=== PATIENT | male | born 1940 | race Caucasian/White ===

== ENCOUNTER → 2019-01-06 | Outpatient (CLI) | payer OTHER, MEDICARE ==
[2019-01-06 07:06] LABS: BASOPHILS # (AUTO) 0.1 10^3/uL (0.0-0.1); BASOPHILS % (AUTO) 1 % (0-10); EOSINOPHILS # (AUTO) 1.5 10^3/uL (0.0-0.3); EOSINOPHILS % (AUTO) 16 % (0-10); HEMATOCRIT 32 % (40-54); HEMOGLOBIN 10.2 G/DL (13.3-17.7); LYMPHOCYTES # (AUTO) 0.7 X 10^3 (1.0-4.0); LYMPHOCYTES % (AUTO) 7 % (12-44); MEAN CORPUSCULAR HEMOGLOBIN 32 PG (25-34); MEAN CORPUSCULAR HGB CONC 32 G/DL (32-36); MEAN CORPUSCULAR VOLUME 99 FL (80-99); MEAN PLATELET VOLUME 10.1 FL (7.4-10.4); MONOCYTES # (AUTO) 0.8 X 10^3 (0.0-1.0); MONOCYTES % (AUTO) 8 % (0-12); NEUTROPHILS # (AUTO) 6.4 X 10^3 (1.8-7.8); NEUTROPHILS % (AUTO) 69 % (42-75); PLATELET COUNT 259 10^3/uL (130-400); RED CELL DISTRIBUTION WIDTH 14.2 % (10.0-14.5); WHITE BLOOD COUNT 9.4 10^3/uL (4.3-11.0)
== END ==
LOC: LABNPT 06:54
PROVIDERS: ATTEND Family Medicine
DX: Z01.89 Encounter for other specified special examinations (principal)
CPT/HCPCS: 85025

== ENCOUNTER 2022-02-09 14:44 | Inpatient (IN) | payer MEDICARE, OTHER ==
[~2022-02-09] VITALS: Ht 172.7 cm; Wt 93.1 kg
[2022-02-09] MEDS ORDERED: MILK OF MAGNESIA 400 MG/5 ML 30 ML UDC PO PRN (16:00)
[2022-02-09] MEDS ORDERED: polyethylene glycoL POWDER 17 GM (MIRALAX) PACK PO PRN (16:00)
[2022-02-09] MEDS ORDERED: ONDANSETRON 4 MG (ZOFRAN) ORAL DISSOLVE TAB PO PRN (16:00)
[2022-02-09] MEDS ORDERED: DexMEDEtomidine 250 ML DRIP 250 ML IV SCH (16:00)
[2022-02-09] MEDS ORDERED: ONDANSETRON 4 MG/2 ML (SDV) Z0FRAN IV PRN (16:00)
[2022-02-09] MEDS ORDERED: NS IV 500 ML 500 ML IV PRN (16:00)
[2022-02-09] MEDS ORDERED: ACETAMINOPHEN 325 MG TABLET PO PRN (16:00)
[2022-02-09] MEDS ORDERED: MELATONIN 3 MG TABLET PO PRN (16:00)
[2022-02-09] MEDS ORDERED: BISACODYL 10 MG SUPP (DULCOLAX) PR PRN (16:00)
[2022-02-09] MEDS ORDERED: NS IV 1000 ML 1,000 ML IV SCH (16:00)
[2022-02-09] MEDS ORDERED: PHARMACY TO DOSE IV SCH (16:00)
[2022-02-09] MEDS ORDERED: ANTACID SUSP 30 ML UDC (MYLANTA) PO PRN (16:00)
[2022-02-09] MEDS ORDERED: LIDOCAINE UROJET 2% GEL 10 ML PKG TOP ONE (16:00)
[2022-02-09] MEDS ORDERED: LACTULOSE SYRUP 10GM/15ML (ENULOSE) 30ML UDC PO PRN (16:00)
[2022-02-09] MEDS ORDERED: diphenhydrAMINE 25 MG TAB (BENADRYL) PO PRN (16:00)
[2022-02-09] MEDS ORDERED: HYDROmorphone 2 MG/ML VIAL (DILAUDID) IV PRN (16:00)
[2022-02-09] MEDS ORDERED: LORazepam INJ 2 MG/ML (ATIVAN) VIAL IVP PRN (16:00)
[2022-02-09] MEDS ORDERED: CALCIUM CARBONATE 500 MG (TUMS) TAB.CHEW PO PRN (16:00)
[2022-02-09] MEDS ORDERED: diphenhydrAMINE 50 MG/ML INJ (BENADRYL) IVP PRN (16:00)
--- NOTE | 2022-02-09 16:16 | History & Physical ---
History of Present Illness HPI/Chief Complaint CC: Hypovolemic shock HPI: This is a 81yoWM clinic patient of Dr Toussaint who presented to the [facility] ER with weakness and inability to walk. He had come to [facility] ER on 02/07/22 for weakness and diarrhea and had a stable w/u in labs at that time so he was sent home but came back today with worsened symptoms and found to have hypovolemic shock requiring aggressive IVF and Levophed for a short time along with biPAP. His creat was 3.3 and baseline is 1.8 and had oliguria but just now starting to produce urine. I know him from prior admit when he was diagnosed with pancreatic mass sent to Dr Richards s/p biopsies of unknown result. 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 Abx was initiated of Cefepime and Vanc empirically. Hydrocortisone IV will be ordered along with aggressive IVF. Central line will be needed and I did consult Dr Gillette and he is aware along with consultation with Dr Crowley and he will see patient. Eliquis will be maintained at his reduced Eliquis dosing of 2.5mg PO BID. 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 History of neoplasm of pituitary gland Z86.03 Active Hyperlipidemia E78.5 Active COVID-19 U07.1 Historic Hyperlipidemia, unspecified E78.5 Active Adrenal insufficiency E27.40 10/25/2021 Historic 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 10/25/2021 Historic Chronic kidney disease N18.9 10/25/2021 Historic Pancreatic mass K86.89 10/25/2021 Historic Abdominal aortic aneurysm I71.4 10/25/2021 Historic Mitral regurgitation I34.0 10/25/2021 Historic Acute gastroenteritis K52.9 Active Past Surgical History: Surgery List 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 Drinks 2-3 glasses of vodka 3 times a week. No drug use. Smoking Status: Smoking Status: Former smoker, Cessation Education: Allergy List NSAID, medication BEE VENOM, medication WASP VENOM, medication PEN-VK, medication Source: patient, RN/MD, old records Exam Limitations: clinical condition Date Seen 02/09/22 Time Seen by a Provider: 15:30 Attending Physician PCP Admitting Physician: Latisha Og DO Attending Physician: Latisha Og DO Referring Physician Date of Admission Home Medications & Allergies Home Medications Reviewed patient Home Medication Reconciliation performed by pharmacy medication reconciliations pharmacy picking technician and/or nursing. Patients Allergies have been reviewed. Allergies Allergies Coded Allergies Penicillins (Verified Allergy, Unknown, 02/09/22) Past Txzuanb-Ztyalt-Hdlurn Hx Past Med/Social Hx: Reviewed Nursing Past Med/Soc Hx, Reviewed and Corrections made Patient Social History Marrital Status: single Employed/Student: retired Alcohol Use: Occasionally Uses Smoking Status: Former Smoker Past Medical History Surgeries: Abdominal Respiratory: COPD Cardiac: Atrial Fibrillation, Coronary Artery Disease, High Cholesterol, Hypertension, Peripheral Vascular Neurological: Neuropathy Gastrointestinal: Gastroesophageal Reflux pancreatic mass Musculoskeletal: Arthritis Cancer: Pancreatic (?? biopsy pending) Review of Systems Constitutional: see HPI, dizziness, malaise, weakness EENTM: no symptoms reported Respiratory: cough, dyspnea on exertion Cardiovascular: no symptoms reported Gastrointestinal: no symptoms reported Genitourinary: no symptoms reported Musculoskeletal: no symptoms reported, back pain, joint pain Skin: no symptoms reported Psychiatric/Neurological: Anxiety Physical Exam Physical Exam Vital Signs Capillary Refill : Height, Weight, BMI Height: '" Weight: lbs. oz. kg; BMI Method: General Appearance: WD/WN, Anxious, Chronically ill, Moderate Distress Eyes: Bilateral Eye Normal Inspection, Bilateral Eye PERRL HEENT: PERRL/EOMI, Normal ENT Inspection, Pharynx Normal, Other (dry MM) Neck: Full Range of Motion, Normal Inspection, Non Tender, Supple, Carotid Bruit Respiratory: Chest Non Tender, Lungs Clear, No Accessory Muscle Use, No Respira tory Distress, Decreased Breath Sounds Cardiovascular: No Edema, No Gallop, No JVD, No Murmur, Normal Peripheral Pulses, Irregularly Irregular, Tachycardia Gastrointestinal: Normal Bowel Sounds, No Organomegaly, No Pulsatile Mass, Non Tender, Soft Back: Normal Inspection, No CVA Tenderness, No Vertebral Tenderness Extremity: Normal Capillary Refill, Normal Inspection, Normal Range of Motion, Non Tender, No Calf Tenderness, No Pedal Edema Neurologic/Psychiatric: Alert, Oriented x3, sap ppm consultant II-XII Norm as Tested, Depressed Affect, Motor Weakness Skin: Normal Color, Warm/Dry Lymphatic: No Adenopathy Results Results/Procedures Labs Patient resulted labs reviewed. Assessment/Plan Admission Diagnosis Assessment/Plan: Hypovolemic shock from recent diarrhea Oliguria maintain with muñoz and monitor closely ISREAL on CKD aggressive IVF 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 100mg IV Q6 hours Presumed PNA Pulmonary edema on CXR Chronic AF OAC maintained on reduced dose HTN HLP COPD GERD AAA Pancreatic mass managed by Dr Richards Admission Status: Inpatient Order (span 2 midnights) Reason for Inpatient Admission: reps failure with ISREAL Diagnosis/Problems Diagnosis/Problems (1) Hypovolemic shock LATISHA OG DO Feb 09, 2022 16:16
--- NOTE | 2022-02-09 18:01 | Tele-ICU Consult ---
Progress Note 81 y/o male who presents to ED with weakness and diarrhea. Was in ED several days ago with same complaint and discharged Now presents with ISREAL and shock Also has hx of hypopituitaryism on prednisione and synthroid Has a fib on eliquis IMP: hypovolemic shock PLAN: he was empirically started on antibiotics to cover sepsis Continue eliquius Aggressive hydration to treat ISREAL and hypotension Focused Exam Height, Weight, BMI Height: '" Weight: lbs. oz. kg; BMI Method: Results Results/Procedures Labs Patient resulted labs reviewed. GENARO LLOYD MD Feb 09, 2022 18:01
--- NOTE | 2022-02-09 18:24 | Diagnostic Imaging Report ---
INDICATION: Shortness of breath. COMPARISON: No comparison is available. FINDINGS: There are prominent interstitial markings within the lungs that may relate to interstitial lung disease. There are also airspace opacities at the left lung base and also the medial aspect of the right lung base that could reflect superimposed atelectasis or pneumonia. There is no large effusion. There is no pneumothorax. Heart size is appropriate. Central pulmonary vascularity appears normal. IMPRESSION: Probable background features of chronic interstitial lung disease with airspace opacities at the lung bases that may reflect superimposed atelectasis or pneumonia. Dictated by: Dictated on workstation # [id number]
--- NOTE | 2022-02-09 19:53 | CONSULTATION REPORT ---
ADMITTING PHYSICIAN: Dr. Dugan. ATTENDING PRIMARY CARE PHYSICIAN: Dr. Hina Toussaint. HISTORY OF PRESENT ILLNESS: The patient is a 81-year-old male who presented to [facility] Emergency Department with weakness and inability to walk. He had come to the Emergency Department 2 days previous for weakness and diarrhea and his labs were stable and he was sent home. He returned with worsening symptoms and appeared to be in hypovolemic shock and was treated with IV fluids as well as Levophed and also placed on BiPAP. The patient does also have very poor peripheral venous circulation and may need respiratory support with a ventilator as well as vasopressors and will require a central venous catheter. He is also on Eliquis for atrial fibrillation. PAST MEDICAL HISTORY: Atrial fibrillation, hypercholesterolemia, fibromyositis, COPD, hypertension, hypopituitarism, history of mycoplasma pneumoniae, anxiety, adrenocortical hypofunction, hyperlipidemia, history of COVID, adrenal insufficiency, chronic kidney disease, abdominal aortic aneurysm, mitral regurgitation, history of peptic ulcer disease. PAST SURGICAL HISTORY: Transsphenoidal excision of pituitary tumor 12, endovascular stent placement 15, tonsillectomy. ALLERGIES: PREDNISONE. MEDICATIONS: Apixaban 2.5 mg b.i.d., bisacodyl 10 mg per rectum p.r.n., diphenhydramine p.r.n., lorazepam p.r.n., lactulose p.r.n., Zofran p.r.n. SOCIAL HISTORY: Previous smoker, quit 2016, 40 pack years. Positive for alcohol, 3 times a week, drinking approximately 2-3 drinks per episode. FAMILY HISTORY: Father, bladder cancer. Mother, breast cancer. VITAL SIGNS: Stable. Oxygen saturation 100% on 3 liters nasal cannula. REVIEW OF SYSTEMS: This is a well-nourished male and currently in no acute distress. He is not experiencing any shortness of breath or difficulty breathing. No chest pain, palpitations or diaphoresis. No nausea or vomiting with intermittent episodes of loose stools, no red blood per rectum, no dark tarry stools. No fever or chills. No recent inadvertent weight loss. All other review of systems negative. PHYSICAL EXAMINATION: CHEST: Clear, good breath sounds bilaterally. HEART: Regular, no murmurs. EXTREMITIES: No lower extremity edema. Negative Homans sign. HEENT: No scleral icterus. No cervical lymphadenopathy. ABDOMEN: Soft, nontender, nondistended. SKIN: Warm, dry. LABORATORY DATA: WBC on 01/06 was 9.4, hemoglobin 10.2, hematocrit 32, platelets 258. ASSESSMENT AND PLAN: A 81-year-old male with septic shock of unknown etiology. This may be due to a respiratory source; however, there is the possibility of a gastrointestinal source. Either way, he does have extremely poor peripheral venous circulation and will require central venous access for probable vasopressor support and if he does have respiratory failure requiring intubation, he will also need the central venous catheter. Job ID: [id number] DocumentID: [id number] Dictated Date: 02/09/2022 19:13:16 Teacher Of The Emotionally Disturbed Date: 02/09/2022 19:51:00 Dictated By: PUSHPA COCHRAN MD
--- NOTE | 2022-02-09 20:30 | Diagnostic Imaging Report ---
INDICATION: Line placement. COMPARISON: Chest radiograph from earlier the same day. FINDINGS: A new left subclavian central line has been placed and terminates within the SVC. There is no pneumothorax. Interstitial changes are again noted. Aeration of the lung bases appears improved from the previous examination suggesting that the prior finding was more likely atelectasis than pneumonia. There is no large effusion. There is no pneumothorax. Heart size and mediastinal contours are stable. IMPRESSION: 1. Status post placement of a left subclavian line without pneumothorax. 2. Background features of COPD. 3. As the aeration of the lung bases has improved compared to the prior exam, this suggests the airspace opacities at the lung bases were more likely atelectasis than pneumonia. Dictated by: Dictated on workstation # [id number]
[2022-02-09] MEDS ORDERED: CEFEPIME INJECTION 2,000 MG in NS (IVPB) 50 ML IV SCH (21:00)
[2022-02-09 21:37] LABS: BASOPHILS % (AUTO) 0 % (0-10); EOSINOPHILS # (AUTO) 0.1 10^3/uL (0.0-0.3); EOSINOPHILS % (AUTO) 0 % (0-10); HEMATOCRIT 34 % (40-54); HEMOGLOBIN 11.1 g/dL (13.3-17.7); LYMPHOCYTES # (AUTO) 0.2 10^3/uL (1.0-4.0); LYMPHOCYTES % (AUTO) 1 % (12-44); MEAN CORPUSCULAR HEMOGLOBIN 33 pg (25-34); MEAN CORPUSCULAR HGB CONC 32 g/dL (32-36); MEAN CORPUSCULAR VOLUME 101 fL (80-99); MEAN PLATELET VOLUME 9.1 fL (9.0-12.2); MONOCYTES # (AUTO) 0.5 10^3/uL (0.0-1.0); MONOCYTES % (AUTO) 3 % (0-12); NEUTROPHILS # (AUTO) 17.6 10^3/uL (1.8-7.8); NEUTROPHILS % (AUTO) 95 % (42-75); PLATELET COUNT 240 10^3/uL (130-400); WHITE BLOOD COUNT 18.5 10^3/uL (4.3-11.0)
[2022-02-09 21:55] LABS: ALBUMIN 2.9 GM/DL (3.2-4.5); BILIRUBIN,TOTAL 0.7 MG/DL (0.1-1.0); CALCIUM 7.7 MG/DL (8.5-10.1); CREATININE SERUM 2.66 MG/DL (0.60-1.30); POTASSIUM 5.8 MMOL/L (3.6-5.0)
[2022-02-09 22:05] LABS: LYMPHOCYTES % (MANUAL) 3 %; MONOCYTES % (MANUAL) 2 %; NEUTROPHILS % (MANUAL) 95 %; POLYCHROMASIA MARKED
[2022-02-09 22:15] LABS: FREE T4 (FREE THYROXINE) 1.02 NG/DL (0.70-1.48)
[2022-02-09] MEDS ORDERED: VANCOMYCIN 500 MG/NS 100 ML IV ONE ×2 (22:15)
[2022-02-09 22:23] LABS: ABG OXYGEN SATURATION 54 % (94-100); ABG PCO2 47 MMHG (35-45); ABG TCO2 19.4 MMOL/L (21.0-31.0)
[2022-02-09] MEDS: DOCUSATE SODIUM 100 MG (COLACE) CAP PO SCH (22:24)
[2022-02-09] MEDS: SENNOSIDES 8.6 MG (SENOKOT) TAB PO SCH (22:25)
[2022-02-09 22:33] LABS: ABG PO2 32 MMHG (79-93); ALLENS TEST YES-POS; PATIENT TEMP 35.9; VENTILATOR NO
[2022-02-09] MEDS: NS IV 1000 ML 1,000 ML IV SCH (23:18)
[2022-02-09] MEDS: APIXABAN 2.5 MG (ELIQUIS) TABLET PO SCH (23:18)
[2022-02-09] MEDS: LORazepam 0.5 MG (ATIVAN) TABLET PO PRN (23:18)
[2022-02-09] MEDS: HYDROCORTISONE 100 MG/2 ML (Solu-CORTEF) VIAL IV SCH (23:19)
[2022-02-09] MEDS: NOREPINEPHRINE 8 MG/250 ML 250 ML IV SCH (23:20)
[2022-02-09] MEDS: CEFEPIME 1,000 MG/NS 50 ML IVPB IV SCH ×2 (23:20)
[2022-02-09] MEDS: inSUlin ASPART (NovoLOG) 1 UNIT/0.01 ML (CHARGE PER UNIT) SC SCH (23:27)
[2022-02-10 01:29] VITALS: BP 122/62
[2022-02-10] MEDS ORDERED: RT-ALBUTEROL/IPRATROPIUM 3 ML (DUONEB) VIAL INH PRN (01:45)
[2022-02-10] MEDS: RT-ALBUTEROL/IPRATROPIUM 3 ML (DUONEB) VIAL INH SCH ×4 (02:43→21:29)
--- NOTE | 2022-02-10 04:06 | OPERATIVE REPORT ---
DATE OF SERVICE: 02/09/2022 ATTENDING PRIMARY CARE PHYSICIAN: Hina Toussaint MD ADMITTING PHYSICIAN: Latisha Dugan DO PREOPERATIVE DIAGNOSIS: Symptomatic septic shock. POSTOPERATIVE DIAGNOSIS: Symptomatic septic shock. PROCEDURE: Placement of left subclavian central venous catheter. SURGEON: Pushpa Cochran MD ANESTHESIA: Local. ESTIMATED BLOOD LOSS: Minimal. FINDINGS: Catheter tip at the superior vena cava -- right atrial junction. DISPOSITION: The patient tolerated the procedure well. INDICATIONS: The patient is a 81-year-old male who was seen at [facility] Emergency Department with feelings of weakness as well as diarrhea and shortness of breath. He reports that he presented 2 days previous and his symptoms warrant as bad and he also had diarrhea at the time. He states this time around, he was short of breath and also did have some crampy abdominal pain. He was also found to be hypotensive. The patient has very poor peripheral venous circulation and will require a central venous catheter for possible vasopressors as well as medications after intubation, if necessary. DESCRIPTION OF PROCEDURE: The chest and neck were prepped and draped in standard surgical fashion. 1% lidocaine was then used to anesthetize the left subclavian region. The left subclavian vein was then cannulated with drawing of venous blood. The guidewire was then inserted without any resistance. The cannulating needle was removed and a skin incision was made using an 11 blade. A tract was then created through the abdominal wall layers using a venous dilator and through this opening, a triple lumen central venous catheter was placed over the guidewire using the Seldinger technique. All 3 ports bishop venous blood and saline pushed down without any resistance. The catheter was then sutured to the skin using 3-0 Vicryl interrupted sutures. The catheter was then cleaned and covered with Op-Site. The patient tolerated the procedure well. We will get a postprocedure chest x-ray and once confirmation of placement, the catheter may be accessed to use at any time report. Job ID: [id number] DocumentID: [id number] Dictated Date: 02/09/2022 19:17:16 Rn Acute Date: 02/10/2022 04:04:00 Dictated By: PUSHPA COCHRAN MD [facility]
[2022-02-10] MEDS: HYDROCORTISONE 100 MG/2 ML (Solu-CORTEF) VIAL IV SCH ×4 (05:23→23:54)
[2022-02-10 05:52] LABS: BASOPHILS % (AUTO) 0 % (0-10); EOSINOPHILS % (AUTO) 0 % (0-10); HEMATOCRIT 33 % (40-54); HEMOGLOBIN 10.4 g/dL (13.3-17.7); LYMPHOCYTES # (AUTO) 0.2 10^3/uL (1.0-4.0); LYMPHOCYTES % (AUTO) 1 % (12-44); MEAN CORPUSCULAR HEMOGLOBIN 31 pg (25-34); MEAN CORPUSCULAR HGB CONC 32 g/dL (32-36); MEAN CORPUSCULAR VOLUME 98 fL (80-99); MEAN PLATELET VOLUME 9.4 fL (9.0-12.2); MONOCYTES # (AUTO) 0.5 10^3/uL (0.0-1.0); MONOCYTES % (AUTO) 3 % (0-12); NEUTROPHILS # (AUTO) 17.8 10^3/uL (1.8-7.8); NEUTROPHILS % (AUTO) 95 % (42-75); PLATELET COUNT 252 10^3/uL (130-400); WHITE BLOOD COUNT 18.7 10^3/uL (4.3-11.0)
[2022-02-10 06:16] LABS: ALBUMIN 2.7 GM/DL (3.2-4.5); BILIRUBIN,TOTAL 0.5 MG/DL (0.1-1.0); CALCIUM 7.5 MG/DL (8.5-10.1); CREATININE SERUM 2.61 MG/DL (0.60-1.30); MAGNESIUM 1.6 MG/DL (1.6-2.4); PHOSPHORUS 4.8 MG/DL (2.3-4.7); POTASSIUM 5.4 MMOL/L (3.6-5.0); TOTAL PROTEIN 4.9 GM/DL (6.4-8.2)
[2022-02-10] MEDS: KCL 20 MEQ TAB (K-DUR) PO SCH (06:43)
[2022-02-10] MEDS: POTASSIUM CL 10MEQ/50ML IVPB 50 ML IV SCH (06:43)
[2022-02-10] MEDS: inSUlin ASPART (NovoLOG) 1 UNIT/0.01 ML (CHARGE PER UNIT) SC SCH ×4 (06:45→20:54)
[2022-02-10] MEDS: MAGNESIUM 1 GM/100 ML IVPB 100 ML IV SCH ×2 (06:57→09:00)
--- NOTE | 2022-02-10 08:52 | Consultation-Cardiology ---
HPI-Cardiology Cardiology Consultation: Date of Consultation 02/10/22 Time Seen by a Provider: 08:15 Date of Admission 02-09-22 Attending Physician Admitting Physician Admitting Physician: Latisha Dugan DO Attending Physician: Latisha Dugan DO Consulting Physician Олег Crowley MD HPI: Chief Complaint: A-fib Mr. Arevalo is a 81 yr old male admitted as a direct admit from [facility]. He reports for the last few days he has had increasing weakness, fatigue, nausea, SOB. He had been having diarrhea, but reports this has resolved. He denies any c/o CP, palpitations, syncope, near syncope or LE swelling. He does wear oxygen at . His primary renewable energy broker is Dr. Mckenna at [place]. He reports he is feeling better this morning. Review of Systems-Cardiology Review of Systems Constitutional: No chills; malaise Eyes: No vision change Ears/Nose/Throat: No epistaxis, No recent hearing loss Respiratory: As described under HPI Cardiovascular: As described under HPI Gastrointestinal: As described under HPI Genitourinary: No dysuria, No hematuria Musculoskeletal: no symptoms reported Skin: No rash on exposed areas, No ulcerations on exposed areas Psychiatric/Neurological: anxiety; No seizure, No focal weakness, No syncope Hematologic: No bleeding abnormalities VVT-[id number]-Rroktn Hx Patient Social History Marrital Status: single Employed/Student: retired Smoking Status: Former Smoker Have you traveled recently?: No Alcohol Use?: Yes Pt feels they are or have been: No Past Medical History PMH As described under Assessment. Family Medical History Family Medical History: He reports his father had "heart trouble"; exact details unknown. Allergies and Home Medications Allergies Coded Allergies: Penicillins (Verified Allergy, Unknown, 02/09/22) Patient Home Medication List Albuterol Sulfate (Ventolin Hfa) 90 Mcg Hfa.aer.ad, 1 PUFF INH Q4H PRN for SHORTNESS OF BREATH, (Reported) Entered as Reported by: PAULA CALZADA on 02/10/22 1111 Last Action: Reviewed Alprazolam (Alprazolam) 1 Mg Tablet, 1 MG PO HS, (Reported) Entered as Reported by: PAULA CALZADA on 02/10/22 1111 Last Action: Reviewed Atorvastatin Calcium (Atorvastatin Calcium) 20 Mg Tablet, 20 MG PO HS, (Reported) Entered as Reported by: PAULA CALZADA on 02/10/221110 Last Action: Reviewed Doxepin HCl (Doxepin HCl) 25 Mg Capsule, 25 MG PO HS PRN for SLEEP, (Reported) Entered as Reported by: PAULA CALZADA on 02/10/221110 Last Action: Reviewed Fluticasone Propionate (Flonase Allergy Relief) 50 Mcg/Actuation [place].susp, 1 SPRAY NS DAILY PRN for CONGESTION, (Reported) Entered as Reported by: PAULA CALZADA on 02/10/221110 Last Action: Reviewed Folic Acid (Folic Acid) 1 Mg Tablet, 1 MG PO DAILY, (Reported) Entered as Reported by: PAULA CALZADA on 02/10/221110 Last Action: Reviewed Furosemide (Furosemide) 20 Mg Tablet, 20 MG PO DAILY PRN for FLUID RETENTION, (Reported) Entered as Reported by: PAULA CALZADA on 02/10/221110 Last Action: Reviewed Levothyroxine Sodium (Levothyroxine Sodium) 125 Mcg Tablet, 125 MCG PO DAILY, (Reported) Entered as Reported by: PAULA CALZADA on 02/10/221110 Last Action: Reviewed Metoprolol Succinate (Metoprolol Succinate) 50 Mg Tab.er.24h, 25 MG PO BID, (Reported) Entered as Reported by: PAULA CALZADA on 02/10/221110 Last Action: Reviewed Pantoprazole Sodium (Pantoprazole Sodium) 40 Mg Tablet.dr, 40 MG PO DAILY, (Rep orted) Entered as Reported by: PAULA CALZADA on 02/10/221110 Last Action: Reviewed Prednisone (Prednisone) 10 Mg Tab, 10 MG PO DAILY, (Reported) Entered as Reported by: PAULA CALZADA on 02/10/221110 Last Action: Reviewed Discontinued Medications Apixaban (Eliquis) 2.5 Mg Tablet, 2.5 MG PO BID, (Reported) Discontinued Reason: No Longer Taking Entered as Reported by: PAULA CALZADA on 02/10/221110 Last Action: Discontinued Physical Exam-Cardiology Physical Exam Vital Signs/I&O 02/10/22 02/10/22 02/10/22 02/10/22 20:00 20:00 20:10 21:00 Temp 36.8 Pulse 117 112 Resp 22 B/P (MAP) 130/71 (90) 135/81 (99) Pulse Ox 94 96 95 O2 Delivery Nasal Cannula Nasal Cannula Nasal Cannula O2 Flow Rate 2.00 2.00 2.00 02/10/22 02/10/22 02/10/22 02/10/22 21:29 22:00 23:00 23:19 Pulse 120 122 Resp 17 B/P (MAP) 147/80 (102) 125/60 (81) Pulse Ox 95 95 98 95 O2 Delivery Nasal Cannula Nasal Cannula Nasal Cannula Nasal Cannula O2 Flow Rate 2.00 2.00 2.00 2.00 02/11/22 02/11/22 02/11/22 02/11/22 00:00 01:00 01:00 02:00 Pulse 112 112 112 112 Resp 25 22 B/P (MAP) 131/67 (88) 153/75 (101) 112/63 (79) Pulse Ox 100 97 95 O2 Delivery Nasal Cannula Nasal Cannula Nasal Cannula O2 Flow Rate 2.00 2.00 2.00 02/11/22 02/11/22 02/11/22 02/11/22 03:00 04:00 04:00 04:00 Temp 37.0 Pulse 107 114 Resp 22 28 B/P (MAP) 135/64 (87) 133/68 (89) Pulse Ox 95 96 94 O2 Delivery Nasal Cannula Nasal Cannula Nasal Cannula Nasal Cannula O2 Flow Rate 2.00 2.00 2.00 2.00 02/11/22 02/11/22 02/11/22 05:00 06:00 07:21 Pulse 112 106 Resp 22 30 B/P (MAP) 132/79 (96) 133/98 (110) Pulse Ox 95 97 96 O2 Delivery Nasal Cannula Nasal Cannula Nasal Cannula O2 Flow Rate 2.00 2.00 2.00 02/11/22 00:00 Intake Total 2100 ml Output Total 495 ml Balance 1605 ml Capillary Refill : Constitutional: AAO x 3, well-developed, well-nourished HEENT: PERRL, hearing is well preserved, oral hygience is good Neck: No carotid bruit; carotid pulses are 2 + bilaterally Respiratory: No accessory muscle use, No respiratory distress; chest expansion is symmetric, chest is bilaterally symmetric, rhonchi (scattered), other (diminished throughout) Cardiovascular: irregularly irregular; No JVD; S1 and S2, systolic murmur Gastrointestinal: No tender; soft, round, audible bowel sounds Extremities: other (mild bilat LE swelling) Neurologic/Psychiatric: grossly intact (moves all extremities) Skin: No rash on exposed areas, No ulcerations on exposed areas; other (friable skin on arms) Data Review Labs Laboratory Tests 02/10/22 10:30: Blood Gas Puncture Site NA, Blood Gas Patient Temperature 37.0, Arterial Blood pH 7.20*L, Arterial Blood Partial Pressure CO2 33L, Arterial Blood Partial Pressure O2 85, Arterial Blood HCO3 13*L, Arterial Blood Total CO2 13.7L, Arterial Blood Oxygen Saturation 96, Arterial Blood Base Excess -13.8L, Nickolas Test NA, Blood Gas Ventilator Setting NO, Blood Gas Inspired Oxygen NA 02/10/22 10:51: Glucometer 190H 02/10/22 15:40: Sodium Level 134L, Potassium Level 4.6, Chloride Level 104, Carbon Dioxide Level 18L, Anion Gap 12, Blood Urea Nitrogen 36H, Creatinine 2.66H, Estimat Glomerular Filtration Rate 24, BUN/Creatinine Ratio 14, Glucose Level 242H, Lactic Acid Level 2.92*H, Calcium Level 7.3L 02/10/22 15:43: Glucometer 228H 02/10/22 20:40: Glucometer 248H 02/10/22 23:00: Sodium Level 134L, Potassium Level 3.8, Chloride Level 102, Carbon Dioxide Level 18L, Anion Gap 14, Blood Urea Nitrogen 40H, Creatinine 2.59H, Estimat Glomerular Filtration Rate 24, BUN/Creatinine Ratio 15, Glucose Level 293H, Calcium Level 6.9L 02/11/22 01:09: Glucometer 299H 02/11/22 03:45: Sodium Level 135, Potassium Level 3.8, Chloride Level 100, Carbon Dioxide Level 21, Anion Gap 14, Blood Urea Nitrogen 41H, Creatinine 2.44H, Estimat Glomerular Filtration Rate 26, BUN/Creatinine Ratio 17, Glucose Level 288H, Calcium Level 6.8L, White Blood Count 13.7H, Red Blood Count 2.69L, Hemoglobin 8.4L, Hematocrit 26L, Mean Corpuscular Volume 96, Mean Corpuscular Hemoglobin 31, Mean Corpuscular Hemoglobin Concent 33, Red Cell Distribution Width 14.1, Platelet Count 184, Mean Platelet Volume 9.6, Immature Granulocyte % (Auto) 1, Neutrophils (%) (Auto) 94H, Lymphocytes (%) (Auto) 0L, Monocytes (%) (Auto) 5, Eosinophils (%) (Auto) 0, Basophils (%) (Auto) 0, Neutrophils # (Auto) 12.9H, Lymphocytes # (Auto) 0.1L, Monocytes # (Auto) 0.6, Eosinophils # (Auto) 0.0, Basophils # (Auto) 0.0, Immature Granulocyte # (Auto) 0.1, Lactic Acid Level 4.02*H, Corrected Calcium 8.0L, Phosphorus Level 2.9, Magnesium Level 1.9, Total Bilirubin 0.3, Aspartate Amino Transf (AST/SGOT) 37H, Alanine Aminotransferase (ALT/SGPT) 23, Alkaline Phosphatase 58, Total Protein 4.5L, Albumin 2.5L 02/11/22 03:50: Blood Gas Puncture Site LEFT RADIAL, Blood Gas Patient Temperature 37, Arterial Blood pH 7.41, Arterial Blood Partial Pressure CO2 36, Arterial Blood Partial Pressure O2 80, Arterial Blood HCO3 23, Arterial Blood Total CO2 24.0, Arterial Blood Oxygen Saturation 97, Arterial Blood Base Excess -1.1, Nickolas Test YES-POS, Blood Gas Ventilator Setting NO, Blood Gas Inspired Oxygen 2L A/P-Cardiology Assessment/Admission Diagnosis Progressive weakness Diarrhea Acute on chronic exacerbation of COPD - management per medical/eICU services Acute on chronic renal disease - reports follows with nephrology at [place] in [place], [place] Chronic a-fib - BB for rate control - OAC with Eliquis (low dose d/t renal dz) H/O AAA repair approx 8 yrs ago - reports h/o re-do AAA repair with endo-graft x 2 approx 2 months ago in [place], [place] H/O pituitary tumor (benign) 11 yrs ago Hyperthyroidisim - according to lab of 02-10-22 (TSH 0.00) Anxiety Noc hypoxia - oxygen at 2.5 L/NC at hs H/O tobaccoism - quit 5 yrs ago after a 45-50 yr smoking history Discussion and Recomendations Progressive weakness - management per medical services Acute on chronic exacerbation of COPD with possible pneumonia - management per medical services Chronic a-fib - HR not ideal - resume home dose of BB - continue OAC with Eliquis for stroke prophylaxis (already on renal dosing) Echocardiogram today Acute on chronic renal dz - Cr improving with IVF hydration Request records from Dr. Mckenna at [place] Further recs will be based on his hospital course We would like to thank medical services for this consult WON SEXTON Feb 10, 2022 08:52
[2022-02-10] MEDS: PANTOPRAZOLE 40 MG (PROTONIX) VIAL IV SCH (09:00)
[2022-02-10] MEDS: APIXABAN 2.5 MG (ELIQUIS) TABLET PO SCH ×2 (09:00→20:52)
[2022-02-10] MEDS: NS IV 1000 ML 1,000 ML IV SCH ×2 (09:00)
[2022-02-10] MEDS: DOCUSATE SODIUM 100 MG (COLACE) CAP PO SCH ×2 (09:01→21:15)
[2022-02-10] MEDS: SENNOSIDES 8.6 MG (SENOKOT) TAB PO SCH ×2 (09:01→21:15)
--- NOTE | 2022-02-10 09:02 | Diagnostic Imaging Report ---
INDICATION: Dyspnea. Comparison is made with prior examination 02/09/2022 FINDINGS: The heart size is stable. There is bibasilar subsegmental atelectasis and/or pneumonitis. There is no pleural effusion or pneumothorax. Mediastinum is unremarkable. A left subclavian central venous catheter has its tip in the upper superior vena cava. IMPRESSION: Bibasilar subsegmental atelectasis and/or pneumonitis. Dictated by: Dictated on workstation # [id number]
[2022-02-10] MEDS: CEFEPIME 1,000 MG/NS 50 ML IVPB IV SCH ×4 (09:43→22:24)
[2022-02-10] MEDS: NOREPINEPHRINE 8 MG/250 ML 250 ML IV SCH (10:53)
[2022-02-10 11:03] LABS: ABG BASE EXCESS -13.8 MMOL/L (-2.5-2.5); ABG OXYGEN SATURATION 96 % (94-100); ABG PCO2 33 MMHG (35-45); ABG PO2 85 MMHG (79-93); ABG TCO2 13.7 MMOL/L (21.0-31.0)
[2022-02-10] MEDS ORDERED: METO50TA7 PO (11:11)
[2022-02-10] MEDS ORDERED: FLUT9.9S NS (11:11)
[2022-02-10] MEDS ORDERED: ALBU18HF2 INH (11:11)
[2022-02-10] MEDS ORDERED: ALPR1TAB7 PO (11:11)
[2022-02-10] MEDS ORDERED: FURO20TA4 PO (11:11)
[2022-02-10] MEDS ORDERED: LEVO125T6 PO (11:11)
[2022-02-10] MEDS ORDERED: PANT40TA52 PO (11:11)
[2022-02-10] MEDS ORDERED: ATOR20TA66 PO (11:11)
[2022-02-10] MEDS ORDERED: DOXE25CA46 PO (11:11)
[2022-02-10] MEDS ORDERED: APIX2.5T PO (11:11)
[2022-02-10] MEDS ORDERED: FOLI1TAB33 PO (11:11)
[2022-02-10] MEDS ORDERED: PRD10T PO (11:11)
[2022-02-10 11:27] LABS: VENTILATOR NO
--- NOTE | 2022-02-10 11:56 | Progress Note ---
[facility] 02/10/22 1156: Subjective Date Seen by a Provider: Feb 10, 2022 Time Seen by a Provider: 09:45 Subjective/Events-last exam This is a 81yoWM clinic patient of Dr Toussaint who presented to the [facility] ER 02/09/22 with weakness requiring aggressive IVF and Levophed via central line for a short time along with biPAP which he is no longer on. He does wear oxygen at hs, 2.5L via NC. His primary fountain brush assembler is Dr. Mckenna at [facility]. Today he states he is feeling better without any new complaints. Denies CP, SOB, abdominal pain. His last BM was yesterday and was loose. Urine output from muñoz was 300 cc overnight. CXR today with bibasilar subsegmental atelectasis and/or pneumonitis. Cardiology was consulted and he was seen by Dr. Crowley today. His daughter is working with social workers to obtain a home health aid for pt. Review of Systems General: No Chills, No Night Sweats HEENT: No Head Aches, No Visual Changes Pulmonary: No Dyspnea, No Cough Cardiovascular: No: Chest Pain, Palpitations Gastrointestinal: No: Nausea, Vomiting, Abdominal Pain Genitourinary: No Dysuria, No Frequency Musculoskeletal: No: neck pain, shoulder pain Neurological: No: Weakness, Numbness Focused Exam Lactate Level 02/09/22 21:25: Lactic Acid Level 1.43 Objective Exam Last Set of Vital Signs Vital Signs Date Time Temp Pulse Resp B/P (MAP) Pulse Ox O2 Delivery O2 Flow Rate FiO2 02/10/22 11:27 Nasal Cannula 3.00 02/10/22 10:00 126 38 120/106 (111) 93 02/10/22 08:00 36.8 Capillary Refill : I&O Intake and Output 02/10/22 00:00 Intake Total 200 ml Output Total 200 ml Balance 0 ml Intake Oral 200 ml Output Urine Total 200 ml Daily Weight Change Unsure General: Alert, Oriented X3, Cooperative, No Acute Distress HEENT: PERRLA, EOMI Neck: Supple, No JVD Lungs: Other (decreased breath sounds throughout) Heart: Normal S1, Normal S2, Other (irregularly irregular) Abdomen: Normal Bowel Sounds, Soft, No Tenderness Extremities: No Cyanosis, Normal Pulses Skin: No Significant Lesion Neuro: Normal Speech Psych/Mental Status: Mental Status NL, Mood NL Results Lab Laboratory Tests 02/09/22 21:25: White Blood Count 18.5H, Red Blood Count 3.41L, Hemoglobin 11.1L, Hematocrit 34L , Mean Corpuscular Volume 101H, Mean Corpuscular Hemoglobin 33, Mean Corpuscular Hemoglobin Concent 32, Red Cell Distribution Width 14.0, Platelet Count 240, Mean Platelet Volume 9.1, Immature Granulocyte % (Auto) 1, Neutrophils (%) (Auto) 95H, Lymphocytes (%) (Auto) 1L, Monocytes (%) (Auto) 3, Eosinophils (%) (Auto) 0, Basophils (%) (Auto) 0, Neutrophils # (Auto) 17.6H, Lymphocytes # (Auto) 0.2L, Monocytes # (Auto) 0.5, Eosinophils # (Auto) 0.1, Basophils # (Auto) 0.0, Immature Granulocyte # (Auto) 0.2H, Neutrophils % (Manual) 95, Lymphocytes % (Manual) 3, Monocytes % (Manual) 2, Polychromasia MARKED, Sodium Level 134L, Potassium Level 5.8H, Chloride Level 105, Carbon Dioxide Level 15L, Anion Gap 14, Blood Urea Nitrogen 27H, Creatinine 2.66H, Estimat Glomerular Filtration Rate 24, BUN/Creatinine Ratio 10, Glucose Level 158H, Lactic Acid Level 1.43, Calcium Level 7.7L, Corrected Calcium 8.6, Total Bilirubin 0.7, Aspartate Amino Transf (AST/SGOT) 73H, Alanine Aminotransferase (ALT/SGPT) 32, Alkaline Phosphatase 65, Total Protein 5.0L, Albumin 2.9L, Procalcitonin 4.04H, Thyroid Stimulating Hormone (TSH) 0.00L, Free Thyroxine 1.02 02/09/22 22:10: Blood Gas Puncture Site LEFT RADIAL, Blood Gas Patient Temperature 35.9, Arterial Blood pH 7.20*L, Arterial Blood Partial Pressure CO2 47H, Arterial Blood Partial Pressure O2 32*L, Arterial Blood HCO3 18L, Arterial Blood Total CO2 19.4L, Arterial Blood Oxygen Saturation 54L, Arterial Blood Base Excess - 9.0L, Nickolas Test YES-POS, Blood Gas Ventilator Setting NO, Blood Gas Inspired Oxygen NA 02/09/22 23:27: Glucometer 160H 02/10/22 05:27: White Blood Count 18.7H, Red Blood Count 3.36L, Hemoglobin 10.4L, Hematocrit 33L , Mean Corpuscular Volume 98, Mean Corpuscular Hemoglobin 31, Mean Corpuscular Hemoglobin Concent 32, Red Cell Distribution Width 13.8, Platelet Count 252, Mean Platelet Volume 9.4, Immature Granulocyte % (Auto) 1, Neutrophils (%) (Auto) 95H, Lymphocytes (%) (Auto) 1L, Monocytes (%) (Auto) 3, Eosinophils (%) (Auto) 0, Basophils (%) (Auto) 0, Neutrophils # (Auto) 17.8H, Lymphocytes # (Auto) 0.2L, Monocytes # (Auto) 0.5, Eosinophils # (Auto) 0.0, Basophils # (Auto) 0.0, Immature Granulocyte # (Auto) 0.2H, Sodium Level 134L, Potassium Level 5.4H, Chloride Level 107, Carbon Dioxide Level 15L, Anion Gap 12, Blood Urea Nitrogen 31H, Creatinine 2.61H, Estimat Glomerular Filtration Rate 24, BUN/Creatinine Ratio 12, Glucose Level 153H, Calcium Level 7.5L, Corrected Calcium 8.5, Total Bilirubin 0.5, Aspartate Amino Transf (AST/SGOT) 61H, Alanine Aminotransferase (ALT/SGPT) 29, Alkaline Phosphatase 63, Total Protein 4.9L, Albumin 2.7L, Procalcitonin 4.00H, Phosphorus Level 4.8H, Magnesium Level 1.6 02/10/22 10:30: Blood Gas Puncture Site NA, Blood Gas Patient Temperature 37.0, Arterial Blood pH 7.20*L, Arterial Blood Partial Pressure CO2 33L, Arterial Blood Partial Pressure O2 85, Arterial Blood HCO3 13*L, Arterial Blood Total CO2 13.7L, Arterial Blood Oxygen Saturation 96, Arterial Blood Base Excess -13.8L, Nickolas Test NA, Blood Gas Ventilator Setting NO, Blood Gas Inspired Oxygen NA 02/10/22 10:51: Glucometer 190H Assessment/Plan Assessment/Plan Assess & Plan/Chief Complaint Assessment/Plan: Hypovolemic shock from recent diarrhea Oliguria maintain with muñoz and continue to monitor closely ISREAL on CKD aggressive IVF 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 100mg IV Q6 hours Presumed PNA- empiric vanc and cefepime started Pulmonary edema on CXR Chronic AF OAC maintained on reduced dose HTN HLP COPD GERD AAA Pancreatic mass managed by Dr Richards- pt has not yet been given results of biopsy CHELSY OG DO 02/11/22 0527: Assessment/Plan Assessment/Plan Assess & Plan/Chief Complaint Assessment/Plan: Hypovolemic shock from recent diarrhea Oliguria maintain with muñoz and monitor closely ISREAL on CKD aggressive IVF 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 I reviewed and verified all information documented by the medical student and made modifications to such information, when appropriate. I personally performed the physical exam and medical decision making. Chelsy Og Feb 11, 2022,05:27 JULIAN PEREZ Feb 10, 2022 11:56 CHELSY OG DO Feb 11, 2022 05:27
--- NOTE | 2022-02-10 12:33 | Consultation-Cardiology ---
HPI-Cardiology Cardiology Consultation: Date of Consultation 02/10/22 Time Seen by a Provider: 09:15 Date of Admission Attending Physician Admitting Physician Admitting Physician: Latisha Dugan DO Attending Physician: Latisha Dugan DO Consulting Physician KAYLENE NINO MD, MA, FACP, FACC, [facility], CCDS Physician requesting consult: Dr Dugan HPI: Chief Complaint: Reason for Card consult: A-fib Mr. Arevalo is a 81 yr old male admitted as a direct admit from [facility]. He reports for the last few days he has had increasing weakness, fatigue, nausea, SOB. He had been having diarrhea, but reports this has resolved. He denies any c/o CP, palpitations, syncope, near syncope or LE swelling. He does wear oxygen at . His primary icu nurse is Dr. Mckenna at [facility]. He reports he is feeling better this morning. Review of Systems-Cardiology Review of Systems Constitutional: No chills; malaise Eyes: No vision change Ears/Nose/Throat: No epistaxis, No recent hearing loss Respiratory: As described under HPI Cardiovascular: As described under HPI Gastrointestinal: As described under HPI Genitourinary: No dysuria, No hematuria Musculoskeletal: no symptoms reported Skin: No rash on exposed areas, No ulcerations on exposed areas Psychiatric/Neurological: anxiety; No seizure, No focal weakness, No syncope Hematologic: No bleeding abnormalities HKI-Jeifvw-Ulerzz Hx Patient Social History Marrital Status: single Employed/Student: retired Smoking Status: Former Smoker Have you traveled recently?: No Alcohol Use?: Yes Pt feels they are or have been: No Past Medical History PMH As described under Assessment. Family Medical History Family Medical History: He reports his father had "heart trouble"; exact details unknown. Allergies and Home Medications Allergies Coded Allergies: Penicillins (Verified Allergy, Unknown, 02/09/22) Patient Home Medication List Home Medication List Reviewed: Yes Albuterol Sulfate (Ventolin Hfa) 90 Mcg Hfa.aer.ad, 1 PUFF INH Q4H PRN for SHORTNESS OF BREATH, (Reported) Entered as Reported by: PAULA CALZADA on 02/10/22 1111 Last Action: Reviewed Alprazolam (Alprazolam) 1 Mg Tablet, 1 MG PO HS, (Reported) Entered as Reported by: PAULA CALZADA on 12/5/22 1111 Last Action: Reviewed Atorvastatin Calcium (Atorvastatin Calcium) 20 Mg Tablet, 20 MG PO HS, (Reported) Entered as Reported by: PAULA CALZADA on 02/10/221110 Last Action: Reviewed Doxepin HCl (Doxepin HCl) 25 Mg Capsule, 25 MG PO HS PRN for SLEEP, (Reported) Entered as Reported by: PAULA CALZADA on 02/10/221110 Last Action: Reviewed Fluticasone Propionate (Flonase Allergy Relief) 50 Mcg/Actuation [place].susp, 1 SPRAY NS DAILY PRN for CONGESTION, (Reported) Entered as Reported by: PAULA CALZADA on 02/10/221110 Last Action: Reviewed Folic Acid (Folic Acid) 1 Mg Tablet, 1 MG PO DAILY, (Reported) Entered as Reported by: PAULA CAZLADA on 02/10/221110 Last Action: Reviewed Furosemide (Furosemide) 20 Mg Tablet, 20 MG PO DAILY PRN for FLUID RETENTION, (Reported) Entered as Reported by: APULA CALZADA on 02/10/221110 Last Action: Reviewed Levothyroxine Sodium (Levothyroxine Sodium) 125 Mcg Tablet, 125 MCG PO DAILY, (Reported) Entered as Reported by: PAULA CALZADA on 02/10/221110 Last Action: Reviewed Metoprolol Succinate (Metoprolol Succinate) 50 Mg Tab.er.24h, 25 MG PO BID, (Reported) Entered as Reported by: PAULA CALZADA on 02/10/221110 Last Action: Reviewed Pantoprazole Sodium (Pantoprazole Sodium) 40 Mg Tablet.dr, 40 MG PO DAILY, (Reported) Entered as Reported by: PAULA CALZADA on 02/10/221110 Last Action: Reviewed Prednisone (Prednisone) 10 Mg Tab, 10 MG PO DAILY, (Reported) Entered as Reported by: PAULA CALZADA on 02/10/221110 Last Action: Reviewed Discontinued Medications Apixaban (Eliquis) 2.5 Mg Tablet, 2.5 MG PO BID, (Reported) Discontinued Reason: No Longer Taking Entered as Reported by: PAULA CALZADA on 02/10/221110 Last Action: Discontinued Physical Exam-Cardiology Physical Exam Vital Signs/I&O 02/10/22 02/10/22 02/10/22 02/10/22 00:32 01:00 01:00 01:29 Temp 36.6 36.6 Pulse 120 118 121 Resp 16 B/P (MAP) 128/63 (84) Pulse Ox 97 98 O2 Delivery Nasal Cannula O2 Flow Rate 3.00 02/10/22 02/10/22 02/10/22 02/10/22 02:00 02:43 03:00 04:00 Pulse 108 106 107 Resp 19 18 18 B/P (MAP) 120/50 (73) 113/61 (78) 122/58 (79) Pulse Ox 99 98 98 97 O2 Delivery Nasal Cannula Nasal Cannula Nasal Cannula Nasal Cannula O2 Flow Rate 3.00 2.00 3.00 3.00 02/10/22 02/10/22 02/10/22 02/10/22 04:00 05:00 06:00 07:00 Pulse 106 105 109 Resp 17 18 29 B/P (MAP) 123/68 (86) 117/66 (83) 138/76 (96) Pulse Ox 98 97 96 O2 Delivery Nasal Cannula Nasal Cannula Nasal Cannula Nasal Cannula O2 Flow Rate 3.00 3.00 3.00 3.00 02/10/22 02/10/22 02/10/22 02/10/22 07:19 07:54 08:00 08:00 Temp 36.8 Pulse 120 114 Resp 27 B/P (MAP) 104/92 (96) Pulse Ox 98 95 O2 Delivery Nasal Cannula Nasal Cannula O2 Flow Rate 3.00 3.00 02/10/22 02/10/22 02/10/22 02/10/22 08:00 09:00 10:00 11:27 Pulse 111 126 Resp 27 38 B/P (MAP) 133/67 (89) 120/106 (111) Pulse Ox 96 93 O2 Delivery Nasal Cannula Nasal Cannula Nasal Cannula Nasal Cannula O2 Flow Rate 3.00 3.00 3.00 3.00 02/10/22 00:00 Intake Total 200 ml Output Total 200 ml Balance 0 ml Capillary Refill : Constitutional: AAO x 3, well-developed, well-nourished HEENT: PERRL, hearing is well preserved, oral hygience is good Neck: No carotid bruit; carotid pulses are 2 + bilaterally Respiratory: No accessory muscle use, No respiratory distress; chest expansion is symmetric, chest is bilaterally symmetric, rhonchi (scattered), other (diminished throughout) Cardiovascular: irregularly irregular; No JVD; S1 and S2, systolic murmur Gastrointestinal: No tender; soft, round, audible bowel sounds Extremities: other (mild bilat LE swelling) Neurologic/Psychiatric: grossly intact (moves all extremities) Skin: No rash on exposed areas, No ulcerations on exposed areas; other (friable skin on arms) Data Review Labs Laboratory Tests 02/09/22 21:25: White Blood Count 18.5H, Red Blood Count 3.41L, Hemoglobin 11.1L, Hematocrit 34L , Mean Corpuscular Volume 101H, Mean Corpuscular Hemoglobin 33, Mean Corpuscular Hemoglobin Concent 32, Red Cell Distribution Width 14.0, Platelet Count 240, Me an Platelet Volume 9.1, Immature Granulocyte % (Auto) 1, Neutrophils (%) (Auto) 95H, Lymphocytes (%) (Auto) 1L, Monocytes (%) (Auto) 3, Eosinophils (%) (Auto) 0, Basophils (%) (Auto) 0, Neutrophils # (Auto) 17.6H, Lymphocytes # (Auto) 0.2L , Monocytes # (Auto) 0.5, Eosinophils # (Auto) 0.1, Basophils # (Auto) 0.0, Immature Granulocyte # (Auto) 0.2H, Neutrophils % (Manual) 95, Lymphocytes % (Manual) 3, Monocytes % (Manual) 2, Polychromasia MARKED, Sodium Level 134L, Potassium Level 5.8H, Chloride Level 105, Carbon Dioxide Level 15L, Anion Gap 14, Blood Urea Nitrogen 27H, Creatinine 2.66H, Estimat Glomerular Filtration Rate 24, BUN/Creatinine Ratio 10, Glucose Level 158H, Lactic Acid Level 1.43, Calcium Level 7.7L, Corrected Calcium 8.6, Total Bilirubin 0.7, Aspartate Amino Transf (AST/SGOT) 73H, Alanine Aminotransferase (ALT/SGPT) 32, Alkaline Phosphatase 65, Total Protein 5.0L, Albumin 2.9L, Procalcitonin 4.04H, Thyroid Stimulating Hormone (TSH) 0.00L, Free Thyroxine 1.02 02/09/22 22:10: Blood Gas Puncture Site LEFT RADIAL, Blood Gas Patient Temperature 35.9, Arterial Blood pH 7.20*L, Arterial Blood Partial Pressure CO2 47H, Arterial Blood Partial Pressure O2 32*L, Arterial Blood HCO3 18L, Arterial Blood Total CO2 19.4L, Arterial Blood Oxygen Saturation 54L, Arterial Blood Base Excess - 9.0L, Nickolas Test YES-POS, Blood Gas Ventilator Setting NO, Blood Gas Inspired Oxygen NA 02/09/22 23:27: Glucometer 160H 02/10/22 05:27: White Blood Count 18.7H, Red Blood Count 3.36L, Hemoglobin 10.4L, Hematocrit 33L , Mean Corpuscular Volume 98, Mean Corpuscular Hemoglobin 31, Mean Corpuscular Hemoglobin Concent 32, Red Cell Distribution Width 13.8, Platelet Count 252, Mean Platelet Volume 9.4, Immature Granulocyte % (Auto) 1, Neutrophils (%) (Auto) 95H, Lymphocytes (%) (Auto) 1L, Monocytes (%) (Auto) 3, Eosinophils (%) (Auto) 0, Basophils (%) (Auto) 0, Neutrophils # (Auto) 17.8H, Lymphocytes # (Auto) 0.2L, Monocytes # (Auto) 0.5, Eosinophils # (Auto) 0.0, Basophils # (Auto) 0.0, Immature Granulocyte # (Auto) 0.2H, Sodium Level 134L, Potassium Level 5.4H, Chloride Level 107, Carbon Dioxide Level 15L, Anion Gap 12, Blood Urea Nitrogen 31H, Creatinine 2.61H, Estimat Glomerular Filtration Rate 24, BUN/Creatinine Ratio 12, Glucose Level 153H, Calcium Level 7.5L, Corrected Calcium 8.5, Total Bilirubin 0.5, Aspartate Amino Transf (AST/SGOT) 61H, Alanine Aminotransferase (ALT/SGPT) 29, Alkaline Phosphatase 63, Total Protein 4.9L, Albumin 2.7L, Procalcitonin 4.00H, Phosphorus Level 4.8H, Magnesium Level 1.6 02/10/22 10:30: Blood Gas Puncture Site NA, Blood Gas Patient Temperature 37.0, Arterial Blood pH 7.20*L, Arterial Blood Partial Pressure CO2 33L, Arterial Blood Partial Pressure O2 85, Arterial Blood HCO3 13*L, Arterial Blood Total CO2 13.7L, A rterial Blood Oxygen Saturation 96, Arterial Blood Base Excess -13.8L, Nickolas Test NA, Blood Gas Ventilator Setting NO, Blood Gas Inspired Oxygen NA 02/10/22 10:51: Glucometer 190H A/P-Cardiology Assessment/Admission Diagnosis Progressive weakness Diarrhea Acute on chronic exacerbation of COPD - management per medical/eICU services Acute on chronic renal disease - reports follows with nephrology at [facility] in [place], [place] Chronic a-fib - BB for rate control - OAC with Eliquis (low dose d/t renal dz) H/O AAA repair approx 8 yrs ago - reports h/o re-do AAA repair with endo-graft x 2 approx 2 months ago in [facility] H/O pituitary tumor (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 Mckenna at [facility] Further recs will be based on his hospital course We would like to thank Medical services for this consult KAYLENE NINO MD FACP FACC CCDS Feb 10, 2022 12:33
--- NOTE | 2022-02-10 13:14 | Tele-ICU Progress Note ---
Subjective Date Seen by a Provider: Feb 10, 2022 Time Seen by a Provider: 13:13 Subjective/Events-last exam He is a 81-year-old male with past medical history of COPD per home home oxygen was prescribed and he is not apparently using it. He presented yesterday to the hospital with weakness and diarrhea and found to be in hypovolemic shock with acute and chronic renal failure. He is a fluid resuscitated and for a short time he was placed on a Levophed. A central line also was placed. Today repeat blood gases revealed worsening metabolic acidosis despite fluid resuscitation. I am concerned about any abdominal process going on. Apparently has a hypopituitarism and he was on thyroid and a prednisone. Currently he is receiving hydrocortisone. At rest his breathing is fair but he gets winded with minimal exertion. Also patient has a history of fall atrial fibrillation for which he is receiving Eliquis. Impression 1. Diarrhea with dehydration 2. Acute and chronic renal failure 3. Severe metabolic acidosis the etiology not clear. The acidosis is out of proportion to his creatinine. Underlying acute abdomen cannot be ruled out. 4. COPD with chronic hypoxia on home oxygen 5. Chronic atrial fibrillation not on Eliquis. Recommendations 1. We will change IV fluids to bicarbonate drip and 100 mEq of sodium bicarbonate IV push will be given 2. We will get a CT of the abdomen and pelvis to rule out any acute abdominal process 3. Continue antibiotics per primary care team 4. We will repeat BMP and ABG also lactic acid. I have reviewed my thoughts with the DENTAL EQUIPMENT MECHANIC Julianna. Sepsis Event Evaluation Height, Weight, BMI Height: '" Weight: lbs. oz. kg; 28.43 BMI Method: Focused Exam Lactate Level 02/09/22 21:25: Lactic Acid Level 1.43 Exam Exam Patient acknowledged, consented, and participated in this virtual visit which was conducted using real time audio/video Vital Signs Date Time Temp Pulse Resp B/P (MAP) Pulse Ox O2 Delivery O2 Flow Rate FiO2 02/10/22 12:48 108 02/10/22 12:00 111 35 120/73 (89) 97 Nasal Cannula 3.00 02/10/22 11:27 Nasal Cannula 3.00 02/10/22 11:00 113 18 136/94 (108) 94 Nasal Cannula 3.00 02/10/22 10:00 126 38 120/106 (111) 93 Nasal Cannula 3.00 02/10/22 09:00 111 27 133/67 (89) 96 Nasal Cannula 3.00 02/10/22 08:00 Nasal Cannula 3.00 02/10/22 08:00 114 27 104/92 (96) 95 Nasal Cannula 3.00 02/10/22 08:00 36.8 02/10/22 07:54 98 Nasal Cannula 3.00 02/10/22 07:19 120 02/10/22 07:00 109 29 138/76 (96) 96 Nasal Cannula 3.00 02/10/22 06:00 105 18 117/66 (83) 97 Nasal Cannula 3.00 02/10/22 05:00 106 17 123/68 (86) 98 Nasal Cannula 3.00 02/10/22 04:00 Nasal Cannula 3.00 02/10/22 04:00 107 18 122/58 (79) 97 Nasal Cannula 3.00 02/10/22 03:00 106 18 113/61 (78) 98 Nasal Cannula 3.00 02/10/22 02:43 98 Nasal Cannula 2.00 02/10/22 02:00 108 19 120/50 (73) 99 Nasal Cannula 3.00 02/10/22 01:29 36.6 121 98 02/10/22 01:00 118 02/10/22 01:00 120 16 128/63 (84) 97 Nasal Cannula 3.00 02/10/22 00:32 36.6 02/10/22 00:00 Nasal Cannula 3.00 02/10/22 00:00 121 17 122/62 (82) 98 Nasal Cannula 3.00 02/09/22 23:00 121 22 130/55 (80) 97 Nasal Cannula 3.00 02/09/22 22:00 121 26 91/63 (72) 97 Nasal Cannula 3.00 02/09/22 20:45 120 29 113/66 (82) 99 Nasal Cannula 3.00 02/09/22 20:15 124 25 124/74 (91) 97 Nasal Cannula 3.00 02/09/22 20:00 Nasal Cannula 3.00 02/09/22 19:45 128 30 97 Nasal Cannula 3.00 02/09/22 19:30 126 30 128/59 (82) 95 Nasal Cannula 3.00 02/09/22 19:15 126 32 121/68 (85) 95 Nasal Cannula 3.00 02/09/22 19:01 125 02/09/22 19:00 124 18 132/77 (95) 98 Nasal Cannula 3.00 02/09/22 18:00 Nasal Cannula 3.00 I & O 02/10/22 07:00 Intake Total 450 ml Output Total 300 ml Balance 150 ml Height & Weight Height: '" Weight: lbs. oz. kg; 28.43 BMI Method: General Appearance: WD/WN, Anxious, Chronically ill, Moderate Distress HEENT: PERRL/EOMI, Normal ENT Inspection, Pharynx Normal, Other (dry MM) Neck: Full Range of Motion, Normal Inspection, Non Tender, Supple, Carotid Bruit Respiratory: Chest Non Tender, Lungs Clear, No Accessory Muscle Use, No Respiratory Distress, Decreased Breath Sounds Cardiovascular: No Edema, No Gallop, No JVD, No Murmur, Normal Peripheral Pulses, Irregularly Irregular, Tachycardia Extremity: Normal Capillary Refill, Normal Inspection, Normal Range of Motion, Non Tender, No Calf Tenderness, No Pedal Edema Neurologic/Psychiatric: Alert, Oriented x3, lighting equipment operator II-XII Norm as Tested, Depressed Affect, Motor Weakness Skin: Normal Color, Warm/Dry Lymphatic: No Adenopathy Results Lab Laboratory Tests 02/09/22 21:25 02/10/22 05:27 Assessment/Plan Assessment/Plan as above Critical Care: Critically Ill Patient Time spent with patient (mins): 20 CLAIRE BROWNE MD Feb 10, 2022 13:14
--- NOTE | 2022-02-10 13:23 | Physical Therapy Evaluation ---
PT Evaluation-General Medical Diagnosis Admission Date Feb 09, 2022 at 17:40 Medical Diagnosis: Hypovolemic Shock Onset Date: Feb 09, 2022 Therapy Diagnosis Therapy Diagnosis: Impaired Mobility, Weakness Precautions Precautions/Isolations: Fall Prevention, Standard Precautions Weight Bear Status Right Lower Extremity: Right Full Weight Bearing Left Lower Extremity: Left Full Weight Bearing Referral Physician: Ritchie Reason for Referral: Evaluation/Treatment Medical History Pertinent Medical History: Atrial Fib, CAD, COPD, HTN, PVD Additional Medical History pancreatic mass Current History Patient came from home by EMS with Hypovolemic shock Reviewed History: Yes Social History Home: Multilevel Current Living Status: Alone Entry Into Home: Stairs With Railing PT Steps Into Home: 5 Prior Prior Level of Function SCALE: Activities may be completed with or without assistive devices. 8-Ijvhjrreom-cspgopy completes the activity by him/herself with no assistance from a helper. 5-Set-up or Clean-up Assistance-helper sets up or cleans up; patient completes activity. [place] assists only prior to or following the activity. 4-Supervision or Touching Assistance-helper provides verbal cues and/or touching/steadying and/or contact guard assistance as patient completes act ivity. Assistance may be provided throughout the activity or intermittently. 3-Partial/Moderate Assistance-helper does LESS THAN HALF the effort. [place] lifts, holds or supports trunk or limbs, but provides less than half the effort. 2-Substantial/Maximal Assistance-helper does MORE THAN HALF the effort. [place] lifts or holds trunk or limbs and provides more than half the effort. 8-Onuihlzru-mibxvm does ALL the effort. Patient does none of the effort to complete the activity. Or, the assistance of 2 or more helpers is required for the patient to complete the activity. If activity was not attempted, code reason: 7-Patient Refused. 9-Not Applicable-not attempted and the patient did not perform the activity before the current illness, exacerbation or injury. 10-Not Attempted due to Environmental Limitations-(lack of equipment, weather restraints, etc.). 88-Not Attempted due to Medical Conditions or Safety Concerns. Bed Mobility: 6 Transfers (B,C,W/C): 6 Gait: 6 Stairs: 6 Indoor Mobility (Ambulation): Independent Stairs: Independent Prior Devices Use: Walker, Other-see list below Prior Device Use: cane Per patient report, he has required assistance over the past month PT Evaluation-Current Subjective Patient in bed pre-tx, reports no pain, agrees to PT. Objective Patient Orientation: Person, Place, Situation Attachments: Oxygen, Gibson Catheter, IV ROM/Strength ROM Lower Extremities BLE WNL Strength Lower Extremities BLE grossly 4/5 Integumentary/Posture Bladder Incontinence: Yes Neuromuscular (Tone, Coordination, Reflexes) coordination intact Sensory Hearing: Functional Sensation Right Lower Extremit: Intact Sensation Left Lower Extremity: Intact Transfers Roll Left to Right (QC): 3 Lying to Sitting/Side of Bed(Q: 3 Sit to Stand (QC): 3 Chair/Ppb-cz-Rtkox Xfer(QC): 3 Min A with transfers and bed mobility Gait Does the Patient Walk?: Yes Mode of Locomotion: Walk Anticipated Mode of Locomotion: Walk Walk 10 feet (QC): 4 Distance: 10' Gait Assistive Device: FWW Comments/Gait Description Patient CGA with ambulation, has body shakes which make him a little unsteady. Reports dizziness with positional movements. Balance Sitting Static: Normal Sitting Dynamic: Normal Standing Static: Fair Standing Dynamic: Fair Treatment Transfer from bed to recliner, shown exercises (AP, LAQ, Hip Flexion) Assessment/Needs Patient had dizziness lying<->sitting and sit<->stand that goes away after a while. Patient required [place] to stand up, and is a bit unsteady walking. Patient in recliner post-tx with nurse call, phone, tray, all needs met. Rehab Potential: Fair PT Mcfp Goals Mcfp Goals PT Supervisor Filling And Packing Goals Time Frame: Feb 17, 2022 Roll Left & Right (QC): 6 Sit to Lying (QC): 6 Lying-Sitting on Side/Bed(QC): 6 Sit to Stand (QC): 6 Chair/Bpa-hr-Kwoaf Xfer(QC): 6 Toilet Transfer (QC): 6 Walk 10 feet (QC): 6 Walk 50ft with 2 Turns (QC): 6 Walk 150 ft (QC): 4 (SBA) PT Plan Problem List Problem List: Activity Tolerance, Functional Strength, Safety, Balance, Gait, Transfer, Bed Mobility, ROM Treatment/Plan Treatment Plan: Continue Plan of Care Treatment Plan: Bed Mobility, Education, Functional Activity Eliel, Functional Strength, Gait, Safety, Therapeutic Exercise, Transfers Treatment Duration: Feb 17, 2022 Frequency: 6 times per week Estimated Hrs Per Day: .25 hour per day Patient and/or Family Agrees t: Yes Safety Risks/Education Patient Education: Transfer Techniques, Correct Positioning, Safety Issues Teaching Recipient: Patient Teaching Methods: Demonstration, Discussion Response to Teaching: Reinforcement Needed Discharge Recommendations Therapy Discharge Recommendati: Scheduled Assistance, Home & Family Time Time In: 1256 Time Out: 1311 DATE: Feb 10, 2022 Total Billed Treatment Time: 15 Total Billed Treatment 1 visit EVM 15' JYOTSNA LABOY PT Feb 10, 2022 13:23
--- NOTE | 2022-02-10 13:24 | Occupational Therapy Eval ---
OT Evaluation-General/PLF Medical Diagnosis Admission Date Feb 09, 2022 at 17:40 Medical Diagnosis: hypovolemic shock Onset Date: Feb 09, 2022 Therapy Diagnosis Therapy Diagnosis: reduced adl status Precautions Precautions/Isolations: Fall Prevention, Standard Precautions Referral Referral Reason: Evaluation/Treatment Medical History Pertinent Medical History: Atrial Fib, CAD, COPD, HTN Current History Pt presented to hospital with weakness and inability to walk. Found to have hypovolemic shock. Per patient, he lives alone in a multilevel home. He has moved his bedroom to the main level and hasn't used the upstairs since September. Pt reports he was indep with adls and iadls prior to admission. Reviewed History: Yes Social History Home: Multilevel (all needs met on main level ) Current Living Status: Alone Steps Into Home: 5 ADL-Prior Level of Function SCALE: Activities may be completed with or without assistive devices. 5-Ecndoircdv-kmwlxtn completes the activity by him/herself with no assistance from a helper. 5-Set-up or Clean-up Assistance-helper sets up or cleans up; patient completes activity. [place] assists only prior to or following the activity. 4-Supervision or Touching Assistance-helper provides verbal cues and/or touching/steadying and/or contact guard assistance as patient completes activity. Assistance may be provided throughout the activity or intermittently. 3-Partial/Moderate Assistance-helper does LESS THAN HALF the effort. [place] lifts, holds or supports trunk or limbs, but provides less than half the effort. 2-Substantial/Maximal Assistance-helper does MORE THAN HALF the effort. [place] lifts or holds trunk or limbs and provides more than half the effort. 7-[place]-mjdkut does ALL the effort. Patient does none of the effort to complete the activity. Or, the assistance of 2 or more helpers is required for the patient to complete the activity. If activity was not attempted, code reason: 7-Patient Refused. 9-Not Applicable-not attempted and the patient did not perform the activity before the current illness, exacerbation or injury. 10-Not Attempted due to Environmental Limitations-(lack of equipment, weather restraints, etc.). 88-Not Attempted due to Medical Conditions or Safety Concerns. Self Care: Independent Functional Cognition: Independent DME/Equipment: Bath Chair, Shower OT Current Status Subjective Pt reports weakness and fatigue but agreeable to evaluation. Appearance Pt left sitting in recliner, all needs within reach at OT departure. Mental Status/Objective Patient Orientation: Person, Place, Situation Attachments: Muñoz Catheter, IV, Oxygen, SCD's, Telemetry Current Glasses/Contacts: Yes Hand Dominance: Right Upper Extremity ROM R shoulder: ~160 degrees L shoulder: ~140 degrees bilateral elbows-WFL Slight limitation in hand/wrist secondary to edema ADL-Treatment Lower Body Dressing (QC): 2 On/Off Footwear (QC): 1 Toileting Hygiene (QC): 1 (muñoz cathter) Supine>sit: Min-mod a to elevate torso. Pt unable to reach feet to doff socks. At this time, he would be dependent to wash body from calf down. Anticipate assistance needed to thread feet into clothing. Mod a to stand as pt required lifting boost. Once standing, CGA-min a needed. Pt is unsteady on feet, BLE's slightly trembling. He ambulated short distance to chair with min a and use of walker. Pt only able to tolerate minimal activity at this time. Education OT Patient Education: Correct positioning, Purpose of tx/functional activities, Rehab process, Safety issues, Transfer techniques Teaching Recipient: Patient Teaching Methods: Demonstration, Discussion Response to Teaching: Verbalize Understanding, Return Demonstration, Reinforcement Needed OT Penitentiary Goals Penitentiary Goals Time Frame: Feb 24, 2022 Oral Hygiene (QC): 5 Toileting Hygiene (QC): 4 Shower/Bathe Self (QC): 4 Upper Body Dressing (QC): 4 Lower Body Dressing (QC): 4 On/Off Footwear (QC): 4 Additional Goals: 1-Demonstrate ADL Tasks, 2-Verbalize Understanding, 3- ImproveStrength/Eliel 1=Demonstrate adherence to instructed precautions during ADL tasks. 2=Patient will verbalize/demonstrate understanding of assistive devices/modifications for ADL. 3=Patient will improve strength/tolerance for activity to enable patient to perform ADL's. OT Education/Plan Problem List/Assessment Assessment: Decreased Activ Tolerance, Decreased Safety Aware, Decreased UE Strength, Edema, Impaired Bed Mobility, Impaired Funct Balance, Impaired I ADL's, Impaired Self-Care Skills, Restricted Funct UE ROM Discharge Recommendations Plan/Recommendations: Continue POC Therapy Discharge Recommendati: Post Acute OT Treatment Plan/Plan of Care Treatment,Training & Education: Yes Patient would benefit from OT for education, treatment and training to promote independence in ADL's, mobility, safety and/or upper extremity function for ADL's. Plan of Care: ADL Retraining, Functional Mobility, Group Exercise/Act as Ind, UE Funct Exercise/Act Treatment Duration: Feb 24, 2022 Frequency: 3 times per week (3-5x/week ) Estimated Hrs Per Day: .25 hour per day Rehab Potential: Fair Time Start Time: 12:59 Stop Time: 13:13 DATE: Feb 10, 2022 Total Time Billed (hr/min): 14 Billed Treatment Time 1 visit Lizzie Bhardwaj OT Feb 10, 2022 13:24
[2022-02-10] MEDS ORDERED: SODIUM BICARB 8.4% 50 MEQ/50 ML (ABBOTT) SYR IV NR (13:30)
--- NOTE | 2022-02-10 13:54 | Diagnostic Imaging Report ---
PROCEDURE: CT abdomen and pelvis without contrast. TECHNIQUE: Multiple contiguous axial images were obtained through the abdomen and pelvis without the use of intravenous contrast. Auto Exposure Controls were utilized during the CT exam to meet ALARA standards for radiation dose reduction. INDICATION: Abdominal pain with metabolic acidosis, weakness and diarrhea. No prior studies are available for comparison. FINDINGS: Imaging through lung bases does show some areas of parenchymal consolidation in the lower lobes bilaterally. There is some trace pleural fluid bilaterally as well. The liver and gallbladder are unremarkable. There is no biliary ductal dilatation. Pancreas contains punctate calcifications likely from prior pancreatitis. The spleen is unremarkable. No adrenal mass is identified. Renal vascular calcifications are noted. No definite calculi or hydronephrosis is seen. There is an abdominal aortic aneurysm treated with an aortic stent graft. Excluded aneurysm sac dimensions are 5.2 cm AP by 6.3 cm transverse. No definite evidence of leakage or rupture is identified. Small and large bowel loops are normal caliber. There is no evidence of obstruction. There is occasional diverticula within the sigmoid colon. No free fluid or fluid collection is seen. The bladder is decompressed by Gibson catheter. There is moderate amount of gas within the bladder. Bony structures are unremarkable apart from a superior endplate compression involving T12 vertebral body, age indeterminate. IMPRESSION: 1. Bibasilar consolidation with trace bilateral pleural effusions. 2. Treated abdominal aortic aneurysm. No definite evidence of leakage or rupture is seen. 3. Uncomplicated diverticulosis. 4. Age-indeterminate superior endplate fracture T12 vertebral body. Dictated by: Dictated on workstation # [id number]
[2022-02-10] MEDS: SODIUM BICARBONATE 8.4% SYR 150 MEQ in D5W 1000 ML IV SOLUTION 1,000 ML IV SCH ×2 (14:02→23:32)
[2022-02-10 16:00] LABS: POTASSIUM 4.6 MMOL/L (3.6-5.0)
[2022-02-10 16:01] LABS: CALCIUM 7.3 MG/DL (8.5-10.1)
[2022-02-10 16:05] LABS: CREATININE SERUM 2.66 MG/DL (0.60-1.30)
[2022-02-10 23:24] LABS: POTASSIUM 3.8 MMOL/L (3.6-5.0)
[2022-02-10 23:25] LABS: CALCIUM 6.9 MG/DL (8.5-10.1)
[2022-02-10 23:29] LABS: CREATININE SERUM 2.59 MG/DL (0.60-1.30)
[2022-02-11] MEDS: inSUlin ASPART (NovoLOG) 1 UNIT/0.01 ML (CHARGE PER UNIT) SC SCH ×4 (01:15→20:46)
[2022-02-11] MEDS: RT-ALBUTEROL/IPRATROPIUM 3 ML (DUONEB) VIAL INH SCH ×4 (03:45→21:34)
[2022-02-11 04:02] LABS: BASOPHILS % (AUTO) 0 % (0-10); EOSINOPHILS % (AUTO) 0 % (0-10); HEMATOCRIT 26 % (40-54); HEMOGLOBIN 8.4 g/dL (13.3-17.7); LYMPHOCYTES # (AUTO) 0.1 10^3/uL (1.0-4.0); LYMPHOCYTES % (AUTO) 0 % (12-44); MEAN CORPUSCULAR HEMOGLOBIN 31 pg (25-34); MEAN CORPUSCULAR HGB CONC 33 g/dL (32-36); MEAN CORPUSCULAR VOLUME 96 fL (80-99); MEAN PLATELET VOLUME 9.6 fL (9.0-12.2); MONOCYTES # (AUTO) 0.6 10^3/uL (0.0-1.0); MONOCYTES % (AUTO) 5 % (0-12); NEUTROPHILS # (AUTO) 12.9 10^3/uL (1.8-7.8); NEUTROPHILS % (AUTO) 94 % (42-75); PLATELET COUNT 184 10^3/uL (130-400); WHITE BLOOD COUNT 13.7 10^3/uL (4.3-11.0)
[2022-02-11 04:11] LABS: ABG BASE EXCESS -1.1 MMOL/L (-2.5-2.5); ABG OXYGEN SATURATION 97 % (94-100); ABG PCO2 36 MMHG (35-45); ABG PH 7.41 (7.37-7.43); ABG PO2 80 MMHG (79-93); ALLENS TEST YES-POS
[2022-02-11 04:12] LABS: INSPIRED O2 2L; PATIENT TEMP 37; VENTILATOR NO
[2022-02-11 04:14] LABS: ALBUMIN 2.5 GM/DL (3.2-4.5); POTASSIUM 3.8 MMOL/L (3.6-5.0)
[2022-02-11 04:15] LABS: CALCIUM 6.8 MG/DL (8.5-10.1)
[2022-02-11 04:17] LABS: TOTAL PROTEIN 4.5 GM/DL (6.4-8.2)
[2022-02-11 04:18] LABS: BILIRUBIN,TOTAL 0.3 MG/DL (0.1-1.0)
[2022-02-11 04:20] LABS: CREATININE SERUM 2.44 MG/DL (0.60-1.30); PHOSPHORUS 2.9 MG/DL (2.3-4.7)
[2022-02-11 04:23] LABS: MAGNESIUM 1.9 MG/DL (1.6-2.4)
[2022-02-11] MEDS: HYDROCORTISONE 100 MG/2 ML (Solu-CORTEF) VIAL IV SCH ×4 (06:34→23:46)
[2022-02-11] MEDS: POTASSIUM CL 10MEQ/50ML IVPB 50 ML IV SCH (06:42)
[2022-02-11] MEDS: KCL 20 MEQ TAB (K-DUR) PO SCH (06:42)
[2022-02-11] MEDS: NOREPINEPHRINE 8 MG/250 ML 250 ML IV SCH (06:43)
[2022-02-11] MEDS: DOCUSATE SODIUM 100 MG (COLACE) CAP PO SCH ×2 (07:48→20:40)
[2022-02-11] MEDS: SENNOSIDES 8.6 MG (SENOKOT) TAB PO SCH ×2 (07:49→20:40)
--- NOTE | 2022-02-11 08:45 | Physical Therapy Daily Note ---
PT Daily Note-Current Subjective Patient in bed pre-tx, reports no pain but has some fluid retention in BLE, agrees to PT. Pain Section J - Health Conditions 1. Rarely or not at all 2. Occasionally 3. Frequently 4. Almost constantly 8. Unable to answer Pain Effect on Sleep: 1 Pain Interference with Therapy: 1 Pain Interference w/Day-to-Day: 1 Appearance Patient in recliner post-tx with nurse call, phone, tray, all needs met. Mental Status Patient Orientation: Person, Place, Situation Attachments: Gibson Catheter, IV Transfers SCALE: Activities may be completed with or without assistive devices. 1-Yndrylzfvk-tzbfcru completes the activity by him/herself with no assistance from a helper. 5-Set-up or Clean-up Assistance-helper sets up or cleans up; patient completes activity. [place] assists only prior to or following the activity. 4-Supervision or Touching Assistance-helper provides verbal cues and/or to uching/steadying and/or contact guard assistance as patient completes activity. Assistance may be provided throughout the activity or intermittently. 3-Partial/Moderate Assistance-helper does LESS THAN HALF the effort. [place] lifts, holds or supports trunk or limbs, but provides less than half the effort. 2-Substantial/Maximal Assistance-helper does MORE THAN HALF the effort. [place] lifts or holds trunk or limbs and provides more than half the effort. 3-Wshkkdgdd-wpkjbk does ALL the effort. Patient does none of the effort to complete the activity. Or, the assistance of 2 or more helpers is required for the patient to complete the activity. If activity was not attempted, code reason: 7-Patient Refused. 9-Not Applicable-not attempted and the patient did not perform the activity before the current illness, exacerbation or injury. 10-Not Attempted due to Environmental Limitations-(lack of equipment, weather restraints, etc.). 88-Not Attempted due to Medical Conditions or Safety Concerns. Roll Left & Right (QC): 4 (SBA) Lying to Sitting/Side of Bed(Q: 3 (Min A) Sit to Stand (QC): 4 (CGA) Chair/Aom-rd-Ifwnr Xfer(QC): 4 (CGA) Weight Bearing Right Lower Extremity: Right Full Weight Bearing Left Lower Extremity: Left Full Weight Bearing Gait Training Does the Patient Walk?: Yes Distance: 10' Walk 10 feet (QC): 4 (CGA) Gait Assistive Device: FWW Patient more steady today, less shaky, and did not have dizziness when sitting at EOB or standing up. CGA Exercises Seated Therapy Exercises: Ankle pumps, Long arc quads, Hip flexion, Hip abd/add (manual resistance) Seated Reps: 20 Treatments Ambulation, LE Strengthening Assessment Current Status: Fair Progress Patient still weak, but demonstrated increased strength and energy today. Patient should be able to be walked more tomorrow as he did not have dizziness episodes today during treatment. PT [employer] Wireless Manager Goals [employer] Manager Goals PT [facility] Goals Time Frame: Feb 17, 2022 Roll Left & Right (QC): 6 Sit to Lying (QC): 6 Lying-Sitting on Side/Bed(QC): 6 Sit to Stand (QC): 6 Chair/Iai-vn-Tbhac Xfer(QC): 6 Toilet Transfer (QC): 6 Walk 10 feet (QC): 6 Walk 50ft with 2 Turns (QC): 6 Walk 150 ft (QC): 4 (SBA) PT Plan Problem List Problem List: Activity Tolerance, Functional Strength, Safety, Balance, Gait, Transfer, Bed Mobility, ROM Treatment/Plan Treatment Plan: Continue Plan of Care Treatment Plan: Bed Mobility, Education, Functional Activity Eliel, Functional Strength, Gait, Safety, Therapeutic Exercise, Transfers Treatment Duration: Feb 17, 2022 Frequency: 6 times per week Estimated Hrs Per Day: .25 hour per day Patient and/or Family Agrees t: Yes Safety Risks/Education Patient Education: Gait Training, Transfer Techniques, Correct Positioning, Safety Issues Teaching Recipient: Patient Teaching Methods: Demonstration, Discussion Response to Teaching: Reinforcement Needed Time Time In: 915 Time Out: 830 DATE: Feb 11, 2022 Total Billed Treatment Time: 15 Total Billed Treatment 1 visit FA ORION VIVEROS PT Feb 11, 2022 08:45
--- NOTE | 2022-02-11 08:55 | Diagnostic Imaging Report ---
INDICATION: Shock, dyspnea Frontal chest obtained at 0328 a.m. Compared to 02/10/2022 Heart is mildly enlarged. There is mild central vascular congestion with some minimal infiltrate in the right medial base. There is no pneumothorax or pleural fluid. Central venous catheter is unchanged. IMPRESSION: Mild cardiomegaly. There is minimal infiltrate in the right medial base versus atelectasis, stable compared to the prior study. There is no new abnormality. Dictated by: Dictated on workstation # [id number]
[2022-02-11] MEDS: PANTOPRAZOLE 40 MG (PROTONIX) VIAL IV SCH (09:14)
[2022-02-11] MEDS: APIXABAN 2.5 MG (ELIQUIS) TABLET PO SCH ×2 (09:14→20:46)
[2022-02-11] MEDS: SODIUM BICARBONATE 8.4% SYR 150 MEQ in D5W 1000 ML IV SOLUTION 1,000 ML IV SCH ×2 (09:14→21:54)
--- NOTE | 2022-02-11 09:21 | Occupational Ther Daily Note ---
OT Current Status-Daily Note Subjective Pt in recliner, alert. Breakfast tray arrived. Agrees to therapy. No pain at this time. Pt expresses being eager to move to 4th floor. Mental Status/Objective Patient Orientation: Person, Place, Time, Situation Attachments: IV, Oxygen ADL-Treatment Pt breakfast tray arrived at beginning of tx. Pt able to eat with silverware and bring food to mouth. Required assist to open containers due to weakness. Pt in recliner post tx with phone/call light in reach. All needs met. Therapy Code Descriptions/Definitions Functional [place] Measure: 0=Not Assessed/NA 4=Minimal Assistance 1=Total Assistance 5=Supervision or Setup 2=Maximal Assistance 6=Modified [place] 3=Moderate Assistance 7=Complete IndependenceSCALE: Activities may be completed with or without assistive devices. 7-Oimjwczjfk-kziecwv completes the activity by him/herself with no assistance from a helper. 5-Set-up or Clean-up Assistance-helper sets up or cleans up; patient completes activity. [place] assists only prior to or following the activity. 4-Supervision or Touching Assistance-helper provides verbal cues and/or touching/steadying and/or contact guard assistance as patient completes activity. Assistance may be provided throughout the activity or intermittently. 3-Partial/Moderate Assistance-helper does LESS THAN HALF the effort. [place] lifts, holds or supports trunk or limbs, but provides less than half the effort. 2-Substantial/Maximal Assistance-helper does MORE THAN HALF the effort. [place] lifts or holds trunk or limbs and provides more than half the effort. 6-Phbvnehyt-nbrfro does ALL the effort. Patient does none of the effort to complete the activity. Or, the assistance of 2 or more helpers is required for the patient to complete the activity. If activity was not attempted, code reason: 7-Patient Refused. 9-Not Applicable-not attempted and the patient did not perform the activity before the current illness, exacerbation or injury. 10-Not Attempted due to Environmental Limitations-(lack of equipment, weather restraints, etc.). 88-Not Attempted due to Medical Conditions or Safety Concerns. Eating (QC): 5 OT Pathology Secretary/Transcriptionist Goals Halfway Goals Time Frame: Feb 24, 2022 Oral Hygiene (QC): 5 Toileting Hygiene (QC): 4 Shower/Bathe Self (QC): 4 Upper Body Dressing (QC): 4 Lower Body Dressing (QC): 4 On/Off Footwear (QC): 4 Additional Goals: 1-Demonstrate ADL Tasks, 2-Verbalize Understanding, 3- ImproveStrength/Eliel 1=Demonstrate adherence to instructed precautions during ADL tasks. 2=Patient will verbalize/demonstrate understanding of assistive devices/modifications for ADL. 3=Patient will improve strength/tolerance for activity to enable patient to perform ADL's. OT Education/Plan Problem List/Assessment Assessment: Decreased Activ Tolerance, Impaired Self-Care Skills Discharge Recommendations Plan/Recommendations: Continue POC Treatment Plan/Plan of Care Patient would benefit from OT for education, treatment and training to promote independence in ADL's, mobility, safety and/or upper extremity function for ADL's. Plan of Care: ADL Retraining, Functional Mobility, Group Exercise/Act as Ind, UE Funct Exercise/Act Treatment Duration: Feb 24, 2022 Frequency: 3 times per week (3-5x/week ) Estimated Hrs Per Day: .25 hour per day Rehab Potential: Fair Time Start Time: 09:35 Stop Time: 09:45 DATE: Feb 11, 2022 Total Time Billed (hr/min): 10 Billed Treatment Time 1 visit ADL (10 min) ELIAZAR VIEIRA Feb 11, 2022 09:21
--- NOTE | 2022-02-11 09:52 | Progress Note ---
JULIAN PEREZ 02/11/22 0952: Subjective Date Seen by a Provider: Feb 11, 2022 Time Seen by a Provider: 09:30 Subjective/Events-last exam This is a 81yoWM clinic patient of Dr Toussaint who presented to the [facility] 02/09/22 with weakness requiring aggressive IVF and Levophed via central line for a short time along with biPAP which he is no longer on. He does wear oxygen at hs, 2.5L via NC. His primary hearing screener is Dr. Mckenna at [place]. Today he reports feeling overall improved. He has had 4 soft BMs and sufficient urine output from muñoz catheter, over [address] A/P showed bibasilar consolidations with trace b/l pleural effusions. Lactic acid is 4.02. Kidney function is at pt's baseline. Still awaiting biopsy results of pancreatic mass. Review of Systems General: No Chills, No Night Sweats HEENT: No Head Aches, No Visual Changes Pulmonary: Dyspnea (minimal); No Cough Cardiovascular: No: Chest Pain, Palpitations Gastrointestinal: No: Nausea, Vomiting Genitourinary: No Dysuria, No Frequency Musculoskeletal: No: neck pain, shoulder pain Neurological: No: Weakness, Numbness Focused Exam Lactate Level 02/09/22 21:25: Lactic Acid Level 1.43 02/10/22 15:40: Lactic Acid Level 2.92*H 02/11/22 03:45: Lactic Acid Level 4.02*H Objective Exam Last Set of Vital Signs Vital Signs Date Time Temp Pulse Resp B/P (MAP) Pulse Ox O2 Delivery O2 Flow Rate FiO2 02/11/22 09:00 115 30 127/100 (109) 95 Nasal Cannula 2.00 02/11/22 08:00 36.5 Capillary Refill : I&O Intake and Output 02/11/22 00:00 Intake Total 2750 ml Output Total 795 ml Balance 1955 ml Intake Oral 1400 ml IV Total 1350 ml Output Urine Total 795 ml # Bowel Movements 3 General: Alert, Oriented X3, Cooperative, No Acute Distress HEENT: PERRLA, EOMI Neck: Supple, No JVD Lungs: Other (diminished throughout) Heart: Normal S1, Normal S2, Other (irregularly irregular) Abdomen: Normal Bowel Sounds, Soft, No Tenderness Extremities: Normal Pulses Skin: No Significant Lesion Neuro: Normal Speech Psych/Mental Status: Mental Status NL, Mood NL Results Lab Laboratory Tests 02/10/22 10:30: Blood Gas Puncture Site NA, Blood Gas Patient Temperature 37.0, Arterial Blood pH 7.20*L, Arterial Blood Partial Pressure CO2 33L, Arterial Blood Partial Pressure O2 85, Arterial Blood HCO3 13*L, Arterial Blood Total CO2 13.7L, Arterial Blood Oxygen Saturation 96, Arterial Blood Base Excess -13.8L, Nickolas Test NA, Blood Gas Ventilator Setting NO, Blood Gas Inspired Oxygen NA 02/10/22 10:51: Glucometer 190H 02/10/22 15:40: Sodium Level 134L, Potassium Level 4.6, Chloride Level 104, Carbon Dioxide Level 18L, Anion Gap 12, Blood Urea Nitrogen 36H, Creatinine 2.66H, Estimat Glomerular Filtration Rate 24, BUN/Creatinine Ratio 14, Glucose Level 242H, Lactic Acid Level 2.92*H, Calcium Level 7.3L 02/10/22 15:43: Glucometer 228H 02/10/22 20:40: Glucometer 248H 02/10/22 23:00: Sodium Level 134L, Potassium Level 3.8, Chloride Level 102, Carbon Dioxide Level 18L, Anion Gap 14, Blood Urea Nitrogen 40H, Creatinine 2.59H, Estimat Glomerular Filtration Rate 24, BUN/Creatinine Ratio 15, Glucose Level 293H, Calcium Level 6.9L 02/11/22 01:09: Glucometer 299H 02/11/22 03:45: Sodium Level 135, Potassium Level 3.8, Chloride Level 100, Carbon Dioxide Level 21, Anion Gap 14, Blood Urea Nitrogen 41H, Creatinine 2.44H, Estimat Glomerular Filtration Rate 26, BUN/Creatinine Ratio 17, Glucose Level 288H, Calcium Level 6.8L, White Blood Count 13.7H, Red Blood Count 2.69L, Hemoglobin 8.4L, Hematocrit 26L, Mean Corpuscular Volume 96, Mean Corpuscular Hemoglobin 31, Mean Corpuscular Hemoglobin Concent 33, Red Cell Distribution Width 14.1, Platelet Count 184, Mean Platelet Volume 9.6, Immature Granulocyte % (Auto) 1, Neutrophils (%) (Auto) 94H, Lymphocytes (%) (Auto) 0L, Monocytes (%) (Auto) 5, Eosinophils (%) (Auto) 0, Basophils (%) (Auto) 0, Neutrophils # (Auto) 12.9H, Lymphocytes # (Auto) 0.1L, Monocytes # (Auto) 0.6, Eosinophils # (Auto) 0.0, Basophils # (Auto) 0.0, Immature Granulocyte # (Auto) 0.1, Lactic Acid Level 4.02*H, Corrected Calcium 8.0L, Phosphorus Level 2.9, Magnesium Level 1.9, Total Bilirubin 0.3, Aspartate Amino Transf (AST/SGOT) 37H, Alanine Aminotransferase (ALT/SGPT) 23, Alkaline Phosphatase 58, Total Protein 4.5L, Albumin 2.5L 02/11/22 03:50: Blood Gas Puncture Site LEFT RADIAL, Blood Gas Patient Temperature 37, Arterial Blood pH 7.41, Arterial Blood Partial Pressure CO2 36, Arterial Blood Partial Pressure O2 80, Arterial Blood HCO3 23, Arterial Blood Total CO2 24.0, Arterial Blood Oxygen Saturation 97, Arterial Blood Base Excess -1.1, Nickolas Test YES-POS, Blood Gas Ventilator Setting NO, Blood Gas Inspired Oxygen 2L Assessment/Plan Assessment/Plan Assess & Plan/Chief Complaint Assessment/Plan: Hypovolemic shock from recent diarrhea Oliguria maintain with muñoz and continue to monitor closely ISREAL on CKD aggressive IVF 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 100mg IV Q6 hours PNA- empiric vanc and cefepime Pulmonary edema on CXR Chronic AF OAC maintained on reduced dose HTN HLP COPD GERD AAA Pancreatic mass managed by Dr Richards- still no results of biopsy Transfer to 4th floor today given improved status LATISHA OG DO 02/12/22 0541: Assessment/Plan Assessment/Plan Assess & Plan/Chief Complaint Pathology reviewed no cancer on biopsy Supervisory-Addendum Brief Verification & Attestation Participated in pt care: history, MDM, physical Personally performed: exam, history, MDM, supervision of care Care discussed with: Medical Student Procedures: n/a Results interpretation: Verified all documentation Verification and Attestation of Medical Student E/M Service A medical student performed and documented this service in my presence. I reviewed and verified all information documented by the medical student and made modifications to such information, when appropriate. I personally performed the physical exam and medical decision making. Latisha Og Feb 12, 2022,05:41 JULIAN PEREZ Feb 11, 2022 09:52 LATISHA OG DO Feb 12, 2022 05:41
--- NOTE | 2022-02-11 10:39 | Progress Note - Cardiology ---
Cardiology SOAP Progress Note Subjective: Sitting up in recliner at the bedside Feels weakness has improved No c/o CP Feels SOB is unchanged Objective: I&O/Vital Signs 02/11/22 02/11/22 02/11/22 02/11/22 20:00 20:00 20:00 21:00 Temp 36.6 Pulse 121 114 Resp 27 30 B/P (MAP) 145/89 (107) 136/105 (115) Pulse Ox 95 90 96 O2 Delivery Nasal Cannula Nasal Cannula Nasal Cannula O2 Flow Rate 2.00 2.00 2.00 02/11/22 02/11/22 02/11/22 02/11/22 21:35 22:00 23:00 23:59 Pulse 117 120 Resp 18 19 B/P (MAP) 155/80 (105) 154/85 (108) Pulse Ox 96 97 96 96 O2 Delivery Nasal Cannula Nasal Cannula Nasal Cannula Nasal Cannula O2 Flow Rate 2.00 2.00 2.00 2.00 02/12/22 02/12/22 02/12/22 02/12/22 00:00 00:02 01:00 01:00 Temp 36.8 Pulse 113 109 112 Resp 13 21 B/P (MAP) 146/93 (110) 137/74 (95) Pulse Ox 97 95 O2 Delivery Nasal Cannula Nasal Cannula O2 Flow Rate 2.00 2.00 02/12/22 02/12/22 02/12/22 02/12/22 01:09 02:00 03:00 04:00 Pulse 109 102 95 Resp 20 21 B/P (MAP) 137/74 145/77 (99) 142/75 (97) Pulse Ox 96 96 95 O2 Delivery Nasal Cannula Nasal Cannula Nasal Cannula O2 Flow Rate 2.00 2.00 2.00 02/12/22 02/12/22 02/12/22 02/12/22 04:00 05:00 05:26 05:52 Temp 36.9 Pulse 97 97 110 Resp 25 25 B/P (MAP) 142/77 (98) 146/73 (97) Pulse Ox 96 95 O2 Delivery Nasal Cannula Nasal Cannula O2 Flow Rate 2.00 2.00 02/12/22 02/12/22 02/12/22 06:00 07:27 07:28 Temp 36.9 Pulse 135 135 Resp 31 B/P (MAP) 151/80 (103) Pulse Ox 96 96 O2 Delivery Nasal Cannula Nasal Cannula O2 Flow Rate 2.00 1.00 02/12/22 00:00 Intake Total 2050 ml Output Total 650 ml Balance 1400 ml Constitutional: AAO x 3, well-developed, well-nourished Respiratory: No accessory muscle use, No respiratory distress; chest expansion is symmetric, chest is bilaterally symmetric, rhonchi (scattered), other (diminished throughout) Cardiovascular: irregularly irregular; No JVD; S1 and S2, systolic murmur Gastrointestional: No tender; soft, round, audible bowel sounds Extremities: other (mild bilat LE swelling) Neurologic/Psychiatric: grossly intact (moves all extremities) Skin: No rash on exposed areas, No ulcerations on exposed areas; other (friable skin on arms) Results/Procedures: Labs Laboratory Tests 02/11/22 11:33: Glucometer 197H 02/11/22 15:41: Glucometer 205H 02/11/22 16:36: Sodium Level 138, Potassium Level 3.5L, Chloride Level 99, Carbon Dioxide Level 25, Anion Gap 14, Blood Urea Nitrogen 47H, Creatinine 2.19H, Estimat Glomerular Filtration Rate 30, BUN/Creatinine Ratio 21, Glucose Level 207H, Calcium Level 7.2L 02/11/22 20:26: Glucometer 203H 02/12/22 03:32: White Blood Count 6.1, Red Blood Count 4.09L, Hemoglobin 12.5#L, Hematocrit 38L, Mean Corpuscular Volume 93, Mean Corpuscular Hemoglobin 31, Mean Corpuscular Hemoglobin Concent 33, Red Cell Distribution Width 14.2, Platelet Count 114L, Mean Platelet Volume 10.1, Immature Granulocyte % (Auto) 0, Neutrophils (%) (Auto) 94H, Lymphocytes (%) (Auto) 1L, Monocytes (%) (Auto) 5, Eosinophils (%) (Auto) 0, Basophils (%) (Auto) 0, Neutrophils # (Auto) 5.7, Lymphocytes # (Auto) 0.1L, Monocytes # (Auto) 0.3, Eosinophils # (Auto) 0.0, Basophils # (Auto) 0.0, Immature Granulocyte # (Auto) 0.0, Percent Immature Platelet Fraction 2.3, Sodium Level 136, Potassium Level 3.6, Chloride Level 96L, Carbon Dioxide Level 27, Anion Gap 13, Blood Urea Nitrogen 48H, Creatinine 2.08H, Estimat Glomerular Filtration Rate 32, BUN/Creatinine Ratio 23, Glucose Level 196H, Calcium Level 7.0L, Corrected Calcium 8.0L, Phosphorus Level 1.7L, Magnesium Level 1.9, Total Bilirubin 0.2, Aspartate Amino Transf (AST/SGOT) 23, Alanine Aminotransferase (ALT/SGPT) 23, Alkaline Phosphatase 52, Total Protein 4.6L, Albumin 2.7L 02/12/22 03:35: Blood Gas Puncture Site LEFT RADIAL, Blood Gas Patient Temperature 36.9, Ar terial Blood pH 7.47H, Arterial Blood Partial Pressure CO2 42, Arterial Blood Partial Pressure O2 77L, Arterial Blood HCO3 31H, Arterial Blood Total CO2 32.0H , Arterial Blood Oxygen Saturation 97, Arterial Blood Base Excess 6.8H, Nickolas Test YES-POS, Blood Gas Ventilator Setting NO, Blood Gas Inspired Oxygen NA Procedures NAME: NANCY KIRK [facility] REC#: [id number] PT STATUS: ADM IN : 1940 PHYSICIAN: CHELSY OG DO ADMIT DATE: 02/09/22/ICU Draft Date of Exam:02/11/22 CHEST 1 VIEW, AP/PA ONLY INDICATION: Shock, dyspnea Frontal chest obtained at 0328 a.m. Compared to 02/10/2022 Heart is mildly enlarged. There is mild central vascular congestion with some minimal infiltrate in the right medial base. There is no pneumothorax or pleural fluid. Central venous catheter is unchanged. IMPRESSION: Mild cardiomegaly. There is minimal infiltrate in the right medial base versus atelectasis, stable compared to the prior study. There is no new abnormality. Dictated on workstation # [id number] Dict: 02/11/2227 Trans: 02/11/22 0855 [facility] [id number] Interpreted by: JAMES PRESTON MD Electronically signed by: A/P: Assessment: Progressive weakness - improving Diarrhea - resolved Acute on chronic exacerbation of COPD - management per medical/eICU services Acute on chronic renal disease - reports follows with nephrology at [facility] in [place], [place] Chronic a-fib - BB for rate control - OAC with Eliquis (low dose d/t renal dz) H/O AAA repair approx 8 yrs ago - reports h/o re-do AAA repair with endo-graft x 2 approx 2 months ago in [place] H/O pituitary tumor (benign) 11 yrs ago Hyperthyroidisim - according to lab of 02-10-22 (TSH 0.00) Anxiety Noc hypoxia - oxygen at 2.5 L/NC at hs H/O tobaccoism - quit 5 yrs ago after a 45-50 yr smoking history Plan: Progressive weakness - management per Medical services Acute on chronic exacerbation of COPD with possible pneumonia - management per medical services Chronic a-fib - restart BB at lower dose, consider addition of Cardizem if HR does not improve - continue OAC with Eliquis for stroke prophylaxis (already on renal dosing) Monitor lab WON SEXTON Feb 11, 2022 10:39
[2022-02-11] MEDS ORDERED: inSUlin ASPART (NovoLOG) 1 UNIT/0.01 ML (CHARGE PER UNIT) SC NR (11:00)
--- NOTE | 2022-02-11 11:15 | Tele-ICU Progress Note ---
Subjective Date Seen by a Provider: Feb 11, 2022 Time Seen by a Provider: 11:07 Subjective/Events-last exam (Tele-ICU Physician , consultation) Available chart/ vitals / labs / Images reviewed H&P is from ER notes Patient's information available about PMH, allergy reviewed in EMR. ROS as per chart and RN report Video assessment done using teleICU camera, rest of exam as per RN Discussed with RN. Patient states today that he is feeling somewhat better. Diarrhea improving he had 2 bowel movements apparently today which are not liquidy and it is somewhat formed. No blood seen in the stool. He denies any abdominal pain. He has a elevated lactic acid level at 4.02 the etiology of which is not clear even though his acidosis is improving. He still continues to be tachycardic with a heart rate in 115-120/min range. I have discussed with the medical student to look out for any source of sepsis nor any ischemia due to unexplained elevation of lactic acidosis and she is going to discuss with the primary care physic Impression 1. Diarrhea with dehydration improving 2. Acute and chronic renal failure improving 3. Severe metabolic acidosis the etiology not clear. But the acidosis improved with bicarbonate drip but etiology of lactic acidosis is not clear. CT of abdomen and pelvis unremarkable. 4. COPD with chronic hypoxia on home oxygen 5. Chronic atrial fibrillation not on Eliquis. Recommendations 1. We will decrease bicarbonate drip to 80 mls/hr and repeat bmp at 1300 2. continue monitor lactic acid 3. Continue antibiotics per primary care team 4. We will repeat BMP andlactic acid in am. Sepsis Event Evaluation Height, Weight, BMI Height: '" Weight: lbs. oz. kg; 28.43 BMI Method: Focused Exam Lactate Level 02/09/22 21:25: Lactic Acid Level 1.43 02/10/22 15:40: Lactic Acid Level 2.92*H 02/11/22 03:45: Lactic Acid Level 4.02*H Exam Exam Patient acknowledged, consented, and participated in this virtual visit which was conducted using real time audio/video Vital Signs Date Time Temp Pulse Resp B/P (MAP) Pulse Ox O2 Delivery O2 Flow Rate FiO2 02/11/22 09:00 115 30 127/100 (109) 95 Nasal Cannula 2.00 02/11/22 08:00 124 34 129/75 (93) 94 Nasal Cannula 2.00 02/11/22 08:00 36.5 02/11/22 07:21 96 Nasal Cannula 2.00 02/11/22 07:20 104 02/11/22 07:00 101 21 147/89 (108) 96 Nasal Cannula 2.00 02/11/22 06:00 106 30 133/98 (110) 97 Nasal Cannula 2.00 02/11/22 05:00 112 22 132/79 (96) 95 Nasal Cannula 2.00 02/11/22 04:00 114 28 133/68 (89) 94 Nasal Cannula 2.00 02/11/22 04:00 37.0 Nasal Cannula 2.00 02/11/22 04:00 96 Nasal Cannula 2.00 02/11/22 03:00 107 22 135/64 (87) 95 Nasal Cannula 2.00 02/11/22 02:00 112 22 112/63 (79) 95 Nasal Cannula 2.00 02/11/22 01:00 112 02/11/22 01:00 112 26 153/75 (101) 97 Nasal Cannula 2.00 02/11/22 00:00 112 25 131/67 (88) 100 Nasal Cannula 2.00 02/10/22 23:19 95 Nasal Cannula 2.00 02/10/22 23:00 122 17 125/60 (81) 98 Nasal Cannula 2.00 02/10/22 22:00 120 147/80 (102) 95 Nasal Cannula 2.00 02/10/22 21:29 95 Nasal Cannula 2.00 02/10/22 21:00 112 22 135/81 (99) 95 Nasal Cannula 2.00 02/10/22 20:10 36.8 02/10/22 20:00 117 130/71 (90) 96 Nasal Cannula 2.00 02/10/22 20:00 94 Nasal Cannula 2.00 02/10/22 19:35 117 29 153/75 (101) 96 Nasal Cannula 2.00 02/10/22 19:04 120 02/10/22 18:00 118 131/85 (100) 93 Nasal Cannula 2.00 02/10/22 17:00 108 20 144/83 (103) 96 Nasal Cannula 2.00 02/10/22 16:00 Nasal Cannula 3.00 02/10/22 16:00 121 23 144/99 (114) 97 Nasal Cannula 2.00 02/10/22 15:47 36.6 02/10/22 15:32 Nasal Cannula 2.00 02/10/22 15:30 Nasal Cannula 2.00 02/10/22 15:25 97 Nasal Cannula 3.00 02/10/22 15:00 124 21 162/91 (114) 90 Nasal Cannula 3.00 02/10/22 14:00 123 21 142/105 (117) 85 Nasal Cannula 3.00 02/10/22 12:48 108 02/10/22 12:00 37.1 02/10/22 12:00 111 35 120/73 (89) 97 Nasal Cannula 3.00 02/10/22 11:27 Nasal Cannula 3.00 I & O 02/11/22 07:00 Intake Total 3000 ml Output Total 845 ml Balance 2155 ml Height & Weight Height: '" Weight: lbs. oz. kg; 28.43 BMI Method: General Appearance: WD/WN, Anxious, Chronically ill, Moderate Distress HEENT: PERRL/EOMI, Normal ENT Inspection, Pharynx Normal, Other (dry MM) Neck: Full Range of Motion, Normal Inspection, Non Tender, Supple, Carotid Bruit Respiratory: Chest Non Tender, Lungs Clear, No Accessory Muscle Use, No Respiratory Distress, Decreased Breath Sounds Cardiovascular: No Edema, No Gallop, No JVD, No Murmur, Normal Peripheral Pulses, Irregularly Irregular, Tachycardia Extremity: Normal Capillary Refill, Normal Inspection, Normal Range of Motion, Non Tender, No Calf Tenderness, No Pedal Edema Neurologic/Psychiatric: Alert, Oriented x3, wing coverer II-XII Norm as Tested, Depressed Affect, Motor Weakness Skin: Normal Color, Warm/Dry Lymphatic: No Adenopathy Results Lab Laboratory Tests 02/09/22 21:25 02/10/22 05:27 02/10/22 15:40 02/10/22 23:00 02/11/22 03:45 Assessment/Plan Assessment/Plan as above Critical Care: Critically Ill Patient Time spent with patient (mins): 20 CLAIRE BROWNE MD Feb 11, 2022 11:15
[2022-02-11] MEDS: CEFEPIME 1,000 MG/NS 50 ML IVPB IV SCH ×4 (11:50→21:54)
[2022-02-11] MEDS ORDERED: TROUGH ORDER-PHARMACY XX ONE (12:30)
[2022-02-11] MEDS ORDERED: VANCOMYCIN 1250 MG/NS 250 ML IVPB IV SCH ×2 (13:30)
[2022-02-11 17:16] LABS: POTASSIUM 3.5 MMOL/L (3.6-5.0)
[2022-02-11 17:17] LABS: CALCIUM 7.2 MG/DL (8.5-10.1)
[2022-02-11 17:22] LABS: CREATININE SERUM 2.19 MG/DL (0.60-1.30)
--- NOTE | 2022-02-11 17:22 | Progress Note - Cardiology ---
Cardiology SOAP Progress Note Subjective: Gen malaise and weakness No cp No shortness of breath at rest Diarrhea improving No n/v No focal weakness No swelling Objective: I&O/Vital Signs 02/11/22 02/11/22 02/11/22 02/11/22 06:00 07:00 07:20 07:21 Pulse 106 101 104 Resp 30 21 B/P (MAP) 133/98 (110) 147/89 (108) Pulse Ox 97 96 96 O2 Delivery Nasal Cannula Nasal Cannula Nasal Cannula O2 Flow Rate 2.00 2.00 2.00 02/11/22 02/11/22 02/11/22 02/11/22 08:00 08:00 08:46 09:00 Temp 36.5 Pulse 124 115 Resp 34 30 B/P (MAP) 129/75 (93) 127/100 (109) Pulse Ox 94 95 O2 Delivery Nasal Cannula Nasal Cannula Nasal Cannula O2 Flow Rate 2.00 2.00 2.00 02/11/22 02/11/22 02/11/22 02/11/22 10:00 11:00 11:45 11:55 Temp 36.4 Pulse 117 129 Resp 27 22 B/P (MAP) 142/72 (95) 148/70 (96) Pulse Ox 97 94 O2 Delivery Nasal Cannula Nasal Cannula Nasal Cannula O2 Flow Rate 2.00 2.00 2.00 02/11/22 02/11/22 02/11/22 02/11/22 12:00 13:00 13:15 14:00 Pulse 115 113 115 125 Resp 26 23 23 B/P (MAP) 133/94 (107) 134/70 (91) 120/90 (100) Pulse Ox 94 94 95 O2 Delivery Nasal Cannula Nasal Cannula Nasal Cannula O2 Flow Rate 2.00 2.00 2.00 02/11/22 02/11/22 02/11/22 02/11/22 14:47 15:00 16:00 16:46 Pulse 120 118 Resp 20 16 B/P (MAP) 130/107 (115) 140/75 (96) Pulse Ox 96 95 90 O2 Delivery Nasal Cannula Nasal Cannula Nasal Cannula Nasal Cannula O2 Flow Rate 2.00 2.00 2.00 2.00 02/11/22 00:00 Intake Total 2100 ml Output Total 495 ml Balance 1605 ml Constitutional: AAO x 3, well-developed, well-nourished Respiratory: No accessory muscle use, No respiratory distress; chest expansion is symmetric, chest is bilaterally symmetric, rhonchi (scattered), other (diminished throughout) Cardiovascular: irregularly irregular; No JVD; S1 and S2, systolic murmur Gastrointestional: No tender; soft, round, audible bowel sounds Extremities: other (mild bilat LE swelling) Neurologic/Psychiatric: grossly intact (moves all extremities) Skin: No rash on exposed areas, No ulcerations on exposed areas; other (friable skin on arms) Results/Procedures: Labs Laboratory Tests 02/10/22 20:40: Glucometer 248H 02/10/22 23:00: Sodium Level 134L, Potassium Level 3.8, Chloride Level 102, Carbon Dioxide Level 18L, Anion Gap 14, Blood Urea Nitrogen 40H, Creatinine 2.59H, Estimat Glomerular Filtration Rate 24, BUN/Creatinine Ratio 15, Glucose Level 293H, Calcium Level 6.9L 02/11/22 01:09: Glucometer 299H 02/11/22 03:45: Sodium Level 135, Potassium Level 3.8, Chloride Level 100, Carbon Dioxide Level 21, Anion Gap 14, Blood Urea Nitrogen 41H, Creatinine 2.44H, Estimat Glomerular Filtration Rate 26, BUN/Creatinine Ratio 17, Glucose Level 288H, Calcium Level 6.8L, White Blood Count 13.7H, Red Blood Count 2.69L, Hemoglobin 8.4L, Hematocrit 26L, Mean Corpuscular Volume 96, Mean Corpuscular Hemoglobin 31, Mean Corpuscular Hemoglobin Concent 33, Red Cell Distribution Width 14.1, Platelet Count 184, Mean Platelet Volume 9.6, Immature Granulocyte % (Auto) 1, Neutroph ils (%) (Auto) 94H, Lymphocytes (%) (Auto) 0L, Monocytes (%) (Auto) 5, Eosinophils (%) (Auto) 0, Basophils (%) (Auto) 0, Neutrophils # (Auto) 12.9H, Lymphocytes # (Auto) 0.1L, Monocytes # (Auto) 0.6, Eosinophils # (Auto) 0.0, B asophils # (Auto) 0.0, Immature Granulocyte # (Auto) 0.1, Lactic Acid Level 4.02*H, Corrected Calcium 8.0L, Phosphorus Level 2.9, Magnesium Level 1.9, Total Bilirubin 0.3, Aspartate Amino Transf (AST/SGOT) 37H, Alanine Aminotransferase ( ALT/SGPT) 23, Alkaline Phosphatase 58, Total Protein 4.5L, Albumin 2.5L 02/11/22 03:50: Blood Gas Puncture Site LEFT RADIAL, Blood Gas Patient Temperature 37, Arterial Blood pH 7.41, Arterial Blood Partial Pressure CO2 36, Arterial Blood Partial Pressure O2 80, Arterial Blood HCO3 23, Arterial Blood Total CO2 24.0, Arterial Blood Oxygen Saturation 97, Arterial Blood Base Excess -1.1, Nickolas Test YES-POS, Blood Gas Ventilator Setting NO, Blood Gas Inspired Oxygen 2L 02/11/22 11:33: Glucometer 197H 02/11/22 15:41: Glucometer 205H 02/11/22 16:36: Sodium Level 138, Potassium Level 3.5L, Chloride Level 99, Glucose Level 207H, Calcium Level 7.2L Laboratory Tests 02/09/22 21:25 02/10/22 05:27 02/10/22 15:40 02/10/22 23:00 02/11/22 03:45 02/11/22 16:36 A/P: Assessment: Diarrhea, dehydration, weakness, and metabolic acidosis of undetermined etiology - improving Sinus tach due to above-noted conditions COPD - management per medical/eICU services Acute on chronic renal disease - reports follows with nephrology at [facility] in [place], [place] Chronic a-fib - BB for rate control - OAC with Eliquis (low dose d/t renal dz) H/O AAA repair approx 8 yrs ago - reports h/o re-do AAA repair with endo-graft x 2 approx 2 months ago in [place], [place] H/O pituitary tumor (benign) 11 yrs ago Hyperthyroidisim - according to lab of 02-10-22 (TSH 0.00) Anxiety Noc hypoxia - oxygen at 2.5 L/NC at hs H/O tobaccoism - quit 5 yrs ago after a 45-50 yr smoking history Plan: * BB for heart rate control * Dilt if needed * Eliquis for stroke prophylaxis * Hospitalist svce managing ac exac of COPD, diarrhea, and weakness * Replenish lytes * Monitor labs KAYLENE NINO MD FACP FAC CCDS Feb 11, 2022 17:22
[2022-02-11] MEDS: LOPERAMIDE 2 MG (IMODIUM) TABLET PO PRN ×3 (17:39→23:46)
[2022-02-12] MEDS: NOREPINEPHRINE 8 MG/250 ML 250 ML IV SCH ×2 (01:09→11:06)
[2022-02-12] MEDS: RT-ALBUTEROL/IPRATROPIUM 3 ML (DUONEB) VIAL INH SCH ×4 (03:24→22:19)
[2022-02-12 03:45] LABS: BASOPHILS % (AUTO) 0 % (0-10); EOSINOPHILS % (AUTO) 0 % (0-10); MONOCYTES # (AUTO) 0.3 10^3/uL (0.0-1.0); MONOCYTES % (AUTO) 5 % (0-12); WHITE BLOOD COUNT 6.1 10^3/uL (4.3-11.0)
[2022-02-12 03:47] LABS: HEMATOCRIT 38 % (40-54); HEMOGLOBIN 12.5 g/dL (13.3-17.7); LYMPHOCYTES # (AUTO) 0.1 10^3/uL (1.0-4.0); LYMPHOCYTES % (AUTO) 1 % (12-44); MEAN CORPUSCULAR HEMOGLOBIN 31 pg (25-34); MEAN CORPUSCULAR HGB CONC 33 g/dL (32-36); MEAN CORPUSCULAR VOLUME 93 fL (80-99); MEAN PLATELET VOLUME 10.1 fL (9.0-12.2); NEUTROPHILS # (AUTO) 5.7 10^3/uL (1.8-7.8); NEUTROPHILS % (AUTO) 94 % (42-75); PLATELET COUNT 114 10^3/uL (130-400)
[2022-02-12 04:04] LABS: ABG BASE EXCESS 6.8 MMOL/L (-2.5-2.5); ABG OXYGEN SATURATION 97 % (94-100); ABG PCO2 42 MMHG (35-45); ABG PH 7.47 (7.37-7.43); ABG PO2 77 MMHG (79-93)
[2022-02-12 04:05] LABS: ALLENS TEST YES-POS; PATIENT TEMP 36.9; VENTILATOR NO
[2022-02-12 04:08] LABS: ALBUMIN 2.7 GM/DL (3.2-4.5); BILIRUBIN,TOTAL 0.2 MG/DL (0.1-1.0); CREATININE SERUM 2.08 MG/DL (0.60-1.30); MAGNESIUM 1.9 MG/DL (1.6-2.4); PHOSPHORUS 1.7 MG/DL (2.3-4.7); POTASSIUM 3.6 MMOL/L (3.6-5.0); TOTAL PROTEIN 4.6 GM/DL (6.4-8.2)
[2022-02-12] MEDS: POTASSIUM CL 10MEQ/50ML IVPB 50 ML IV SCH (05:28)
--- NOTE | 2022-02-12 05:28 | Tele-ICU Progress Note ---
Subjective Date Seen by a Provider: Feb 12, 2022 Time Seen by a Provider: 05:26 Subjective/Events-last exam potassium 3.6, phosphate 1.7, will replace, has central line Sepsis Event Evaluation Height, Weight, BMI Height: '" Weight: lbs. oz. kg; 28.43 BMI Method: Focused Exam Lactate Level 02/09/22 21:25: Lactic Acid Level 1.43 02/10/22 15:40: Lactic Acid Level 2.92*H 02/11/22 03:45: Lactic Acid Level 4.02*H Exam Exam Patient acknowledged, consented, and participated in this virtual visit which was conducted using real time audio/video Vital Signs Date Time Temp Pulse Resp B/P (MAP) Pulse Ox O2 Delivery O2 Flow Rate FiO2 02/12/22 04:00 95 Nasal Cannula 2.00 02/12/22 01:09 109 137/74 02/12/22 01:00 112 02/12/22 01:00 109 21 137/74 (95) 95 Nasal Cannula 2.00 02/12/22 00:02 36.8 02/12/22 00:00 113 13 146/93 (110) 97 Nasal Cannula 2.00 02/11/22 23:59 96 Nasal Cannula 2.00 02/11/22 23:00 120 19 154/85 (108) 96 Nasal Cannula 2.00 02/11/22 22:00 117 18 155/80 (105) 97 Nasal Cannula 2.00 02/11/22 21:35 96 Nasal Cannula 2.00 02/11/22 21:00 114 30 136/105 (115) 96 Nasal Cannula 2.00 02/11/22 20:00 90 Nasal Cannula 2.00 02/11/22 20:00 121 27 145/89 (107) 95 Nasal Cannula 2.00 02/11/22 20:00 36.6 02/11/22 19:00 121 32 150/75 (100) 95 Nasal Cannula 2.00 02/11/22 19:00 121 02/11/22 18:00 113 24 145/86 (105) 90 Nasal Cannula 2.00 02/11/22 17:00 111 10 159/79 (105) 98 Nasal Cannula 2.00 02/11/22 16:46 Nasal Cannula 2.00 02/11/22 16:00 118 16 140/75 (96) 90 Nasal Cannula 2.00 02/11/22 15:00 120 20 130/107 (115) 95 Nasal Cannula 2.00 02/11/22 14:47 96 Nasal Cannula 2.00 02/11/22 14:00 125 23 120/90 (100) 95 Nasal Cannula 2.00 02/11/22 13:15 115 02/11/22 13:00 113 23 134/70 (91) 94 Nasal Cannula 2.00 02/11/22 12:00 115 26 133/94 (107) 94 Nasal Cannula 2.00 02/11/22 11:55 Nasal Cannula 2.00 02/11/22 11:45 36.4 02/11/22 11:00 129 22 148/70 (96) 94 Nasal Cannula 2.00 02/11/22 10:00 117 27 142/72 (95) 97 Nasal Cannula 2.00 02/11/22 09:00 115 30 127/100 (109) 95 Nasal Cannula 2.00 02/11/22 08:46 Nasal Cannula 2.00 02/11/22 08:00 124 34 129/75 (93) 94 Nasal Cannula 2.00 02/11/22 08:00 36.5 02/11/22 07:21 96 Nasal Cannula 2.00 02/11/22 07:20 104 02/11/22 07:00 101 21 147/89 (108) 96 Nasal Cannula 2.00 02/11/22 06:00 106 30 133/98 (110) 97 Nasal Cannula 2.00 l I & O 02/12/22 07:00 Intake Total 2700 ml Output Total 1150 ml Balance 1550 ml Height & Weight Height: '" Weight: lbs. oz. kg; 28.43 BMI Method: General Appearance: WD/WN, Anxious, Chronically ill, Moderate Distress HEENT: PERRL/EOMI, Normal ENT Inspection, Pharynx Normal, Other (dry MM) Neck: Full Range of Motion, Normal Inspection, Non Tender, Supple, Carotid Bruit Respiratory: Chest Non Tender, Lungs Clear, No Accessory Muscle Use, No Respiratory Distress, Decreased Breath Sounds Cardiovascular: No Edema, No Gallop, No JVD, No Murmur, Normal Peripheral Pulses, Irregularly Irregular, Tachycardia Extremity: Normal Capillary Refill, Normal Inspection, Normal Range of Motion, Non Tender, No Calf Tenderness, No Pedal Edema Neurologic/Psychiatric: Alert, Oriented x3, spray ii painter II-XII Norm as Tested, Depressed Affect, Motor Weakness Skin: Normal Color, Warm/Dry Lymphatic: No Adenopathy Results Lab Laboratory Tests 02/10/22 05:27 02/10/22 15:40 02/10/22 23:00 02/11/22 03:45 02/11/22 16:36 02/12/22 03:32 Assessment/Plan Assessment/Plan will replace potassium and phosphate Critical Care: Critically Ill Patient Time spent with patient (mins): 5 GENARO SANTANA MD Feb 12, 2022 05:28
[2022-02-12] MEDS: MAGNESIUM 1 GM/100 ML IVPB 100 ML IV SCH (05:29)
[2022-02-12] MEDS: KCL 20 MEQ TAB (K-DUR) PO SCH (05:29)
[2022-02-12] MEDS ORDERED: POTASSIUM PHOSPHATE INJ 30 MM in NS (IVPB) 250 ML IV ONE (05:30)
[2022-02-12] MEDS: HYDROCORTISONE 100 MG/2 ML (Solu-CORTEF) VIAL IV SCH ×4 (05:38→23:16)
[2022-02-12] MEDS: inSUlin ASPART (NovoLOG) 1 UNIT/0.01 ML (CHARGE PER UNIT) SC SCH ×4 (05:39→20:35)
[2022-02-12 07:28] VITALS: BP 151/80
[2022-02-12] MEDS ORDERED: LACTATED RINGERS IV SCH (07:30)
--- NOTE | 2022-02-12 07:32 | Tele-ICU Progress Note ---
Subjective Date Seen by a Provider: Feb 12, 2022 Time Seen by a Provider: 07:26 Subjective/Events-last exam (Tele-ICU Physician , consultation) Available chart/ vitals / labs / Images reviewed H&P is from ER notes Patient's information available about PMH, allergy reviewed in EMR. ROS as per chart and RN report Video assessment done using teleICU camera, rest of exam as per RN Discussed with RN. Patient states today that he is feeling somewhat better. Diarrhea improvin but had small 3-4 liqidy BM's today. and it is somewhat formed. No blood seen in the stool. He denies any abdominal pain. He has a elevated lactic acid level at 4.02 the etiology of which is not clear even though his acidosis is i mproving. His tachycardia improving. Impression 1. Diarrhea with dehydration improving 2. Acute and chronic renal failure improving 3. Severe metabolic acidosis the etiology not clear. But the acidosis improved with bicarbonate drip . CT of abdomen and pelvis unremarkable. 4. COPD with chronic hypoxia on home oxygen 5. Chronic atrial fibrillation now on Eliquis and rate not controlled Recommendations 1. change ivf to LR 80 mls/hr 2. continue monitor lactic acid 3. Continue antibiotics per primary care team 4. Afib management per Cardiology Sepsis Event Evaluation Height, Weight, BMI Height: '" Weight: lbs. oz. kg; 30.27 BMI Method: Focused Exam Lactate Level 02/09/22 21:25: Lactic Acid Level 1.43 02/10/22 15:40: Lactic Acid Level 2.92*H 02/11/22 03:45: Lactic Acid Level 4.02*H Exam Exam Patient acknowledged, consented, and participated in this virtual visit which was conducted using real time audio/video Vital Signs Date Time Temp Pulse Resp B/P (MAP) Pulse Ox O2 Delivery O2 Flow Rate FiO2 02/12/22 06:00 135 31 151/80 (103) Nasal Cannula 2.00 02/12/22 05:52 110 02/12/22 05:26 36.9 02/12/22 05:00 97 25 146/73 (97) 95 Nasal Cannula 2.00 02/12/22 04:00 97 25 142/77 (98) 96 Nasal Cannula 2.00 02/12/22 04:00 95 Nasal Cannula 2.00 02/12/22 03:00 95 21 142/75 (97) 96 Nasal Cannula 2.00 02/12/22 02:00 102 20 145/77 (99) 96 Nasal Cannula 2.00 02/12/22 01:09 109 137/74 02/12/22 01:00 112 02/12/22 01:00 109 21 137/74 (95) 95 Nasal Cannula 2.00 02/12/22 00:02 36.8 02/12/22 00:00 113 13 146/93 (110) 97 Nasal Cannula 2.00 02/11/22 23:59 96 Nasal Cannula 2.00 02/11/22 23:00 120 19 154/85 (108) 96 Nasal Cannula 2.00 02/11/22 22:00 117 18 155/80 (105) 97 Nasal Cannula 2.00 02/11/22 21:35 96 Nasal Cannula 2.00 02/11/22 21:00 114 30 136/105 (115) 96 Nasal Cannula 2.00 02/11/22 20:00 90 Nasal Cannula 2.00 02/11/22 20:00 121 27 145/89 (107) 95 Nasal Cannula 2.00 02/11/22 20:00 36.6 02/11/22 19:00 121 32 150/75 (100) 95 Nasal Cannula 2.00 02/11/22 19:00 121 02/11/22 18:00 113 24 145/86 (105) 90 Nasal Cannula 2.00 02/11/22 17:00 111 10 159/79 (105) 98 Nasal Cannula 2.00 02/11/22 16:46 Nasal Cannula 2.00 02/11/22 16:00 118 16 140/75 (96) 90 Nasal Cannula 2.00 02/11/22 15:00 120 20 130/107 (115) 95 Nasal Cannula 2.00 02/11/22 14:47 96 Nasal Cannula 2.00 02/11/22 14:00 125 23 120/90 (100) 95 Nasal Cannula 2.00 02/11/22 13:15 115 02/11/22 13:00 113 23 134/70 (91) 94 Nasal Cannula 2.00 02/11/22 12:00 115 26 133/94 (107) 94 Nasal Cannula 2.00 02/11/22 11:55 Nasal Cannula 2.00 02/11/22 11:45 36.4 02/11/22 11:00 129 22 148/70 (96) 94 Nasal Cannula 2.00 02/11/22 10:00 117 27 142/72 (95) 97 Nasal Cannula 2.00 02/11/22 09:00 115 30 127/100 (109) 95 Nasal Cannula 2.00 02/11/22 08:46 Nasal Cannula 2.00 02/11/22 08:00 124 34 129/75 (93) 94 Nasal Cannula 2.00 02/11/22 08:00 36.5 I & O 02/12/22 07:00 Intake Total 2950 ml Output Total 1600 ml Balance 1350 ml Height & Weight Height: '" Weight: lbs. oz. kg; 30.27 BMI Method: General Appearance: WD/WN, Anxious, Chronically ill, Moderate Distress HEENT: PERRL/EOMI, Normal ENT Inspection, Pharynx Normal, Other (dry MM) Neck: Full Range of Motion, Normal Inspection, Non Tender, Supple, Carotid Bruit Respiratory: Chest Non Tender, Lungs Clear, No Accessory Muscle Use, No Respiratory Distress, Decreased Breath Sounds Cardiovascular: No Edema, No Gallop, No JVD, No Murmur, Normal Peripheral Pulses, Irregularly Irregular, Tachycardia Extremity: Normal Capillary Refill, Normal Inspection, Normal Range of Motion, Non Tender, No Calf Tenderness, No Pedal Edema Neurologic/Psychiatric: Alert, Oriented x3, vp strategic planning II-XII Norm as Tested, Depressed Affect, Motor Weakness Skin: Normal Color, Warm/Dry Lymphatic: No Adenopathy Results Lab Laboratory Tests 02/10/22 15:40 02/10/22 23:00 02/11/22 03:45 02/11/22 16:36 02/12/22 03:32 Assessment/Plan Assessment/Plan as above Critical Care: Critically Ill Patient Time spent with patient (mins): 15 CLAIRE BROWNE MD Feb 12, 2022 07:32
--- NOTE | 2022-02-12 08:39 | Diagnostic Imaging Report ---
Indication: Shock, dyspnea Frontal chest obtained at 0456 a.m. Compared with 02/11/2022 Heart is mildly enlarged. There is patchy bibasilar infiltrate. There is no pneumothorax or pleural fluid. Left-sided central catheter is unchanged. IMPRESSION: Stable bibasilar infiltrates with no pneumothorax or pleural fluid. Dictated by: Dictated on workstation # [id number]
[2022-02-12] MEDS: LACTATED RINGERS 1,000 ML IV SCH (08:45)
[2022-02-12] MEDS: APIXABAN 2.5 MG (ELIQUIS) TABLET PO SCH ×2 (08:57→20:35)
[2022-02-12] MEDS: PANTOPRAZOLE 40 MG (PROTONIX) VIAL IV SCH (08:57)
[2022-02-12] MEDS: SENNOSIDES 8.6 MG (SENOKOT) TAB PO SCH ×2 (08:58→20:27)
[2022-02-12] MEDS: DOCUSATE SODIUM 100 MG (COLACE) CAP PO SCH ×2 (08:58→20:27)
[2022-02-12] MEDS: CEFEPIME 1,000 MG/NS 50 ML IVPB IV SCH ×4 (09:25→21:33)
--- NOTE | 2022-02-12 09:47 | Progress Note ---
JULIAN PEREZ 02/12/22 0947: Subjective Date Seen by a Provider: Feb 12, 2022 Time Seen by a Provider: 09:30 Subjective/Events-last exam This is a 81yoWM clinic patient of Dr Toussaint who presented to the [facility] 02/09/22 with weakness requiring aggressive IVF and Levophed via central line for a short time along with biPAP which he is no longer on. He does wear oxygen at hs, 2.5L via NC. His primary screed operator is Dr. Mckenna at [place]. Today he reports he is feeling better other than lack of sleep which he attributes to the constant monitoring of the ICU. He had 2 loose BMs since yesterday and was given anti-diarrheal medication which resolved the loose BMs. He reports feeling "puffy" today. This morning EKG revealed Afib. He is being followed by Dr. Crowley during this hospital stay. Beta olegario was restarted and he is on Eliquis for clot prevention. He will be started on Diltiazem per Dr. Crowley today. Review of Systems General: No Chills, No Night Sweats HEENT: No Head Aches, No Visual Changes Pulmonary: No Dyspnea, No Cough Cardiovascular: No: Chest Pain, Palpitations Gastrointestinal: No: Nausea, Vomiting Genitourinary: No Dysuria, No Frequency Musculoskeletal: No: neck pain, shoulder pain Neurological: No: Weakness, Numbness Focused Exam Lactate Level 02/09/22 21:25: Lactic Acid Level 1.43 02/10/22 15:40: Lactic Acid Level 2.92*H 02/11/22 03:45: Lactic Acid Level 4.02*H Objective Exam Last Set of Vital Signs Vital Signs Date Time Temp Pulse Resp B/P (MAP) Pulse Ox O2 Delivery O2 Flow Rate FiO2 02/12/22 09:00 146 18 135/88 (104) 96 Nasal Cannula 2.00 02/12/22 08:00 36.8 Capillary Refill : I&O Intake and Output 02/12/22 00:00 Intake Total 3100 ml Output Total 950 ml Balance 2150 ml Intake Oral 1900 ml IV Total 1200 ml Output Urine Total 950 ml # Bowel Movements 5 General: Alert, Oriented X3, Cooperative HEENT: PERRLA, EOMI Neck: Supple Lungs: Other (decreased breath sounds throughout) Heart: Normal S1, Normal S2, Other (irregularly irregular) Abdomen: Soft, No Tenderness Skin: No Significant Lesion Psych/Mental Status: Mental Status NL, Mood NL Results Lab Laboratory Tests 02/11/22 11:33: Glucometer 197H 02/11/22 15:41: Glucometer 205H 02/11/22 16:36: Sodium Level 138, Potassium Level 3.5L, Chloride Level 99, Carbon Dioxide Level 25, Anion Gap 14, Blood Urea Nitrogen 47H, Creatinine 2.19H, Estimat Glomerular Filtration Rate 30, BUN/Creatinine Ratio 21, Glucose Level 207H, Calcium Level 7.2L 02/11/22 20:26: Glucometer 203H 02/12/22 03:32: White Blood Count 6.1, Red Blood Count 4.09L, Hemoglobin 12.5#L, Hematocrit 38L, Mean Corpuscular Volume 93, Mean Corpuscular Hemoglobin 31, Mean Corpuscular Hemoglobin Concent 33, Red Cell Distribution Width 14.2, Platelet Count 114L, Mean Platelet Volume 10.1, Immature Granulocyte % (Auto) 0, Neutrophils (%) (Auto) 94H, Lymphocytes (%) (Auto) 1L, Monocytes (%) (Auto) 5, Eosinophils (%) (Auto) 0, Basophils (%) (Auto) 0, Neutrophils # (Auto) 5.7, Lymphocytes # (Auto) 0.1L, Monocytes # (Auto) 0.3, Eosinophils # (Auto) 0.0, Basophils # (Auto) 0.0, Immature Granulocyte # (Auto) 0.0, Percent Immature Platelet Fraction 2.3, Sodium Level 136, Potassium Level 3.6, Chloride Level 96L, Carbon Dioxide Level 27, Anion Gap 13, Blood Urea Nitrogen 48H, Creatinine 2.08H, Estimat Glomerular Filtration Rate 32, BUN/Creatinine Ratio 23, Glucose Level 196H, Calcium Level 7.0L, Corrected Calcium 8.0L, Phosphorus Level 1.7L, Magnesium Level 1.9, Total Bilirubin 0.2, Aspartate Amino Transf (AST/SGOT) 23, Alanine Aminotransferase (ALT/SGPT) 23, Alkaline Phosphatase 52, Total Protein 4.6L, Albumin 2.7L 02/12/22 03:35: Blood Gas Puncture Site LEFT RADIAL, Blood Gas Patient Temperature 36.9, Arterial Blood pH 7.47H, Arterial Blood Partial Pressure CO2 42, Arterial Blood Partial Pressure O2 77L, Arterial Blood HCO3 31H, Arterial Blood Total CO2 32.0H , Arterial Blood Oxygen Saturation 97, Arterial Blood Base Excess 6.8H, Nickolas Test YES-POS, Blood Gas Ventilator Setting NO, Blood Gas Inspired Oxygen NA Assessment/Plan Assessment/Plan Assess & Plan/Chief Complaint Assessment/Plan: Hypovolemic shock from recent diarrhea - continue antidiarrheal as needed Oliguria maintain with muñoz and continue to monitor closely ISREAL on CKD aggressive IVF - kidney function now at pt baseline 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 100mg IV Q6 hours PNA- empiric vanc and cefepime Pulmonary edema on CXR Chronic AF - metoprolol OAC maintained on reduced dose HTN HLP COPD GERD AAA Pancreatic mass managed by Dr Richards- biopsy was benign Plan to move to [facility] upon d/c CHELSY OG DO 02/13/22 0451: Supervisory-Addendum Brief Verification & Attestation Participated in pt care: history, MDM, physical Personally performed: exam, history, MDM, supervision of care Care discussed with: Medical Student Procedures: n/a Results interpretation: Verified all documentation Verification and Attestation of Medical Student E/M Service A medical student performed and documented this service in my presence. I reviewed and verified all information documented by the medical student and made modifications to such information, when appropriate. I personally performed the physical exam and medical decision making. Chelsy Og, Feb 13, 2022,04:50 JULIAN PEREZ Feb 12, 2022 09:47 CHELSY OG DO Feb 13, 2022 04:51
[2022-02-12 09:58] LABS: BASOPHILS % (AUTO) 0 % (0-10); EOSINOPHILS % (AUTO) 0 % (0-10); HEMATOCRIT 28 % (40-54); HEMOGLOBIN 8.8 g/dL (13.3-17.7); LYMPHOCYTES # (AUTO) 0.2 10^3/uL (1.0-4.0); LYMPHOCYTES % (AUTO) 2 % (12-44); MEAN CORPUSCULAR HEMOGLOBIN 30 pg (25-34); MEAN CORPUSCULAR HGB CONC 32 g/dL (32-36); MEAN CORPUSCULAR VOLUME 95 fL (80-99); MEAN PLATELET VOLUME 9.7 fL (9.0-12.2); MONOCYTES # (AUTO) 0.5 10^3/uL (0.0-1.0); MONOCYTES % (AUTO) 5 % (0-12); NEUTROPHILS # (AUTO) 9.9 10^3/uL (1.8-7.8); NEUTROPHILS % (AUTO) 92 % (42-75); PLATELET COUNT 169 10^3/uL (130-400); WHITE BLOOD COUNT 10.7 10^3/uL (4.3-11.0)
--- NOTE | 2022-02-12 10:44 | Progress Note - Cardiology ---
Cardiology SOAP Progress Note Subjective: Lying in bed No c/o CP No c/o palpitations Objective: I&O/Vital Signs 02/14/22 02/14/22 02/14/22 02/14/22 01:00 04:20 07:00 07:21 Temp 36.2 36.6 Pulse 65 77 82 84 Resp 16 18 B/P (MAP) 128/69 (88) 127/84 (98) Pulse Ox 97 95 O2 Delivery Nasal Cannula Nasal Cannula O2 Flow Rate 4.00 3.00 02/14/22 02/14/22 02/14/22 02/14/22 08:00 09:48 09:57 11:09 Temp 36.9 Pulse 92 Resp 18 B/P (MAP) 128/58 (81) Pulse Ox 96 93 92 O2 Delivery Nasal Cannula Nasal Cannula Nasal Cannula Nasal Cannula O2 Flow Rate 2.00 3.00 2.00 3.00 02/14/22 00:00 Intake Total 1570 ml Output Total 1100 ml Balance 470 ml Constitutional: AAO x 3, well-developed, well-nourished Respiratory: No accessory muscle use, No respiratory distress; chest expansion is symmetric, chest is bilaterally symmetric, rhonchi (scattered), other (d iminished throughout) Cardiovascular: regular rate-rhythm; No JVD; S1 and S2, systolic murmur Gastrointestional: No tender; soft, round, audible bowel sounds Extremities: other (mild bilat LE swelling) Neurologic/Psychiatric: grossly intact (moves all extremities) Skin: No rash on exposed areas, No ulcerations on exposed areas; other (friable skin on arms) Results/Procedures: Labs Laboratory Tests 02/13/22 16:11: Glucometer 214H 02/13/22 19:40: Glucometer 152H 02/14/22 05:54: Glucometer 138H 02/14/22 06:25: White Blood Count 7.5, Red Blood Count 2.82L, Hemoglobin 8.6L, Hematocrit 27L, Mean Corpuscular Volume 97, Mean Corpuscular Hemoglobin 31, Mean Corpuscular Hemoglobin Concent 32, Red Cell Distribution Width 14.5, Platelet Count 217, Mean Platelet Volume 10.2, Immature Granulocyte % (Auto) 4, Neutrophils (%) (Auto) 81H, Lymphocytes (%) (Auto) 4L, Monocytes (%) (Auto) 11, Eosinophils (%) (Auto) 0, Basophils (%) (Auto) 0, Neutrophils # (Auto) 6.0, Lymphocytes # (Auto) 0.3L, Monocytes # (Auto) 0.8, Eosinophils # (Auto) 0.0, Basophils # (Auto) 0.0, Immature Granulocyte # (Auto) 0.3H, Sodium Level 141, Potassium Level 3.7, Chloride Level 100, Carbon Dioxide Level 28, Anion Gap 13, Blood Urea Nitrogen 60H, Creatinine 1.83H, Estimat Glomerular Filtration Rate 37, BUN/Creatinine Ratio 33, Glucose Level 140H, Calcium Level 7.6L, Corrected Calcium 8.3L, Magnesium Level 1.8, Total Bilirubin 0.4, Aspartate Amino Transf (AST/SGOT) 20, Alanine Aminotransferase (ALT/SGPT) 23, Alkaline Phosphatase 59, Total Protein 5.3L, Albumin 3.1L 02/14/22 11:09: Glucometer 192H A/P: Assessment: Diarrhea, dehydration, weakness, and metabolic acidosis of undetermined etiology - improving COPD - management per medical/eICU services Acute on chronic renal disease - reports follows with nephrology at [facility] in [place], [place] PAF - BB for rate control - rate not well controlled on 02-12-22 - Cardizem CD added - converted to SR on 02-13-22 - OAC with Eliquis (low dose d/t renal dz) H/O AAA repair approx 8 yrs ago - reports h/o re-do AAA repair with endo-graft x 2 approx 2 months ago in [place] H/O pituitary tumor (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
--- NOTE | 2022-02-12 11:00 | Occupational Ther Daily Note ---
OT Current Status-Daily Note Subjective Pt in bed on arrival, agrees to therapy. Pt HR in the 140's. Nursing is aware and okayed tx at bed level. C/o no pain but fatigue and increased trimmers. Mental Status/Objective Patient Orientation: Person, Place, Time, Situation Attachments: Gibson Catheter, IV, Oxygen, Telemetry ADL-Treatment Pt completes oral care in bed by self after set up. Pt completes hair grooming by self. Able to sequence task without VC's or assist. Pt HR increased to 150's and O2 dropped to 80's during activity. O2 recovered quickly after break from activity, HR back to 140's. In bed post tx, phone and call light in reach. All needs met. Therapy Code Descriptions/Definitions Functional [place] Measure: 0=Not Assessed/NA 4=Minimal Assistance 1=Total Assistance 5=Supervision or Setup 2=Maximal Assistance 6=Modified [place] 3=Moderate Assistance 7=Complete IndependenceSCALE: Activities may be completed with or without assistive devices. 2-Atroldudkf-ydfwtoi completes the activity by him/herself with no assistance from a helper. 5-Set-up or Clean-up Assistance-helper sets up or cleans up; patient completes activity. [place] assists only prior to or following the activity. 4-Supervision or Touching Assistance-helper provides verbal cues and/or touching/steadying and/or contact guard assistance as patient completes activity. Assistance may be provided throughout the activity or intermittently. 3-Partial/Moderate Assistance-helper does LESS THAN HALF the effort. [place] lifts, holds or supports trunk or limbs, but provides less than half the effort. 2-Substantial/Maximal Assistance-helper does MORE THAN HALF the effort. [place] lifts or holds trunk or limbs and provides more than half the effort. 8-[place]-q[place] does ALL the effort. Patient does none of the effort to complete the activity. Or, the assistance of 2 or more helpers is required for the patient to complete the activity. If activity was not attempted, code reason: 7-Patient Refused. 9-Not Applicable-not attempted and the patient did not perform the activity b efore the current illness, exacerbation or injury. 10-Not Attempted due to Environmental Limitations-(lack of equipment, weather restraints, etc.). 88-Not Attempted due to Medical Conditions or Safety Concerns. Oral Hygiene (QC): 5 OT Residential Goals [employer] Goals Time Frame: Feb 24, 2022 Oral Hygiene (QC): 5 Toileting Hygiene (QC): 4 Shower/Bathe Self (QC): 4 Upper Body Dressing (QC): 4 Lower Body Dressing (QC): 4 On/Off Footwear (QC): 4 Additional Goals: 1-Demonstrate ADL Tasks, 2-Verbalize Understanding, 3- ImproveStrength/Eliel 1=Demonstrate adherence to instructed precautions during ADL tasks. 2=Patient will verbalize/demonstrate understanding of assistive dev ices/modifications for ADL. 3=Patient will improve strength/tolerance for activity to enable patient to perform ADL's. OT Education/Plan Problem List/Assessment Assessment: No Skilled OT Needs ID'd, Impaired Self-Care Skills Discharge Recommendations Plan/Recommendations: Continue POC Treatment Plan/Plan of Care Patient would benefit from OT for education, treatment and training to promote independence in ADL's, mobility, safety and/or upper extremity function for ADL's. Plan of Care: ADL Retraining, Functional Mobility, Group Exercise/Act as Ind, UE Funct Exercise/Act Treatment Duration: Feb 24, 2022 Frequency: 3 times per week (3-5x/week ) Estimated Hrs Per Day: .25 hour per day Rehab Potential: Fair Time Start Time: 09:40 Stop Time: 09:53 DATE: Feb 12, 2022 Total Time Billed (hr/min): 13 Billed Treatment Time 1 visit ADL (13 min) ELIAZAR VIEIRA Feb 12, 2022 11:00
--- NOTE | 2022-02-12 11:27 | Physical Therapy Progress Note ---
Therapy Progress Note Per Nurse, pt is on Medical Hold due to HBP. Nurse gave medicine shortly before HOST AND HOSTESS came to see pt so HOST AND HOSTESS will check back in afternoon for status. 1 visit, no tx rendered NARINDER KURTZ PTA Feb 12, 2022 11:27
--- NOTE | 2022-02-12 12:46 | Progress Note - Cardiology ---
Cardiology SOAP Progress Note Subjective: More malaise this am No cp or palp or syncope More shortness of breath No n/v/d No focal weakness No swelling Objective: I&O/Vital Signs 02/12/22 02/12/22 02/12/22 02/12/22 01:00 01:00 01:09 02:00 Pulse 109 112 109 102 Resp 21 20 B/P (MAP) 137/74 (95) 137/74 145/77 (99) Pulse Ox 95 96 O2 Delivery Nasal Cannula Nasal Cannula O2 Flow Rate 2.00 2.00 02/12/22 02/12/22 02/12/22 02/12/22 03:00 04:00 04:00 05:00 Pulse 95 97 97 Resp 21 25 25 B/P (MAP) 142/75 (97) 142/77 (98) 146/73 (97) Pulse Ox 96 95 96 95 O2 Delivery Nasal Cannula Nasal Cannula Nasal Cannula Nasal Cannula O2 Flow Rate 2.00 2.00 2.00 2.00 02/12/22 02/12/22 02/12/22 02/12/22 05:26 05:52 06:00 07:00 Temp 36.9 Pulse 110 135 105 Resp 31 32 B/P (MAP) 151/80 (103) 147/67 (93) Pulse Ox 96 O2 Delivery Nasal Cannula Nasal Cannula O2 Flow Rate 2.00 2.00 02/12/22 02/12/22 02/12/22 02/12/22 07:11 07:27 07:28 08:00 Temp 36.9 36.8 Pulse 97 135 Pulse Ox 96 96 O2 Delivery Nasal Cannula O2 Flow Rate 1.00 02/12/22 02/12/22 02/12/22 02/12/22 08:00 08:32 08:44 09:00 Pulse 123 152 146 Resp 20 18 B/P (MAP) 133/66 (88) 135/88 (104) Pulse Ox 87 96 O2 Delivery Nasal Cannula Nasal Cannula Nasal Cannula O2 Flow Rate 2.00 2.00 2.00 02/12/22 02/12/22 10:00 12:05 Pulse 149 Resp 13 B/P (MAP) 119/86 (97) Pulse Ox 96 O2 Delivery Nasal Cannula Nasal Cannula O2 Flow Rate 2.00 2.00 02/12/22 00:00 Intake Total 2050 ml Output Total 650 ml Balance 1400 ml Constitutional: AAO x 3, well-developed, well-nourished Respiratory: No accessory muscle use, No respiratory distress; chest expansion is symmetric, chest is bilaterally symmetric, rhonchi (scattered), other (diminished throughout) Cardiovascular: irregularly irregular; No JVD; tachycardia, S1 and S2, systolic murmur Gastrointestional: No tender; soft, round, audible bowel sounds Extremities: other (mild bilat LE swelling) Neurologic/Psychiatric: grossly intact (moves all extremities) Skin: No rash on exposed areas, No ulcerations on exposed areas; other (friable skin on arms) Results/Procedures: Labs Laboratory Tests 02/11/22 15:41: Glucometer 205H 02/11/22 16:36: Sodium Level 138, Potassium Level 3.5L, Chloride Level 99, Carbon Dioxide Level 25, Anion Gap 14, Blood Urea Nitrogen 47H, Creatinine 2.19H, Estimat Glomerular Filtration Rate 30, BUN/Creatinine Ratio 21, Glucose Level 207H, Calcium Level 7.2L 02/11/22 20:26: Glucometer 203H 02/12/22 03:32: Sodium Level 136, Potassium Level 3.6, Chloride Level 96L, Carbon Dioxide Level 27, Anion Gap 13, Blood Urea Nitrogen 48H, Creatinine 2.08H, Estimat Glomerular Filtration Rate 32, BUN/Creatinine Ratio 23, Glucose Level 196H, Calcium Level 7.0L, White Blood Count 6.1, Red Blood Count 4.09L, Hemoglobin 12.5#L, Hematocrit 38L, Mean Corpuscular Volume 93, Mean Corpuscular Hemoglobin 31, Mean Corpuscular Hemoglobin Concent 33, Red Cell Distribution Width 14.2, Platelet Count 114L, Mean Platelet Volume 10.1, Immature Granulocyte % (Auto) 0, Neutrophils (%) (Auto) 94H, Lymphocytes (%) (Auto) 1L, Monocytes (%) (Auto) 5, Eosinophils (%) (Auto) 0, Basophils (%) (Auto) 0, Neutrophils # (Auto) 5.7, Lymphocytes # (Auto) 0.1L, Monocytes # (Auto) 0.3, Eosinophils # (Auto) 0.0, Basophils # (Auto) 0.0, Immature Granulocyte # (Auto) 0.0, Percent Immature Platelet Fraction 2.3, Corrected Calcium 8.0L, Phosphorus Level 1.7L, Magnesium Level 1.9, Total Bilirubin 0.2, Aspartate Amino Transf (AST/SGOT) 23, Alanine Aminotransferase (ALT/SGPT) 23, Alkaline Phosphatase 52, Total Protein 4.6L, Albumin 2.7L 02/12/22 03:35: Blood Gas Puncture Site LEFT RADIAL, Blood Gas Patient Temperature 36.9, Arterial Blood pH 7.47H, Arterial Blood Partial Pressure CO2 42, Arterial Blood Partial Pressure O2 77L, Arterial Blood HCO3 31H, Arterial Blood Total CO2 32.0H , Arterial Blood Oxygen Saturation 97, Arterial Blood Base Excess 6.8H, Nickolas Test YES-POS, Blood Gas Ventilator Setting NO, Blood Gas Inspired Oxygen NA 02/12/22 09:42: White Blood Count 10.7, Red Blood Count 2.91L, Hemoglobin 8.8#L, Hematocrit 28L, Mean Corpuscular Volume 95, Mean Corpuscular Hemoglobin 30, Mean Corpuscular Hemoglobin Concent 32, Red Cell Distribution Width 14.3, Platelet Count 169, Mean Platelet Volume 9.7, Immature Granulocyte % (Auto) 1, Neutrophils (%) (A uto) 92H, Lymphocytes (%) (Auto) 2L, Monocytes (%) (Auto) 5, Eosinophils (%) (Auto) 0, Basophils (%) (Auto) 0, Neutrophils # (Auto) 9.9H, Lymphocytes # (Auto) 0.2L, Monocytes # (Auto) 0.5, Eosinophils # (Auto) 0.0, Basophils # (Auto) 0.0, Immature Granulocyte # (Auto) 0.1 02/12/22 11:01: Glucometer 166H Laboratory Tests 02/10/22 15:40 02/10/22 23:00 02/11/22 03:45 02/11/22 16:36 02/12/22 03:32 02/12/22 09:42 A/P: Assessment: PAF - BB for rate control - rate not well controlled on 02-12-22 - Cardizem CD added - OAC with Eliquis (low dose d/t renal dz) Diarrhea, dehydration, weakness, and metabolic acidosis of undetermined etiology - improving COPD - management per medical/eICU services Acute on chronic renal disease - reports follows with nephrology at [facility] in [place], [place] H/O AAA repair approx 8 yrs ago - reports h/o re-do AAA repair with endo-graft x 2 [place] pituitary tumor (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
--- NOTE | 2022-02-12 13:43 | Physical Therapy Progress Note ---
Therapy Progress Note CAFETERIA CLERK arrives to check on pt in afternoon, Nurse advises pt can see CAFETERIA CLERK at pt's discretion. Pt declines tx this afternoon and wants PT to check back tomorrow. 1 visit, no tx rendered NARINDER KURTZ CAFETERIA CLERK Feb 12, 2022 13:43
--- NOTE | 2022-02-12 19:03 | Physician Query Clarification ---
Physician Query-General Query to Physician: The medical record reflects the following clinical scenario: The patient, in the setting of History/Risk factors, Hypotension, "presumed pneumonia" Clinical Findings Admission VS/Labs: HR 124, RR 18, BP 132/77, SpO2 98% sat on 3 L T 36.6, with TMax of 37.0, WBC 18.5, lactic acid 1.43 then 2.92 then 4.02, Treatment "aggressive IVF and Levophed for a short time" Cefepime IV Q 12hours, Vancomycin IV x1 then q 48 hours Question: Do you agree with the impression of Septic shock per Brittaney Gillette? 1. Yes; will document Sepsis with Septic Shock present on admission in the Progress Notes 2. No; will continue current documentation in the Progress Notes 3. Other; will document explanation of clinical findings 4. Clinically undetermined; no explanation for clinical findings Please clarify and document your clinical opinion in the Progress Notes and Discharge Summary including the definitive and/or presumptive diagnosis, (suspected or probable), related to the above clinical findings. Please include clinical findings supporting your diagnosis. In responding to this query, please exercise your independent professional judgment. The purpose of this communication is to more accurately reflect the complexity of your patients condition. The fact that a question is asked does not imply that any particular answer is desired or expected. Thank you for timely response to this clarification. Josefina Salamanca RN, MSN Clinical [employer] [place] Ranger [phone] [email or web address] PHYSICIAN RESPONSE: Based on the clinical findings in the record, please respond to the query above on this document as an addendum. Physician Response: Physician Response sepsis only hypovolemic shock If you have questions please contact: Waiter/Waitress Counter: Ext: Thank you for your time and cooperation. Clinical [place] Ranger/Waiter/Waitress Counter This is a permanent part of the medical record JOSEFINA SALAMANCA Feb 12, 2022 19:03 CHELSY OG DO Feb 12, 2022 20:52
[2022-02-12] MEDS: LORazepam 0.5 MG (ATIVAN) TABLET PO PRN (20:35)
[2022-02-13] MEDS: LACTATED RINGERS 1,000 ML IV SCH (01:25)
[2022-02-13 04:18] LABS: BASOPHILS % (AUTO) 0 % (0-10); EOSINOPHILS % (AUTO) 0 % (0-10); HEMATOCRIT 27 % (40-54); HEMOGLOBIN 8.5 g/dL (13.3-17.7); LYMPHOCYTES # (AUTO) 0.2 10^3/uL (1.0-4.0); LYMPHOCYTES % (AUTO) 2 % (12-44); MEAN CORPUSCULAR HEMOGLOBIN 31 pg (25-34); MEAN CORPUSCULAR HGB CONC 32 g/dL (32-36); MEAN CORPUSCULAR VOLUME 97 fL (80-99); MEAN PLATELET VOLUME 10.1 fL (9.0-12.2); MONOCYTES # (AUTO) 0.7 10^3/uL (0.0-1.0); MONOCYTES % (AUTO) 7 % (0-12); NEUTROPHILS # (AUTO) 9.4 10^3/uL (1.8-7.8); NEUTROPHILS % (AUTO) 91 % (42-75); PLATELET COUNT 180 10^3/uL (130-400); WHITE BLOOD COUNT 10.4 10^3/uL (4.3-11.0)
[2022-02-13 04:44] LABS: ALBUMIN 2.9 GM/DL (3.2-4.5); POTASSIUM 4.3 MMOL/L (3.6-5.0)
[2022-02-13 04:45] LABS: CALCIUM 7.3 MG/DL (8.5-10.1)
[2022-02-13 04:46] LABS: TOTAL PROTEIN 5.1 GM/DL (6.4-8.2)
[2022-02-13 04:48] LABS: BILIRUBIN,TOTAL 0.2 MG/DL (0.1-1.0)
[2022-02-13 04:49] LABS: PHOSPHORUS 2.8 MG/DL (2.3-4.7)
[2022-02-13 04:50] LABS: CREATININE SERUM 1.94 MG/DL (0.60-1.30)
[2022-02-13 04:52] LABS: MAGNESIUM 1.8 MG/DL (1.6-2.4)
[2022-02-13] MEDS ORDERED: DOXEPIN 25 MG (SINEquan) CAP PO PRN (05:00)
[2022-02-13] MEDS ORDERED: FLUTICASONE NASAL SPRAY (FLONASE) 16 GM BTL NS PRN (05:15)
[2022-02-13] MEDS: POTASSIUM CL 10MEQ/50ML IVPB 50 ML IV SCH (05:18)
[2022-02-13] MEDS: MAGNESIUM 1 GM/100 ML IVPB 100 ML IV SCH (05:18)
[2022-02-13] MEDS: KCL 20 MEQ TAB (K-DUR) PO SCH (05:19)
[2022-02-13] MEDS: HYDROCORTISONE 100 MG/2 ML (Solu-CORTEF) VIAL IV SCH ×4 (05:43→23:49)
[2022-02-13] MEDS: inSUlin ASPART (NovoLOG) 1 UNIT/0.01 ML (CHARGE PER UNIT) SC SCH ×4 (05:43→20:24)
[2022-02-13] MEDS: LEVOTHYROXINE 125 MCG (LEVOTHROID) TABLET PO SCH (06:08)
[2022-02-13] MEDS: SENNOSIDES 8.6 MG (SENOKOT) TAB PO SCH ×3 (08:14→17:10)
[2022-02-13] MEDS: DOCUSATE SODIUM 100 MG (COLACE) CAP PO SCH ×3 (08:14→17:10)
[2022-02-13] MEDS: RT-ALBUTEROL/IPRATROPIUM 3 ML (DUONEB) VIAL INH SCH ×2 (08:27→22:21)
--- NOTE | 2022-02-13 08:38 | Tele-ICU Progress Note ---
Subjective Date Seen by a Provider: Feb 13, 2022 Time Seen by a Provider: 08:33 Subjective/Events-last exam Available chart/ vitals / labs / Images reviewed H&P is from ER notes, RN and progress notes Patient's information available about PMH, allergy reviewed in EMR. ROS as per chart and RN report Video assessment done using teleICU camera, rest of exam as per RN Discussed with RN. Pt with diarrhea and metabolic acidosis, both are resolving, On Imodium CT abd unremarkable Remains on IV Cefepime, Cr/BUN are slowly improving1.94/29 On 2 lpm Has left SC central line is leaking but site is ok, would reomove Sepsis Event Evaluation Height, Weight, BMI Height: '" Weight: lbs. oz. kg; 31.38 BMI Method: Focused Exam Lactate Level 02/10/22 15:40: Lactic Acid Level 2.92*H 02/11/22 03:45: Lactic Acid Level 4.02*H 02/13/22 04:09: Lactic Acid Level 1.53 Exam Exam Patient acknowledged, consented, and participated in this virtual visit which was conducted using real time audio/video Vital Signs Date Time Temp Pulse Resp B/P (MAP) Pulse Ox O2 Delivery O2 Flow Rate FiO2 02/13/22 06:00 76 20 137/88 (104) 96 Nasal Cannula 2.00 02/13/22 05:00 73 19 123/77 (92) 96 Nasal Cannula 2.00 02/13/22 04:00 75 21 105/76 (86) 95 Nasal Cannula 2.00 02/13/22 04:00 95 Nasal Cannula 2.00 02/13/22 04:00 36.8 02/13/22 03:00 71 20 113/60 (77) 95 Nasal Cannula 2.00 02/13/22 02:00 73 13 104/61 (75) 95 Nasal Cannula 2.00 02/13/22 01:00 71 19 118/64 (82) 96 Nasal Cannula 2.00 02/13/22 00:41 77 02/13/22 00:00 73 18 121/60 (80) 95 Nasal Cannula 2.00 02/12/22 23:22 96 Nasal Cannula 2.00 02/12/22 23:21 36.8 02/12/22 23:00 93 22 135/72 (93) 97 Nasal Cannula 2.00 02/12/22 22:19 Nasal Cannula 2.00 02/12/22 22:00 79 20 132/73 (92) 96 Nasal Cannula 2.00 02/12/22 21:00 81 28 121/79 (93) 96 Nasal Cannula 2.00 02/12/22 20:03 36.9 02/12/22 20:00 84 28 143/84 (103) 96 Nasal Cannula 2.00 02/12/22 20:00 95 Nasal Cannula 2.00 02/12/22 19:05 79 02/12/22 19:00 90 21 137/81 (99) 99 Nasal Cannula 2.00 02/12/22 18:00 81 21 104/86 (92) 95 Nasal Cannula 2.00 02/12/22 17:00 80 20 94/64 (74) 97 Nasal Cannula 2.00 02/12/22 16:42 Nasal Cannula 2.00 02/12/22 16:38 36.5 02/12/22 16:00 81 24 108/64 (79) 97 Nasal Cannula 2.00 02/12/22 15:00 81 22 108/61 (77) 97 Nasal Cannula 2.00 02/12/22 14:30 160 34 104/61 (75) 91 Nasal Cannula 2.00 02/12/22 13:00 112 23 139/75 (96) 98 Nasal Cannula 2.00 02/12/22 12:42 93 02/12/22 12:05 Nasal Cannula 2.00 02/12/22 12:00 113 40 143/118 (126) 98 Nasal Cannula 2.00 02/12/22 11:00 117 24 134/75 (94) 96 Nasal Cannula 2.00 02/12/22 10:00 149 13 119/86 (97) 96 Nasal Cannula 2.00 02/12/22 09:00 146 18 135/88 (104) 96 Nasal Cannula 2.00 02/12/22 08:44 152 I & O 02/13/22 07:00 Intake Total 1785 ml Output Total 1250 ml Balance 535 ml Height & Weight Height: '" Weight: lbs. oz. kg; 31.38 BMI Method: General Appearance: WD/WN, Anxious, Chronically ill, Moderate Distress HEENT: PERRL/EOMI, Normal ENT Inspection, Pharynx Normal, Other (dry MM) Neck: Full Range of Motion, Normal Inspection, Non Tender, Supple, Carotid Bruit Respiratory: Chest Non Tender, Lungs Clear, No Accessory Muscle Use, No Respiratory Distress, Decreased Breath Sounds Cardiovascular: No Edema, No Gallop, No JVD, No Murmur, Normal Peripheral Pulses, Irregularly Irregular, Tachycardia Extremity: Normal Capillary Refill, Normal Inspection, Normal Range of Motion, Non Tender, No Calf Tenderness, No Pedal Edema, Pedal Edema (+3 leg edema in both legs) Neurologic/Psychiatric: Alert, Oriented x3, admissions supervisor II-XII Norm as Tested, Depressed Affect, Motor Weakness Skin: Normal Color, Warm/Dry Lymphatic: No Adenopathy Results Lab Laboratory Tests 02/11/22 16:36 02/12/22 03:32 02/12/22 09:42 02/13/22 04:09 Assessment/Plan Assessment/Plan Doing well, can go to rehab for decondtioning if bed available Critical Care: Critically Ill Patient GENARO SANTANA MD Feb 13, 2022 08:38
[2022-02-13] MEDS: APIXABAN 2.5 MG (ELIQUIS) TABLET PO SCH ×2 (09:39→20:25)
[2022-02-13] MEDS: PANTOPRAZOLE 40 MG (PROTONIX) TAB PO SCH (09:39)
[2022-02-13] MEDS: FOLIC ACID 1 MG TAB PO SCH (09:39)
[2022-02-13] MEDS: CEFEPIME 1,000 MG/NS 50 ML IVPB IV SCH ×4 (09:39→17:07)
--- NOTE | 2022-02-13 09:48 | Diagnostic Imaging Report ---
INDICATION: Shock with dyspnea. Comparison with 02/12/2022. FINDINGS: The lungs are well-aerated with some mild discoid atelectasis in the left lung base. There is minimal residual patchy alveolar infiltrate in the right lung base. The upper lungs are clear. The heart is mildly enlarged. No evidence of pulmonary edema. No pneumothorax or pleural effusion. IMPRESSION: There has been some improvement with some decrease in right basilar infiltrate though there remains some mild infiltrate. Discoid atelectasis again noted in the left lung base. Dictated by: Dictated on workstation # [id number]
[2022-02-13] MEDS ORDERED: FUROSEMIDE 40 MG/4 ML INJ (LASIX) IVP NR (10:00)
--- NOTE | 2022-02-13 11:02 | Physical Therapy Daily Note ---
PT Daily Note-Current Subjective Pt found lying in bed upon entry. Agreed to PT. States that his legs feel a little more stiff today. Does not rate or report any change in pain. Pain Section J - Health Conditions 1. Rarely or not at all 2. Occasionally 3. Frequently 4. Almost constantly 8. Unable to answer Pain Effect on Sleep: 1 Pain Interference with Therapy: 1 Pain Interference w/Day-to-Day: 1 Mental Status Patient Orientation: Person, Place, Time Attachments: Oxygen, Gibson Catheter, IV Transfers SCALE: Activities may be completed with or without assistive devices. 5-Qseqtqjxnk-ogjqjat completes the activity by him/herself with no assistance from a helper. 5-Set-up or Clean-up Assistance-helper sets up or cleans up; patient completes activity. [place] assists only prior to or following the activity. 4-Supervision or Touching Assistance-helper provides verbal cues and/or touching/steadying and/or contact guard assistance as patient completes activity. Assistance may be provided throughout the activity or intermittently. 3-Partial/Moderate Assistance-helper does LESS THAN HALF the effort. [place] lifts, holds or supports trunk or limbs, but provides less than half the effort. 2-Substantial/Maximal Assistance-helper does MORE THAN HALF the effort. [place] lifts or holds trunk or limbs and provides more than half the effort. 1-Mlrqszgts-ttmtsg does ALL the effort. Patient does none of the effort to complete the activity. Or, the assistance of 2 or more helpers is required for the patient to complete the activity. If activity was not attempted, code reason: 7-Patient Refused. 9-Not Applicable-not attempted and the patient did not perform the activity before the current illness, exacerbation or injury. 10-Not Attempted due to Environmental Limitations-(lack of equipment, weather restraints, etc.). 88-Not Attempted due to Medical Conditions or Safety Concerns. Roll Left & Right (QC): 3 Sit to Lying (QC): 3 Lying to Sitting/Side of Bed(Q: 3 Sit to Stand (QC): 4 Pt MIN A /c bed mobility. CGA /c sit<->stand. Weight Bearing Right Lower Extremity: Right Full Weight Bearing Left Lower Extremity: Left Full Weight Bearing Gait Training Does the Patient Walk?: Yes Distance: 10 Walk 10 feet (QC): 4 Gait Assistive Device: FWW Pt CGA /c gait training. Amb. 10ft total. Assessment Current Status: Fair Progress Pt is slow to complete bed mobility and requires assistance. Amb. 10ft today d/t fatigue and weakness. Continue to progress pt as tolerated to increase functional ability, endurance, and strength. 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 M[facility] Goals 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 Time Frame: Feb 17, 2022 Roll Left & Right (QC): 6 Sit to Lying (QC): 6 Lying-Sitting on Side/Bed(QC): 6 Sit to Stand (QC): 6 Chair/Fcc-bz-Jqlnb Xfer(QC): 6 Toilet Transfer (QC): 6 Walk 10 feet (QC): 6 Walk 50ft with 2 Turns (QC): 6 Walk 150 ft (QC): 4 (SBA) PT Plan Treatment/Plan Treatment Plan: Continue Plan of Care Treatment Plan: Bed Mobility, Education, Functional Activity Eilel, Functional Strength, Gait, Safety, Therapeutic Exercise, Transfers Treatment Duration: Feb 17, 2022 Frequency: 6 times per week Estimated Hrs Per Day: .25 hour per day Patient and/or Family Agrees t: Yes Time Time In: 0938 Time Out: 1002 DATE: Feb 13, 2022 Total Billed Treatment Time: 24 Total Billed Treatment 1 visit FA 1x GT 1x VANIA ASTUDILLO MANAGEMENT LIAISON Feb 13, 2022 11:02
--- NOTE | 2022-02-13 11:07 | Progress Note ---
JULIAN PEREZ 02/13/22 1107: Subjective Date Seen by a Provider: Feb 13, 2022 Time Seen by a Provider: 10:00 Subjective/Events-last exam This is a 81yoWM clinic patient of Dr Toussaint who presented to the [facility] ER 02/09/22 with weakness requiring aggressive IVF and Levophed via central line for a short time along with biPAP which he is no longer on. He does wear oxygen at hs, 2.5L via NC. His primary lead operator is Dr. Mckenna at [place]. Today he reports still having trouble with sleeping. He does feel he is overall getting better. His urine output has been adequate and his loose BM have resolved with anti-diarrheal. His central line is leaking and the nurse planned to move IV fluids to the peripheral line. He refused to have ABG collected this morning. CXR with some improvement today. EKG revealed sinus rhythm with occasional PVCs. Lactic acid improved to 1.53 from 4.02. BUN and Cr stable around patients baseline. Review of Systems General: No Chills, No Night Sweats HEENT: No Head Aches, No Sore Throat Pulmonary: No Cough Cardiovascular: No: Chest Pain Gastrointestinal: No: Nausea, Vomiting, Abdominal Pain Genitourinary: No Dysuria Neurological: No: Weakness Focused Exam Lactate Level 02/10/22 15:40: Lactic Acid Level 2.92*H 02/11/22 03:45: Lactic Acid Level 4.02*H 02/13/22 04:09: Lactic Acid Level 1.53 Objective Exam Last Set of Vital Signs Vital Signs Date Time Temp Pulse Resp B/P (MAP) Pulse Ox O2 Delivery O2 Flow Rate FiO2 02/13/22 09:00 93 19 114/85 (95) 95 Nasal Cannula 2.00 02/13/22 08:00 36.0 Capillary Refill : I&O Intake and Output 02/13/22 00:00 Intake Total 2085 ml Output Total 1750 ml Balance 335 ml Intake Oral 1725 ml IV Total 360 ml Output Urine Total 1750 ml # Bowel Movements 2 General: Alert, Oriented X3 HEENT: PERRLA, EOMI Neck: Supple Lungs: Other (diminished throughout) Heart: Normal S1, Normal S2, Other (irregularly irregular) Abdomen: Normal Bowel Sounds, Soft, No Tenderness Extremities: Other (2+ edema b/l lower extremities) Skin: No Significant Lesion Neuro: Normal Speech Psych/Mental Status: Mental Status NL, Mood NL Results Lab Laboratory Tests 02/12/22 11:01: Glucometer 166H 02/12/22 15:48: Glucometer 161H 02/12/22 20:23: Glucometer 179H 02/13/22 04:09: White Blood Count 10.4, Red Blood Count 2.76L, Hemoglobin 8.5L, Hematocrit 27L, Mean Corpuscular Volume 97, Mean Corpuscular Hemoglobin 31, Mean Corpuscular Hemoglobin Concent 32, Red Cell Distribution Width 14.5, Platelet Count 180, Mean Platelet Volume 10.1, Immature Granulocyte % (Auto) 1, Neutrophils (%) (Auto) 91H, Lymphocytes (%) (Auto) 2L, Monocytes (%) (Auto) 7, Eosinophils (%) (Auto) 0, Basophils (%) (Auto) 0, Neutrophils # (Auto) 9.4H, Lymphocytes # (Auto) 0.2L, Monocytes # (Auto) 0.7, Eosinophils # (Auto) 0.0, Basophils # (Auto) 0.0, Immature Granulocyte # (Auto) 0.1, Sodium Level 138, Potassium Level 4.3, Chloride Level 97L, Carbon Dioxide Level 29, Anion Gap 12, Blood Urea Nitrogen 56H, Creatinine 1.94H, Estimat Glomerular Filtration Rate 35, BUN/Creatinine Ratio 29, Glucose Level 161H, Lactic Acid Level 1.53, Calcium Level 7.3L, Corrected Calcium 8.2L, Phosphorus Level 2.8, Magnesium Level 1.8, Total Bilirubin 0.2, Aspartate Amino Transf (AST/SGOT) 22, Alanine Aminotransferase (ALT/SGPT) 21, Alkaline Phosphatase 61, Total Protein 5.1L, Albumin 2.9L 02/13/22 10:36: Glucometer 171H Assessment/Plan Assessment/Plan Assess & Plan/Chief Complaint Assessment/Plan: Hypovolemic shock from recent diarrhea - continue antidiarrheal as needed Oliguria maintain with muñoz and continue to monitor closely ISREAL on CKD aggressive IVF - kidney function at pt baseline 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 100mg IV Q6 hours PNA- empiric vanc and cefepime Pulmonary edema on CXR - improving Chronic AF - metoprolol, cardizem managed by cardiology OAC maintained on reduced dose HTN HLP COPD GERD AAA Pancreatic mass managed by Dr Richards- biopsy was benign Plan to move to 4th floor today given improved status and [place] [facility] bed upon d/c LATISHA OG DO 02/14/22 0440: Objective Exam General: Alert, Oriented X3, Cooperative, No Acute Distress Lungs: Clear to Auscultation Heart: Regular Rate Psych/Mental Status: Mental Status NL Assessment/Plan Assessment/Plan Assess & Plan/Chief Complaint AF managed Supervisory-Addendum Brief Verification & Attestation Participated in pt care: history, MDM, physical Personally performed: exam, history, MDM, supervision of care Care discussed with: Medical Student Procedures: n/a Results interpretation: Verified all documentation Verification and Attestation of Medical Student E/M Service A medical student performed and documented this service in my presence. I reviewed and verified all information documented by the medical student and made modifications to such information, when appropriate. I personally performed the physical exam and medical decision making. Latisha Og Feb 14, 2022,04:40 JULIAN PEREZ Feb 13, 2022 11:07 LATISHA OG DO Feb 14, 2022 04:40
--- NOTE | 2022-02-13 11:11 | Occupational Ther Daily Note ---
OT Current Status-Daily Note Subjective Pt alert, lying in bed. Pt reluctantly agrees to therapy. Mental Status/Objective Patient Orientation: Person, Place, Time, Situation Attachments: IV, Oxygen (2L), Telemetry ADL-Treatment Therapy Code Descriptions/Definitions Functional [place] Measure: 0=Not Assessed/NA 4=Minimal Assistance 1=Total Assistance 5=Supervision or Setup 2=Maximal Assistance 6=Modified [place] 3=Moderate Assistance 7=Complete IndependenceSCALE: Activities may be completed with or without assistive devices. 2-Stcwfwvbfo-kutsszn completes the activity by him/herself with no assistance from a helper. 5-Set-up or Clean-up Assistance-helper sets up or cleans up; patient completes activity. [place] assists only prior to or following the activity. 4-Supervision or Touching Assistance-helper provides verbal cues and/or touching/steadying and/or contact guard assistance as patient completes activity. Assistance may be provided throughout the activity or intermittently. 3-Partial/Moderate Assistance-helper does LESS THAN HALF the effort. [place] lifts, holds or supports trunk or limbs, but provides less than half the effort. 2-Substantial/Maximal Assistance-helper does MORE THAN HALF the effort. [place] lifts or holds trunk or limbs and provides more than half the effort. 3-Qslhgzccn-penzuu does ALL the effort. Patient does none of the effort to complete the activity. Or, the assistance of 2 or more helpers is required for the patient to complete the activity. If activity was not attempted, code reason: 7-Patient Refused. 9-Not Applicable-not attempted and the patient did not perform the activity before the current illness, exacerbation or injury. 10-Not Attempted due to Environmental Limitations-(lack of equipment, weather restraints, etc.). 88-Not Attempted due to Medical Conditions or Safety Concerns. Other Treatment Pt declines any OOB activities. Declines to complete any ADLs at this time. Pt allowed to be set up for oral care and grooming, to be completed at a later time when pt is ready. After session, pt lying in bed with call light/phone in reach. All needs met in room. OT Skilled Nursing Goals Material Handling Supervisor Goals Time Frame: Feb 24, 2022 Oral Hygiene (QC): 5 Toileting Hygiene (QC): 4 Shower/Bathe Self (QC): 4 Upper Body Dressing (QC): 4 Lower Body Dressing (QC): 4 On/Off Footwear (QC): 4 Additional Goals: 1-Demonstrate ADL Tasks, 2-Verbalize Understanding, 3- ImproveStrength/Eliel 1=Demonstrate adherence to instructed precautions during ADL tasks. 2=Patient will verbalize/demonstrate understanding of assistive devices/modifications for ADL. 3=Patient will improve strength/tolerance for activity to enable patient to perform ADL's. OT Education/Plan Problem List/Assessment Assessment: No Skilled OT Needs ID'd, Impaired Self-Care Skills Discharge Recommendations Plan/Recommendations: Continue POC Treatment Plan/Plan of Care Patient would benefit from OT for education, treatment and training to promote independence in ADL's, mobility, safety and/or upper extremity function for ADL's. Plan of Care: ADL Retraining, Functional Mobility, Group Exercise/Act as Ind, UE Funct Exercise/Act Treatment Duration: Feb 24, 2022 Frequency: 3 times per week (3-5x/week ) Estimated Hrs Per Day: .25 hour per day Rehab Potential: Fair Time Start Time: 10:45 Stop Time: 10:53 DATE: Feb 13, 2022 Total Time Billed (hr/min): 8 Billed Treatment Time 1 visit ADL (8 min) ELIAZAR VIEIRA Feb 13, 2022 11:11
[2022-02-13] MEDS: LORazepam 0.5 MG (ATIVAN) TABLET PO PRN (11:54)
--- NOTE | 2022-02-13 15:29 | Progress Note - Cardiology ---
Cardiology SOAP Progress Note Subjective: Has gen weakness and malaise Mod shortness of breath with activity No cp or palp or syncope Bilateral leg swelling No n/v/d Objective: I&O/Vital Signs 02/13/22 02/13/22 02/13/22 02/13/22 04:00 04:00 04:00 05:00 Temp 36.8 Pulse 75 73 Resp 21 19 B/P (MAP) 105/76 (86) 123/77 (92) Pulse Ox 95 95 96 O2 Delivery Nasal Cannula Nasal Cannula Nasal Cannula O2 Flow Rate 2.00 2.00 2.00 02/13/22 02/13/22 02/13/22 02/13/22 06:00 07:00 07:35 08:00 Pulse 76 62 81 Resp 20 19 B/P (MAP) 137/88 (104) 112/66 (81) Pulse Ox 96 97 95 O2 Delivery Nasal Cannula Nasal Cannula Nasal Cannula O2 Flow Rate 2.00 2.00 2.00 02/13/22 02/13/22 02/13/22 02/13/22 08:00 08:00 08:16 08:46 Temp 36.0 Pulse 67 77 89 Resp 18 B/P (MAP) 129/76 (93) Pulse Ox 99 O2 Delivery Nasal Cannula O2 Flow Rate 2.00 02/13/22 02/13/22 02/13/22 02/13/22 09:00 11:58 12:00 12:00 Temp 36.2 Pulse 93 92 Resp 19 22 B/P (MAP) 114/85 (95) 139/86 (103) Pulse Ox 95 95 95 O2 Delivery Nasal Cannula Nasal Cannula Nasal Cannula O2 Flow Rate 2.00 2.00 2.00 02/13/22 00:00 Intake Total 1285 ml Output Total 575 ml Balance 710 ml Constitutional: AAO x 3, well-developed, well-nourished Respiratory: No accessory muscle use, No respiratory distress; chest expansion is symmetric, chest is bilaterally symmetric, rhonchi (scattered), other (diminished throughout) Cardiovascular: regular rate-rhythm; No JVD; S1 and S2, systolic murmur Gastrointestional: No tender; soft, round, audible bowel sounds Extremities: other (mild bilat LE swelling) Neurologic/Psychiatric: grossly intact (moves all extremities) Skin: No rash on exposed areas, No ulcerations on exposed areas; other (friable skin on arms) Results/Procedures: Labs Laboratory Tests 02/12/22 15:48: Glucometer 161H 02/12/22 20:23: Glucometer 179H 02/13/22 04:09: White Blood Count 10.4, Red Blood Count 2.76L, Hemoglobin 8.5L, Hematocrit 27L, Mean Corpuscular Volume 97, Mean Corpuscular Hemoglobin 31, Mean Corpuscular Hemoglobin Concent 32, Red Cell Distribution Width 14.5, Platelet Count 180, Mean Platelet Volume 10.1, Immature Granulocyte % (Auto) 1, Neutrophils (%) (Auto) 91H, Lymphocytes (%) (Auto) 2L, Monocytes (%) (Auto) 7, Eosinophils (%) (Auto) 0, Basophils (%) (Auto) 0, Neutrophils # (Auto) 9.4H, Lymphocytes # (Auto) 0.2L, Monocytes # (Auto) 0.7, Eosinophils # (Auto) 0.0, Basophils # (Auto) 0.0, Immature Granulocyte # (Auto) 0.1, Sodium Level 138, Potassium Level 4.3, Chloride Level 97L, Carbon Dioxide Level 29, Anion Gap 12, Blood Urea Nitrogen 56H, Creatinine 1.94H, Estimat Glomerular Filtration Rate 35, BUN/Creatinine Ratio 29, Glucose Level 161H, Lactic Acid Level 1.53, Calcium Level 7.3L, Corrected Calcium 8.2L, Phosphorus Level 2.8, Magnesium Level 1.8, Total Bilirubin 0.2, Aspartate Amino Transf (AST/SGOT) 22, Alanine Aminotransferase (ALT/SGPT) 21, Alkaline Phosphatase 61, Total Protein 5.1L, Albumin 2.9L 02/13/22 10:36: Glucometer 171H Laboratory Tests 02/11/22 16:36 02/12/22 03:32 02/12/22 09:42 02/13/22 04:09 A/P: Assessment: Diarrhea, dehydration, weakness, and metabolic acidosis of undetermined etiology - improved - volume overloaded on physical exam of 02/13/22 COPD - management per medical/eICU services Acute on chronic renal disease (CKD 4) - reports follows with nephrology at [facility] in [place], [place] PAF - BB for rate control - rate not well controlled on 02-12-22 - Cardizem CD added - converted to SR on 02-13-22 - OAC with Eliquis (low dose d/t renal dz) - Echo on 02/10/22: LVEF 55-60%, AoV sclerosis w/o stenosis and with trivial AI, mild MR, PASP 45-50 mmHg H/O AAA repair approx 8 yrs ago - reports h/o re-do AAA repair with endo-graft x 2 approx 2 months ago in [facility] H/O pituitary tumor (benign) 11 yrs ago Hyperthyroidisim - according to lab of 02-10-22 (TSH 0.00) Anxiety Noc hypoxia - oxygen at 2.5 L/NC at hs H/O tobaccoism - quit 5 yrs ago after a 45-50 yr smoking history Anemia of undetermined etiology - management per medical services Plan: * Converted to SR * Eliquis for stroke prophylaxis * Increasing bilat LE swelling with positive fluid balance and increased weight. This suggestive of vol overload. Give furosemide today and d/c iv fluids * Hospitalist svce managing ac exac of COPD, diarrhea, and weakness * Replenish lytes * Monitor labs * Anemia of undermined etiology - management per medical services * I discussed his CV issues and our treatment plan with him and his daughter (who was on the phone) and answered questions KAYLENE NINO MD FACP FAC CCDS Feb 13, 2022 15:29
[2022-02-13] MEDS ORDERED: LOPERAMIDE 2 MG (IMODIUM) TABLET PO PRN (16:00)
[2022-02-13] MEDS ORDERED: LOPERAMIDE 2 MG (IMODIUM) TABLET PO NR (16:15)
[2022-02-13 16:50] VITALS: BP 144/70
[2022-02-13 20:03] VITALS: BP 137/71
[2022-02-13] MEDS ORDERED: ALPRAZolam 1 MG (XANAX) TAB PO SCH (21:00)
[2022-02-13 23:49] VITALS: BP 109/57
[2022-02-14] MEDS: CEFEPIME 1,000 MG/NS 50 ML IVPB IV SCH ×4 (02:41→10:07)
[2022-02-14 04:20] VITALS: BP 128/69
[2022-02-14] MEDS: inSUlin ASPART (NovoLOG) 1 UNIT/0.01 ML (CHARGE PER UNIT) SC SCH ×3 (06:21→16:28)
[2022-02-14] MEDS: LEVOTHYROXINE 125 MCG (LEVOTHROID) TABLET PO SCH (06:51)
[2022-02-14] MEDS: HYDROCORTISONE 100 MG/2 ML (Solu-CORTEF) VIAL IV SCH ×2 (06:51→11:37)
[2022-02-14 06:52] LABS: BASOPHILS % (AUTO) 0 % (0-10); EOSINOPHILS % (AUTO) 0 % (0-10); HEMATOCRIT 27 % (40-54); HEMOGLOBIN 8.6 g/dL (13.3-17.7); LYMPHOCYTES # (AUTO) 0.3 10^3/uL (1.0-4.0); LYMPHOCYTES % (AUTO) 4 % (12-44); MEAN CORPUSCULAR HEMOGLOBIN 31 pg (25-34); MEAN CORPUSCULAR HGB CONC 32 g/dL (32-36); MEAN CORPUSCULAR VOLUME 97 fL (80-99); MEAN PLATELET VOLUME 10.2 fL (9.0-12.2); MONOCYTES # (AUTO) 0.8 10^3/uL (0.0-1.0); MONOCYTES % (AUTO) 11 % (0-12); NEUTROPHILS % (AUTO) 81 % (42-75); PLATELET COUNT 217 10^3/uL (130-400); WHITE BLOOD COUNT 7.5 10^3/uL (4.3-11.0)
[2022-02-14 07:14] LABS: ALBUMIN 3.1 GM/DL (3.2-4.5); BILIRUBIN,TOTAL 0.4 MG/DL (0.1-1.0); CALCIUM 7.6 MG/DL (8.5-10.1); CREATININE SERUM 1.83 MG/DL (0.60-1.30); MAGNESIUM 1.8 MG/DL (1.6-2.4); POTASSIUM 3.7 MMOL/L (3.6-5.0); TOTAL PROTEIN 5.3 GM/DL (6.4-8.2)
[2022-02-14 07:21] VITALS: BP 127/84
[2022-02-14] MEDS: APIXABAN 2.5 MG (ELIQUIS) TABLET PO SCH (08:04)
[2022-02-14] MEDS: FOLIC ACID 1 MG TAB PO SCH (08:04)
[2022-02-14] MEDS: PANTOPRAZOLE 40 MG (PROTONIX) TAB PO SCH (08:05)
[2022-02-14] MEDS: SENNOSIDES 8.6 MG (SENOKOT) TAB PO SCH (08:07)
[2022-02-14] MEDS: DOCUSATE SODIUM 100 MG (COLACE) CAP PO SCH (08:07)
--- NOTE | 2022-02-14 09:16 | Physical Therapy Daily Note ---
PT Daily Note-Current Subjective Pt. in bathroom on toilet upon entering. Pt. states he would appreciate if this PHYSICAL SCIENCES INSTRUCTOR was waiting just outside for him to finish. Pt. states he is not in pain but is plagued by diarrhea and wants something for it. This info was relayed to the nurse. Pt. shares that he uses 3-4 L O2 at home and is having SOB at this time , This was very visible to see. Pt. did find some relief with sitting/ resting but with gait and TRFs pt. appeared to be in air hunger Pain Location: No Pain Reported Section J - Health Conditions 1. Rarely or not at all 2. Occasionally 3. Frequently 4. Almost constantly 8. Unable to answer Pain Effect on Sleep: 1 Pain Interference with Therapy: 1 Pain Interference w/Day-to-Day: 1 Appearance dyspnea, pt. on toilet upon entering , pink tinged watery stool , nursing notified of this and pts request for meds for diarrhea Mental Status Patient Orientation: Normal For Age Attachments: Oxygen (3L ext tubing) Transfers SCALE: Activities may be completed with or without assistive devices. 0-Nwopikenyr-lobujmq completes the activity by him/herself with no assistance from a helper. 5-Set-up or Clean-up Assistance-helper sets up or cleans up; patient completes activity. [place] assists only prior to or following the activity. 4-Supervision or Touching Assistance-helper provides verbal cues and/or touching/steadying and/or contact guard assistance as patient completes activity. Assistance may be provided throughout the activity or intermittently. 3-Partial/Moderate Assistance-helper does LESS THAN HALF the effort. [place] lifts, holds or supports trunk or limbs, but provides less than half the effort. 2-Substantial/Maximal Assistance-helper does MORE THAN HALF the effort. [place] lifts or holds trunk or limbs and provides more than half the effort. 1-Rrmdyxwmy-flbhwp does ALL the effort. Patient does none of the effort to complete the activity. Or, the assistance of 2 or more helpers is required for the patient to complete the activity. If activity was not attempted, code reason: 7-Patient Refused. 9-Not Applicable-not attempted and the patient did not perform the activity before the current illness, exacerbation or injury. 10-Not Attempted due to Environmental Limitations-(lack of equipment, weather restraints, etc.). 88-Not Attempted due to Medical Conditions or Safety Concerns. Sit to Stand (QC): 3 Chair/Rnd-fi-Ivtcr Xfer(QC): 3 Toilet Transfer (QC): 3 Weight Bearing Right Lower Extremity: Right Full Weight Bearing Left Lower Extremity: Left Full Weight Bearing Gait Training Does the Patient Walk?: Yes Walk 10 feet (QC): 4 Gait Persons Needed: 1 Gait Assistive Device: FWW pt. required assist to advance FWW , and to manage O2 tubing, pt. walked very slowly and shuffled his feet as well as stopping to rest and was given instruction for breathing pattern etc. Pt. ambulated 15 ft toilet to recliner and was notably SOA, pt. could not talk and was put in position to assist with opening diaphragm as much as possible. Exercises Supine Ex: Ankle pumps, Quad Set, Glut sets Supine Reps: 12 Treatments sit to stands mod, gait min to mod 15 ft, settled in to recliner with belt off, haney at hand, O2 insitu at 3 L. brkfst served. Assessment Current Status: Poor Progress very short funct distances of gait cause SOB, no O2 sat mon available at the time, PT Long-Term Goals Long-Term Goals PT Long-Term Goals Time Frame: Feb 17, 2022 Roll Left & Right (QC): 6 Sit to Lying (QC): 6 Lying-Sitting on Side/Bed(QC): 6 Sit to Stand (QC): 6 Chair/Efg-zx-Puuop Xfer(QC): 6 Toilet Transfer (QC): 6 Walk 10 feet (QC): 6 Walk 50ft with 2 Turns (QC): 6 Walk 150 ft (QC): 4 (SBA) PT Plan Treatment/Plan Treatment Plan: Continue Plan of Care Treatment Plan: Bed Mobility, Education, Functional Activity Eliel, Functional Strength, Gait, Safety, Therapeutic Exercise, Transfers Treatment Duration: Feb 17, 2022 Frequency: 6 times per week Estimated Hrs Per Day: .25 hour per day Patient and/or Family Agrees t: Yes Safety Risks/Education Patient Education: Gait Training, Transfer Techniques, Correct Positioning, Safety Issues Teaching Recipient: Patient Teaching Methods: Demonstration, Discussion Response to Teaching: Verbalize Understanding, Return Demonstration, Reinforcement Needed Time Time In: 850 Time Out: 905 DATE: Feb 14, 2022 Total Billed Treatment Time: 15 Total Billed Treatment 1,GT15m ADDISON MICHAELS PHYSICAL SCIENCES INSTRUCTOR Feb 14, 2022 09:16
--- NOTE | 2022-02-14 09:34 | Occupational Ther Daily Note ---
OT Current Status-Daily Note Subjective Pt in recliner, alert. Agrees to therapy. C/o no pain but fatigue. Mental Status/Objective Patient Orientation: Person, Place, Time, Situation Attachments: Gibson Catheter, IV ADL-Treatment Pt ambulated to bathroom prior to entry with PT. See PT notes for assist level. Pt provided tools to complete oral care. Declines oral care at this time until he finishes his coffee. Pt educated on the importance of mobility and educated on UE exercises he can perform while in recliner or bed. Pt verbalized understanding. Pt displays SOA. Performs pursed lip deep breathing without VC's. In recliner post tx with phone/call light in reach. All needs met. Therapy Code Descriptions/Definitions Functional [place] Measure: 0=Not Assessed/NA 4=Minimal Assistance 1=Total Assistance 5=Supervision or Setup 2=Maximal Assistance 6=Modified [place] 3=Moderate Assistance 7=Complete IndependenceSCALE: Activities may be completed with or without assistive devices. 0-Avngcvaywd-pxuawtb completes the activity by him/herself with no assistance from a helper. 5-Set-up or Clean-up Assistance-helper sets up or cleans up; patient completes activity. [place] assists only prior to or following the activity. 4-Supervision or Touching Assistance-helper provides verbal cues and/or touching/steadying and/or contact guard assistance as patient completes activity. Assistance may be provided throughout the activity or intermittently. 3-Partial/Moderate Assistance-helper does LESS THAN HALF the effort. [place] lifts, holds or supports trunk or limbs, but provides less than half the effort. 2-Substantial/Maximal Assistance-helper does MORE THAN HALF the effort. [place] lifts or holds trunk or limbs and provides more than half the effort. 8-Eyrxgruiq-hwlkct does ALL the effort. Patient does none of the effort to complete the activity. Or, the assistance of 2 or more helpers is required for the patient to complete the activity. If activity was not attempted, code reason: 7-Patient Refused. 9-Not Applicable-not attempted and the patient did not perform the activity before the current illness, exacerbation or injury. 10-Not Attempted due to Environmental Limitations-(lack of equipment, weather restraints, etc.). 88-Not Attempted due to Medical Conditions or Safety Concerns. Oral Hygiene (QC): 5 Education OT Patient Education: Exercise program Teaching Recipient: Patient Teaching Methods: Demonstration Response to Teaching: Verbalize Understanding OT [facility] Goals Shuttle Final Inspector Goals Time Frame: Feb 24, 2022 Oral Hygiene (QC): 5 Toileting Hygiene (QC): 4 Shower/Bathe Self (QC): 4 Upper Body Dressing (QC): 4 Lower Body Dressing (QC): 4 On/Off Footwear (QC): 4 Additional Goals: 1-Demonstrate ADL Tasks, 2-Verbalize Understanding, 3-Improv eStrength/Eliel 1=Demonstrate adherence to instructed precautions during ADL tasks. 2=Patient will verbalize/demonstrate understanding of assistive devices/modifications for ADL. 3=Patient will improve strength/tolerance for activity to enable patient to p erform ADL's. OT Education/Plan Problem List/Assessment Assessment: Decreased Activ Tolerance, Decreased UE Strength, Impaired I ADL's, Impaired Self-Care Skills Discharge Recommendations Plan/Recommendations: Continue POC Treatment Plan/Plan of Care Patient would benefit from OT for education, treatment and training to promote independence in ADL's, mobility, safety and/or upper extremity function for ADL' s. Plan of Care: ADL Retraining, Functional Mobility, Group Exercise/Act as Ind, UE Funct Exercise/Act Treatment Duration: Feb 24, 2022 Frequency: 3 times per week (3-5x/week ) Estimated Hrs Per Day: .25 hour per day Rehab Potential: Fair Time Start Time: 09:16 Stop Time: 09:27 DATE: Feb 14, 2022 Total Time Billed (hr/min): 11 Billed Treatment Time 1 FA (11 min) ELIAZAR VIEIRA Feb 14, 2022 09:34
[2022-02-14] MEDS: RT-ALBUTEROL/IPRATROPIUM 3 ML (DUONEB) VIAL INH SCH (09:48)
[2022-02-14] MEDS: LOPERAMIDE 2 MG (IMODIUM) TABLET PO PRN (10:07)
--- NOTE | 2022-02-14 10:14 | Progress Note - Cardiology ---
Cardiology SOAP Progress Note Subjective: Intermittent diarrhea Does not report n/v Denies cp or palp or syncope Shortness of breath is better Gen weakness No focal weakness Objective: I&O/Vital Signs 02/13/22 02/13/22 02/14/22 02/14/22 22:21 23:49 01:00 04:20 Temp 36.5 36.2 Pulse 78 65 77 Resp 18 16 B/P (MAP) 109/57 (74) 128/69 (88) Pulse Ox 94 96 97 O2 Delivery Nasal Cannula Nasal Cannula Nasal Cannula O2 Flow Rate 3.00 3.00 4.00 02/14/22 02/14/22 02/14/22 02/14/22 07:00 07:21 08:00 09:48 Temp 36.6 Pulse 82 84 Resp 18 B/P (MAP) 127/84 (98) Pulse Ox 95 96 O2 Delivery Nasal Cannula Nasal Cannula Nasal Cannula O2 Flow Rate 3.00 2.00 3.00 02/14/22 09:57 Pulse Ox 93 O2 Delivery Nasal Cannula O2 Flow Rate 2.00 02/14/22 00:00 Intake Total 1570 ml Output Total 1100 ml Balance 470 ml Constitutional: AAO x 3, well-developed, well-nourished Respiratory: No accessory muscle use, No respiratory distress; chest expansion is symmetric, chest is bilaterally symmetric, rhonchi (scattered), other (diminished throughout) Cardiovascular: regular rate-rhythm; No JVD; S1 and S2, systolic murmur Gastrointestional: No tender; soft, round, audible bowel sounds Extremities: other (no leg swelling on 02/14/22) Neurologic/Psychiatric: other (moves all limbs) Skin: No rash on exposed areas, No ulcerations on exposed areas; other (friable skin on arms) Results/Procedures: Labs Laboratory Tests 02/13/22 10:36: Glucometer 171H 02/13/22 16:11: Glucometer 214H 02/13/22 19:40: Glucometer 152H 02/14/22 05:54: Glucometer 138H 02/14/22 06:25: White Blood Count 7.5, Red Blood Count 2.82L, Hemoglobin 8.6L, Hematocrit 27L, Mean Corpuscular Volume 97, Mean Corpuscular Hemoglobin 31, Mean Corpuscular Hemoglobin Concent 32, Red Cell Distribution Width 14.5, Platelet Count 217, Mean Platelet Volume 10.2, Immature Granulocyte % (Auto) 4, Neutrophils (%) (Auto) 81H, Lymphocytes (%) (Auto) 4L, Monocytes (%) (Auto) 11, Eosinophils (%) (Auto) 0, Basophils (%) (Auto) 0, Neutrophils # (Auto) 6.0, Lymphocytes # (Auto) 0.3L, Monocytes # (Auto) 0.8, Eosinophils # (Auto) 0.0, Basophils # (Auto) 0.0, Immature Granulocyte # (Auto) 0.3H, Sodium Level 141, Potassium Level 3.7, Chloride Level 100, Carbon Dioxide Level 28, Anion Gap 13, Blood Urea Nitrogen 60H, Creatinine 1.83H, Estimat Glomerular Filtration Rate 37, BUN/Creatinine Ratio 33, Glucose Level 140H, Calcium Level 7.6L, Corrected Calcium 8.3L, Mag[place] sium Level 1.8, Total Bilirubin 0.4, Aspartate Amino Transf (AST/SGOT) 20, Alanine Aminotransferase (ALT/SGPT) 23, Alkaline Phosphatase 59, Total Protein 5.3L, Albumin 3.1L Laboratory Tests 02/13/22 04:09 02/14/22 06:25 Laboratory Tests 02/13/22 04:09 02/14/22 06:25 A/P: Assessment: Diarrhea, dehydration, weakness, and metabolic acidosis of undetermined etiology - improving but diarrhea has not resolved completely - volume overloaded on physical exam of 02/13/22; appears euvolemic on physical exam on 02/14/22 COPD - management per medical/eICU services Acute on chronic renal disease (CKD 4) - reports follows with nephrology at [facility] in [place] PAF - BB for rate control - rate not well controlled on 02-12-22 - Cardizem CD added - converted to SR on 02-13-22 - OAC with Eliquis (low dose d/t renal dz) - Echo on 02/10/22: LVEF 55-60%, AoV sclerosis w/o stenosis and with trivial AI, mild MR, PASP 45-50 mmHg H/O AAA repair approx 8 yrs ago - reports h/o re-do AAA repair with endo-graft x 2 approx 2 months ago in [facility] H/O pituitary tumor (benign) 11 yrs ago Hyperthyroidisim - according to lab of 02-10-22 (TSH 0.00) Anxiety Noc hypoxia - oxygen at 2.5 L/NC at hs H/O tobaccoism - quit 5 yrs ago after a 45-50 yr smoking history Anemia of undetermined etiology - management per medical services Plan: * Converted to SR * Eliquis for stroke prophylaxis * Hospitalist svce managing ac exac of COPD, diarrhea, and weakness * Monitor labs * Anemia of undermined etiology - management per medical services * Cardiac status appears stable. Ok for d/c from cardiac standpoint (on current regimen) when otherwise ok. He is to f/u with his catheter finisher and inspector in [place], KAYLENE Levine MD FACP FAC CCDS Feb 14, 2022 10:14
[2022-02-14 11:09] VITALS: BP 128/58
--- NOTE | 2022-02-14 12:15 | Progress Note ---
PEREZJULIAN 02/14/22 1215: Subjective Date Seen by a Provider: Feb 14, 2022 Time Seen by a Provider: 11:45 Subjective/Events-last exam This is a 81yoWM clinic patient of Dr. Toussaint who presented to the [facility] ER on 02/09/22 with weakness and inability to walk and was transferred here to [facility] for need of higher level care. He had come to [facility] ER on 02/07/22 for weakness and diarrhea and had a stable w/u in labs at that time so he was sent home but came back 02/09/22 with worsened symptoms and was found to have hypovolemic shock requiring aggressive IVF and Levophed for a short time along with biPAP. His creat was 3.3 at that time and baseline is 1.8 and he had oliguria but started to produce urine on 02/09/22. Dr. Og knows him from prior admit when he was diagnosed with pancreatic mass sent to Dr Richards s/p biopsies that were benign. He also has hypopituitarism and is on Prednisone and thyroid medications. Hydrocortisone IV was ordered along with aggressive IVF. Central line was placed by Dr. Gillette on 02/09/22. CXR on 02/09/22 with bibasilar infiltrates. Antibiotics were initiated for pneumonia, Cefepime and Vancomycin empirically. CXR 02/13/22 was improved with decrease in basilar infiltrate. Dr. Crowley, turning machine operator, followed the patient during his stay. Echo on 02/10/22 showed LVEF 55-60%, AoV s clerosis w/o stenosis and with trivial AI, mild MR, PASP 45-50 mmHg. Eliquis was maintained at his reduced dosing of 2.5mg BID for atrial fibrillation. He was also started on beta olegario, metoprolol, for rate control. He converted to sinus rhythm on 02/13/22 with the addition of Cardizem CD. Cardiology recommends he stay on this regimen as he is currently stable and follow with his primary turning machine operator Dr. Mckenna at [facility]. Patient was moved to the med/surg floor from the ICU 02/13/22. He is currently on 3L of oxygen via NC and O2 sats are stable, he does typically wear oxygen at home hs, 2.5L via NC. His kidney function is now back to his baseline with creatinine of 1.83. Diarrhea has been controlled with anti-diarrheal as needed. His peripheral edema improved today. He will be discharged to [facility] bed today. Eventually he plans to stay with his daughter in [place], [place]. Review of Systems HEENT: No Head Aches Pulmonary: Dyspnea Cardiovascular: No: Chest Pain Gastrointestinal: No: Nausea, Vomiting, Abdominal Pain Neurological: No: Numbness Focused Exam Lactate Level 02/13/22 04:09: Lactic Acid Level 1.53 Objective Exam Last Set of Vital Signs Vital Signs Date Time Temp Pulse Resp B/P (MAP) Pulse Ox O2 Delivery O2 Flow Rate FiO2 02/14/22 11:09 36.9 92 18 128/58 (81) 92 Nasal Cannula 3.00 Capillary Refill : I&O Intake and Output 02/14/22 00:00 Intake Total 1860 ml Output Total 1650 ml Balance 210 ml Intake Oral 1010 ml IV Total 850 ml Output Urine Total 1650 ml # Bowel Movements 2 General: Alert, Oriented X3, Cooperative, No Acute Distress HEENT: PERRLA, Mucous Memb Moist/Vancleave Neck: No JVD Lungs: Other (diminished throughout) Heart: Regular Rate, Normal S1, Normal S2 Abdomen: Soft, No Tenderness Extremities: Other (1+ edema b/l LE - improved) Skin: No Significant Lesion Neuro: Normal Speech Psych/Mental Status: Mental Status NL, Mood NL Results Lab Laboratory Tests 02/13/22 16:11: Glucometer 214H 02/13/22 19:40: Glucometer 152H 02/14/22 05:54: Glucometer 138H 02/14/22 06:25: White Blood Count 7.5, Red Blood Count 2.82L, Hemoglobin 8.6L, Hematocrit 27L, Mean Corpuscular Volume 97, Mean Corpuscular Hemoglobin 31, Mean Corpuscular Hemoglobin Concent 32, Red Cell Distribution Width 14.5, Platelet Count 217, Mean Platelet Volume 10.2, Immature Granulocyte % (Auto) 4, Neutrophils (%) ( Auto) 81H, Lymphocytes (%) (Auto) 4L, Monocytes (%) (Auto) 11, Eosinophils (%) (Auto) 0, Basophils (%) (Auto) 0, Neutrophils # (Auto) 6.0, Lymphocytes # (Auto) 0.3L, Monocytes # (Auto) 0.8, Eosinophils # (Auto) 0.0, Basophils # (Auto) 0.0, Immature Granulocyte # (Auto) 0.3H, Sodium Level 141, Potassium Level 3.7, Chloride Level 100, Carbon Dioxide Level 28, Anion Gap 13, Blood Urea Nitrogen 60H, Creatinine 1.83H, Estimat Glomerular Filtration Rate 37, BUN/Creatinine Ratio 33, Glucose Level 140H, Calcium Level 7.6L, Corrected Calcium 8.3L, Magnesium Level 1.8, Total Bilirubin 0.4, Aspartate Amino Transf (AST/SGOT) 20, Alanine Aminotransferase (ALT/SGPT) 23, Alkaline Phosphatase 59, Total Protein 5.3L, Albumin 3.1L 02/14/22 11:09: Glucometer 192H Assessment/Plan Assessment/Plan Assess & Plan/Chief Complaint Assessment/Plan: Hypovolemic shock from recent diarrhea - continue antidiarrheal as needed Oliguria - improved, remove catheter today ISREAL on CKD - kidney function at pt baseline 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 100mg IV Q6 hours PNA- empiric vanc and cefepime Pulmonary edema on CXR - improved Chronic AF - metoprolol, cardizem managed by cardiology OAC maintained on reduced dose HTN HLP COPD GERD AAA Pancreatic mass managed by Dr Richards- biopsy was benign Plan to move to [facility] bed upon d/c today LATISHA OG DO 02/15/22 0617: Supervisory-Addendum Brief Verification & Attestation Participated in pt care: history, MDM, physical Personally performed: exam, history, MDM, supervision of care Care discussed with: Medical Student Procedures: n/a Results interpretation: Verified all documentation Verification and Attestation of Medical Student E/M Service A medical student performed and documented this service in my presence. I reviewed and verified all information documented by the medical student and made modifications to such information, when appropriate. I personally performed the physical exam and medical decision making. Latisha Og Feb 15, 2022,06:17 JULIAN PEREZ Feb 14, 2022 12:15 LATISHA OG DO Feb 15, 2022 06:17
[2022-02-14] MEDS ORDERED: APIX2.5T PO (15:45)
[2022-02-14] MEDS ORDERED: LOPE2CAP PO (15:45)
[2022-02-14] MEDS ORDERED: Lorazepam PO (15:45)
[2022-02-14] MEDS ORDERED: IPRA3AMP31 INH (15:45)
[2022-02-14] MEDS ORDERED: DILT240C91 PO (15:45)
--- NOTE | 2022-02-14 15:46 | Discharge Inst-Skilled Nursing ---
Discharge Inst-Skilled NF Reconcile Patient Problems Problems Reviewed?: Yes Chief Complaint CC: Hypovolemic shock HPI: This is a 81yoWM clinic patient of Dr Toussaint who presented to the [facility] ER with weakness and inability to walk. He had come to [facility] ER on 02/07/22 for weakness and diarrhea and had a stable w/u in labs at that time so he was sent home but came back today with worsened symptoms and found to have hypovolemic shock requiring aggressive IVF and Levophed for a short time along with biPAP. His creat was 3.3 and baseline is 1.8 and had oliguria but just now starting to produce urine. I know him from prior admit when he was diagnosed with pancreatic mass sent to Dr Richards s/p biopsies of unknown result. 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 Abx was initiated of Cefepime and Vanc empirically. Hydrocortisone IV will be ordered along with aggressive IVF. Central line will be needed and I did consult Dr Gillette and he is aware along with consultation with Dr Crowley and he will see patient. Eliquis will be maintained at his reduced Eliquis dosing of 2.5mg PO BID. 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 History of neoplasm of pituitary gland Z86.03 Active Hyperlipidemia E78.5 Active COVID-19 U07.1 Historic Hyperlipidemia, unspecified E78.5 Active Adrenal insufficiency E27.40 10/25/2021 Historic 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 10/25/2021 Historic Chronic kidney disease N18.9 10/25/2021 Historic Pancreatic mass K86.89 10/25/2021 Historic Abdominal aortic aneurysm I71.4 10/25/2021 Historic Mitral regurgitation I34.0 10/25/2021 Historic Acute gastroenteritis K52.9 Active Past Surgical History: Surgery List 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 Drinks 2-3 glasses of vodka 3 times a week. No drug use. Smoking Status: Smoking Status: Former smoker, Cessation Education: Allergy List NSAID, medication BEE VENOM, medication WASP VENOM, medication PEN-VK, medication Patient Instructions Patient Problems: debility Consult/Follow Up/Orders Follow Up Appt.: PCP Skilled NF Admit to: [facility] Certification (SNF) I certify that SNF services are required to be given on an inpatient basis because of the above named patient's need for group home care on a continuing basis for the conditions(s) for which he/she was receiving inpatient hospital services prior to his/her transfer to the SNF. [facility] Facility Order: Nursing Services, Patcher Helper-Evaluate & Treat, Physical Therapy-Evaluate & Treat Oxygen Delivery Method: Nasal Cannula Discharge Diet: No Restrictions Daily Activity as Tolerated: Yes Resuscitation Status: Do Not Resuscitate New & Resume Previous Orders New Medications: Apixaban (Eliquis) 2.5 Mg Tablet 2.5 MG PO BID for 14 Days, TAB Diltiazem HCl (Diltiazem 24Hr ER) 240 Mg Cap.er.24h 240 MG PO DAILY for 7 Days Ipratropium/Albuterol Sulfate (Iprat-Albut 0.5-3(2.5) mg/3 ml) 0.5 Mg-3 Mg (2.5 Mg Base)/3 Ml Ampul.neb 3 ML INH RTBID for 7 Days, INHALER Loperamide HCl (Loperamide) 2 Mg Capsule 2 MG PO Q3HR PRN for LOOSE STOOLS for 7 Days, CAP [Lorazepam] () 0.5 MG TABLET 0.5 MG PO Q4H PRN for ANXIETY for 7 Days, TAB Continued Medications: Albuterol Sulfate (Ventolin Hfa) 90 Mcg Hfa.aer.ad 1 PUFF INH Q4H PRN for SHORTNESS OF BREATH, EA Alprazolam (Alprazolam) 1 Mg Tablet 1 MG PO HS, TAB Atorvastatin Calcium (Atorvastatin Calcium) 20 Mg Tablet 20 MG PO HS, TAB Doxepin HCl (Doxepin HCl) 25 Mg Capsule 25 MG PO HS PRN for SLEEP, CAP Fluticasone Propionate (Flonase Allergy Relief) 50 Mcg/Actuation [place].susp 1 SPRAY NS DAILY PRN for CONGESTION, EACH Folic Acid (Folic Acid) 1 Mg Tablet 1 MG PO DAILY, TAB Furosemide (Furosemide) 20 Mg Tablet 20 MG PO DAILY PRN for FLUID RETENTION, TAB Levothyroxine Sodium (Levothyroxine Sodium) 125 Mcg Tablet 125 MCG PO DAILY, TAB Metoprolol Succinate (Metoprolol Succinate) 50 Mg Tab.er.24h 25 MG PO BID, TAB TAKES OF A 50MG TABLET Pantoprazole Sodium (Pantoprazole Sodium) 40 Mg Tablet.dr 40 MG PO DAILY, TAB Prednisone (Prednisone) 10 Mg Tab 10 MG PO DAILY, TAB Latisha Og Feb 14, 2022 15:45 LATISHA OG DO Feb 14, 2022 15:46
--- NOTE | 2022-02-14 15:46 | Discharge Summary ---
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: Yes This is a 81yoWM clinic patient of Dr. Toussaint who [place] [facility] [place]22 with weakness and inability to walk and was transferred here to [place] for need of higher level care. He had come [place] [facility] on 02/07/22 for weakness and diarrhea and had a stable w/u in labs at that time so he was sent home but came back 02/09/22 with worsened symptoms and was found to have hypov olemic shock requiring aggressive IVF and Levophed for a short time along with biPAP. His creat was 3.3 at that time and baseline is 1.8 and he had oliguria but started to produce urine on 02/09/22. Dr. Og knows him from prior admit when he was diagnosed with pancreatic mass sent to Dr Richards s/p biopsies that were benign. He also has hypopituitarism and is on Prednisone and thyroid medications. Hydrocortisone IV was ordered along with aggressive IVF. Central line was placed by Dr. Gillette on 02/09/22. CXR on 02/09/22 with bibasilar infiltrates. Antibiotics were initiated for pneumonia, Cefepime and Vancomycin empirically. CXR 02/13/22 was improved with decrease in basilar infiltrate. Dr. Crowley, facilities operator, followed the patient during his stay. Echo on 02/10/22 showed LVEF 55-60%, AoV sclerosis w/o stenosis and with trivial AI, mild MR, PASP 45-50 mmHg. Eliquis was maintained at his reduced dosing of 2.5mg BID for atrial fibrillation. He was also started on beta olegario, metoprolol, for rate control. He converted to sinus rhythm on 02/13/22 with the addition of Cardizem CD. Cardiology recommends he stay on this regimen as he is currently stable and follow with his primary facilities operator Dr. Mckenna at [place]. Patient was moved to the med/surg floor from the ICU 02/13/22. He is currently on 3L of oxygen via NC and O2 sats are stable, he does typically wear oxygen at home hs, 2.5L via NC. His kidney function is now back to his baseline with creatinine of 1.83. Diarrhea has been controlled with anti-diarrheal as needed. His peripheral edema improved today. He will be discharged to [facility] bed today. Eventually he plans to stay with his daughter in [place], [place]. Labs (last 24 hrs) Laboratory Tests 02/09/22 21:25: White Blood Count 18.5H, Red Blood Count 3.41L, Hemoglobin 11.1L, Hematocrit 34L , Mean Corpuscular Volume 101H, Mean Corpuscular Hemoglobin 33, Mean Corpuscular Hemoglobin Concent 32, Red Cell Distribution Width 14.0, Platelet Count 240, Mean Platelet Volume 9.1, Immature Granulocyte % (Auto) 1, Neutrophils (%) (Auto) 95H, Lymphocytes (%) (Auto) 1L, Monocytes (%) (Auto) 3, Eosinophils (%) (Auto) 0, Basophils (%) (Auto) 0, Neutrophils # (Auto) 17.6H, Lymphocytes # (Auto) 0.2L, Monocytes # (Auto) 0.5, Eosinophils # (Auto) 0.1, Basophils # (Auto) 0.0, Immature Granulocyte # (Auto) 0.2H, Neutrophils % (Manual) 95, Lymphocytes % (Manual) 3, Monocytes % (Manual) 2, Polychromasia MARKED, Sodium Level 134L, Potassium Level 5.8H, Chloride Level 105, Carbon Dioxide Level 15L, Anion Gap 14, Blood Urea Nitrogen 27H, Creatinine 2.66H, Estimat Glomerular Filtration Rate 24, BUN/Creatinine Ratio 10, Glucose Level 158H, Lactic Acid Level 1.43, Calcium Level 7.7L, Corrected Calcium 8.6, Total Bilirubin 0.7, Aspartate Amino Transf (AST/SGOT) 73H, Alanine Aminotransferase (ALT/SGPT) 32, Alkaline Phosphatase 65, Total Protein 5.0L, Albumin 2.9L, Procalcitonin 4.04H, Thyroid Stimulating Hormone (TSH) 0.00L, Free Thyroxine 1.02 02/09/22 22:10: Blood Gas Puncture Site LEFT RADIAL, Blood Gas Patient Temperature 35.9, Arterial Blood pH 7.20*L, Arterial Blood Partial Pressure CO2 47H, Arterial Blood Partial Pressure O2 32*L, Arterial Blood HCO3 18L, Arterial Blood Total CO2 19.4L, Arterial Blood Oxygen Saturation 54L, Arterial Blood Base Excess - 9.0L, Nickolas Test YES-POS, Blood Gas Ventilator Setting NO, Blood Gas Inspired Oxygen NA 02/09/22 23:27: Glucometer 160H 02/10/22 05:27: White Blood Count 18.7H, Red Blood Count 3.36L, Hemoglobin 10.4L, Hematocrit 33L , Mean Corpuscular Volume 98, Mean Corpuscular Hemoglobin 31, Mean Corpuscular Hemoglobin Concent 32, Red Cell Distribution Width 13.8, Platelet Count 252, Mean Platelet Volume 9.4, Immature Granulocyte % (Auto) 1, Neutrophils (%) (Auto) 95H, Lymphocytes (%) (Auto) 1L, Monocytes (%) (Auto) 3, Eosinophils (%) (Auto) 0, Basophils (%) (Auto) 0, Neutrophils # (Auto) 17.8H, Lymphocytes # (Auto) 0.2L, Monocytes # (Auto) 0.5, Eosinophils # (Auto) 0.0, Basophils # (Auto) 0.0, Immature Granulocyte # (Auto) 0.2H, Sodium Level 134L, Potassium Level 5.4H, Chloride Level 107, Carbon Dioxide Level 15L, Anion Gap 12, Blood Urea Nitrogen 31H, Creatinine 2.61H, Estimat Glomerular Filtration Rate 24, BU N/Creatinine Ratio 12, Glucose Level 153H, Calcium Level 7.5L, Corrected Calcium 8.5, Total Bilirubin 0.5, Aspartate Amino Transf (AST/SGOT) 61H, Alanine Aminotransferase (ALT/SGPT) 29, Alkaline Phosphatase 63, Total Protein 4.9L, Albumin 2.7L, Procalcitonin 4.00H, Phosphorus Level 4.8H, Magnesium Level 1.6 02/10/22 10:30: Blood Gas Puncture Site NA, Blood Gas Patient Temperature 37.0, Arterial Blood pH 7.20*L, Arterial Blood Partial Pressure CO2 33L, Arterial Blood Partial Pressure O2 85, Arterial Blood HCO3 13*L, Arterial Blood Total CO2 13.7L, Arterial Blood Oxygen Saturation 96, Arterial Blood Base Excess -13.8L, Nickolas Test NA, Blood Gas Ventilator Setting NO, Blood Gas Inspired Oxygen NA 02/10/22 10:51: Glucometer 190H 02/10/22 15:40: Sodium Level 134L, Potassium Level 4.6, Chloride Level 104, Carbon Dioxide Level 18L, Anion Gap 12, Blood Urea Nitrogen 36H, Creatinine 2.66H, Estimat Glomerular Filtration Rate 24, BUN/Creatinine Ratio 14, Glucose Level 242H, Lactic Acid Level 2.92*H, Calcium Level 7.3L 02/10/22 15:43: Glucometer 228H 02/10/22 20:40: Glucometer 248H 02/10/22 23:00: Sodium Level 134L, Potassium Level 3.8, Chloride Level 102, Carbon Dioxide Level 18L, Anion Gap 14, Blood Urea Nitrogen 40H, Creatinine 2.59H, Estimat Glomerular Filtration Rate 24, BUN/Creatinine Ratio 15, Glucose Level 293H, Calcium Level 6.9L 02/11/22 01:09: Glucometer 299H 02/11/22 03:45: Sodium Level 135, Potassium Level 3.8, Chloride Level 100, Carbon Dioxide Level 21, Anion Gap 14, Blood Urea Nitrogen 41H, Creatinine 2.44H, Estimat Glomerular Filtration Rate 26, BUN/Creatinine Ratio 17, Glucose Level 288H, Calcium Level 6.8L, White Blood Count 13.7H, Red Blood Count 2.69L, Hemoglobin 8.4L, Hematocrit 26L, Mean Corpuscular Volume 96, Mean Corpuscular Hemoglobin 31, Mean Corpuscular Hemoglobin Concent 33, Red Cell Distribution Width 14.1, Platelet Count 184, Mean Platelet Volume 9.6, Immature Granulocyte % (Auto) 1, Neutrophils (%) (Auto) 94H, Lymphocytes (%) (Auto) 0L, Monocytes (%) (Auto) 5, Eosinophils (%) (Auto) 0, Basophils (%) (Auto) 0, Neutrophils # (Auto) 12.9H, Lymphocytes # (Auto) 0.1L, Monocytes # (Auto) 0.6, Eosinophils # (Auto) 0.0, Ba sophils # (Auto) 0.0, Immature Granulocyte # (Auto) 0.1, Lactic Acid Level 4.02*H, Corrected Calcium 8.0L, Phosphorus Level 2.9, Magnesium Level 1.9, Total Bilirubin 0.3, Aspartate Amino Transf (AST/SGOT) 37H, Alanine Aminotransferase (ALT/SGPT) 23, Alkaline Phosphatase 58, Total Protein 4.5L, Albumin 2.5L 02/11/22 03:50: Blood Gas Puncture Site LEFT RADIAL, Blood Gas Patient Temperature 37, Arterial Blood pH 7.41, Arterial Blood Partial Pressure CO2 36, Arterial Blood Partial Pressure O2 80, Arterial Blood HCO3 23, Arterial Blood Total CO2 24.0, Arterial Blood Oxygen Saturation 97, Arterial Blood Base Excess -1.1, Nickolas Test YES-POS, Blood Gas Ventilator Setting NO, Blood Gas Inspired Oxygen 2L 02/11/22 11:33: Glucometer 197H 02/11/22 15:41: Glucometer 205H 02/11/22 16:36: Sodium Level 138, Potassium Level 3.5L, Chloride Level 99, Carbon Dioxide Level 25, Anion Gap 14, Blood Urea Nitrogen 47H, Creatinine 2.19H, Estimat Glomerular Filtration Rate 30, BUN/Creatinine Ratio 21, Glucose Level 207H, Calcium Level 7.2L 02/11/22 20:26: Glucometer 203H 02/12/22 03:32: White Blood Count 6.1, Red Blood Count 4.09L, Hemoglobin 12.5#L, Hematocrit 38L, Mean Corpuscular Volume 93, Mean Corpuscular Hemoglobin 31, Mean Corpuscular Hemoglobin Concent 33, Red Cell Distribution Width 14.2, Platelet Count 114L, Mean Platelet Volume 10.1, Immature Granulocyte % (Auto) 0, Neutrophils (%) (Auto) 94H, Lymphocytes (%) (Auto) 1L, Monocytes (%) (Auto) 5, Eosinophils (%) (Auto) 0, Basophils (%) (Auto) 0, Neutrophils # (Auto) 5.7, Lymphocytes # (Auto) 0.1L, Monocytes # (Auto) 0.3, Eosinophils # (Auto) 0.0, Basophils # (Auto) 0.0, Immature Granulocyte # (Auto) 0.0, Percent Immature Platelet Fraction 2.3, Sodium Level 136, Potassium Level 3.6, Chloride Level 96L, Carbon Dioxide Level 27, Anion Gap 13, Blood Urea Nitrogen 48H, Creatinine 2.08H, Estimat Glomerular Filtration Rate 32, BUN/Creatinine Ratio 23, Glucose Level 196H, Calcium Level 7.0L, Corrected Calcium 8.0L, Phosphorus Level 1.7L, Magnesium Level 1.9, Total Bilirubin 0.2, Aspartate Amino Transf (AST/SGOT) 23, Alanine Aminotransferase (ALT/SGPT) 23, Alkaline Phosphatase 52, Total Protein 4.6L, Albumin 2.7L 02/12/22 03:35: Blood Gas Puncture Site LEFT RADIAL, Blood Gas Patient Temperature 36.9, Arterial Blood pH 7.47H, Arterial Blood Partial Pressure CO2 42, Arterial Blood Partial Pressure O2 77L, Arterial Blood HCO3 31H, Arterial Blood Total CO2 32.0H , Arterial Blood Oxygen Saturation 97, Arterial Blood Base Excess 6.8H, Nickolas Test YES-POS, Blood Gas Ventilator Setting NO, Blood Gas Inspired Oxygen NA 02/12/22 09:42: White Blood Count 10.7, Red Blood Count 2.91L, Hemoglobin 8.8#L, Hematocrit 28L, Mean Corpuscular Volume 95, Mean Corpuscular Hemoglobin 30, Mean Corpuscular Hemoglobin Concent 32, Red Cell Distribution Width 14.3, Platelet Count 169, Bety n Platelet Volume 9.7, Immature Granulocyte % (Auto) 1, Neutrophils (%) (Auto) 92H, Lymphocytes (%) (Auto) 2L, Monocytes (%) (Auto) 5, Eosinophils (%) (Auto) 0, Basophils (%) (Auto) 0, Neutrophils # (Auto) 9.9H, Lymphocytes # (Auto) 0.2L, Monocytes # (Auto) 0.5, Eosinophils # (Auto) 0.0, Basophils # (Auto) 0.0, Immature Granulocyte # (Auto) 0.1 02/12/22 11:01: Glucometer 166H 02/12/22 15:48: Glucometer 161H 02/12/22 20:23: Glucometer 179H 02/13/22 04:09: White Blood Count 10.4, Red Blood Count 2.76L, Hemoglobin 8.5L, Hematocrit 27L, Mean Corpuscular Volume 97, Mean Corpuscular Hemoglobin 31, Mean Corpuscular Hemoglobin Concent 32, Red Cell Distribution Width 14.5, Platelet Count 180, Mean Platelet Volume 10.1, Immature Granulocyte % (Auto) 1, Neutrophils (%) (Auto) 91H, Lymphocytes (%) (Auto) 2L, Monocytes (%) (Auto) 7, Eosinophils (%) (Auto) 0, Basophils (%) (Auto) 0, Neutrophils # (Auto) 9.4H, Lymphocytes # (Auto) 0.2L, Monocytes # (Auto) 0.7, Eosinophils # (Auto) 0.0, Basophils # (Auto) 0.0, Immature Granulocyte # (Auto) 0.1, Sodium Level 138, Potassium Level 4.3, Chloride Level 97L, Carbon Dioxide Level 29, Anion Gap 12, Blood Urea Nitrogen 56H, Creatinine 1.94H, Estimat Glomerular Filtration Rate 35, BUN/Creatinine Ratio 29, Glucose Level 161H, Lactic Acid Level 1.53, Calcium Level 7.3L, Corrected Calcium 8.2L, Phosphorus Level 2.8, Magnesium Level 1.8, Total Bilirubin 0.2, Aspartate Amino Transf (AST/SGOT) 22, Alanine Aminotransferase (ALT/SGPT) 21, Alkaline Phosphatase 61, Total Protein 5.1L, Albumin 2.9L 02/13/22 10:36: Glucometer 171H 02/13/22 16:11: Glucometer 214H 02/13/22 19:40: Glucometer 152H 02/14/22 05:54: Glucometer 138H 02/14/22 06:25: White Blood Count 7.5, Red Blood Count 2.82L, Hemoglobin 8.6L, Hematocrit 27L, Mean Corpuscular Volume 97, Mean Corpuscular Hemoglobin 31, Mean Corpuscular Hemoglobin Concent 32, Red Cell Distribution Width 14.5, Platelet Count 217, Mean Platelet Volume 10.2, Immature Granulocyte % (Auto) 4, Neutrophils (%) (Auto) 81H, Lymphocytes (%) (Auto) 4L, Monocytes (%) (Auto) 11, Eosinophils (%) (Auto) 0, Basophils (%) (Auto) 0, Neutrophils # (Auto) 6.0, Lymphocytes # (Auto) 0.3L, Monocytes # (Auto) 0.8, Eosinophils # (Auto) 0.0, Basophils # (Auto) 0.0, Immature Granulocyte # (Auto) 0.3H, Sodium Level 141, Potassium Level 3.7, Chloride Level 100, Carbon Dioxide Level 28, Anion Gap 13, Blood Urea Nitrogen 60H, Creatinine 1.83H, Estimat Glomerular Filtration Rate 37, BUN/Creatinine Ratio 33, Glucose Level 140H, Calcium Level 7.6L, Corrected Calcium 8.3L, Magnesium Level 1.8, Total Bilirubin 0.4, Aspartate Amino Transf (AST/SGOT) 20, Alanine Aminotransferase (ALT/SGPT) 23, Alkaline Phosphatase 59, Total Protein 5.3L, Albumin 3.1L 02/14/22 11:09: Glucometer 192H 02/14/22 15:48: Glucometer 182H Pending Labs Laboratory Tests 02/09/22 21:25: White Blood Count 18.5, Red Blood Count 3.41, Hemoglobin 11.1, Hematocrit 34, Mean Corpuscular Volume 101, Mean Corpuscular Hemoglobin 33, Mean Corpuscular Hemoglobin Concent 32, Red Cell Distribution Width 14.0, Platelet Count 240, Mean Platelet Volume 9.1, Immature Granulocyte % (Auto) 1, Neutrophils (%) (Auto) 95, Lymphocytes (%) (Auto) 1, Monocytes (%) (Auto) 3, Eosinophils (%) (Auto) 0, Basophils (%) (Auto) 0, Neutrophils # (Auto) 17.6, Lymphocytes # (Auto) 0.2, Monocytes # (Auto) 0.5, Eosinophils # (Auto) 0.1, Basophils # (Auto) 0.0, Immature Granulocyte # (Auto) 0.2, Neutrophils % (Manual) 95, Lymphocytes % (Manual) 3, Monocytes % (Manual) 2, Polychromasia MARKED, Sodium Level 134, Potassium Level 5.8, Chloride Level 105, Carbon Dioxide Level 15, Anion Gap 14, Blood Urea Nitrogen 27, Creatinine 2.66, Estimat Glomerular Filtration Rate 24, BUN/Creatinine Ratio 10, Glucose Level 158, Lactic Acid Level 1.43, Calcium Level 7.7, Corrected Calcium 8.6, Total Bilirubin 0.7, Aspartate Amino Transf (AST/SGOT) 73, Alanine Aminotransferase (ALT/SGPT) 32, Alkaline Phosphatase 65, Total Protein 5.0, Albumin 2.9, Procalcitonin 4.04, Thyroid Stimulating Hormone (TSH) 0.00, Free Thyroxine 1.02 02/09/22 22:10: Blood Gas Puncture Site LEFT RADIAL, Blood Gas Patient Temperature 35.9, Arterial Blood pH 7.20, Arterial Blood Partial Pressure CO2 47, Arterial Blood Partial Pressure O2 32, Arterial Blood HCO3 18, Arterial Blood Total CO2 19.4, Arterial Blood Oxygen Saturation 54, Arterial Blood Base Excess -9.0, Nickolas Test YES-POS, Blood Gas Ventilator Setting NO, Blood Gas Inspired Oxygen NA 02/09/22 23:27: Glucometer 160 02/10/22 05:27: White Blood Count 18.7, Red Blood Count 3.36, Hemoglobin 10.4, Hematocrit 33, Mean Corpuscular Volume 98, Mean Corpuscular Hemoglobin 31, Mean Corpuscular Hemoglobin Concent 32, Red Cell Distribution Width 13.8, Platelet Count 252, Mean Platelet Volume 9.4, Immature Granulocyte % (Auto) 1, Neutrophils (%) (Auto) 95, Lymphocytes (%) (Auto) 1, Monocytes (%) (Auto) 3, Eosinophils (%) (Auto) 0, Basophils (%) (Auto) 0, Neutrophils # (Auto) 17.8, Lymphocytes # (Auto) 0.2, Monocytes # (Auto) 0.5, Eosinophils # (Auto) 0.0, Basophils # (Auto) 0.0, Immature Granulocyte # (Auto) 0.2, Sodium Level 134, Potassium Level 5.4, Chloride Level 107, Carbon Dioxide Level 15, Anion Gap 12, Blood Urea Nitrogen 31, Creatinine 2.61, Estimat Glomerular Filtration Rate 24, BUN/Creatinine Ratio 12, Glucose Level 153, Calcium Level 7.5, Corrected Calcium 8.5, Total Bilirubin 0.5, Aspartate Amino Transf (AST/SGOT) 61, Alanine Aminotransferase (ALT/SGPT) 29, Alkaline Phosphatase 63, Total Protein 4.9, Albumin 2.7, Procalcitonin 4.00, Phosphorus Level 4.8, Magnesium Level 1.6 02/10/22 10:30: Blood Gas Puncture Site NA, Blood Gas Patient Temperature 37.0, Arterial Blood pH 7.20, Arterial Blood Partial Pressure CO2 33, Arterial Blood Partial Pressure O2 85, Arterial Blood HCO3 13, Arterial Blood Total CO2 13.7, Arterial Blood Oxygen Saturation 96, Arterial Blood Base Excess -13.8, Nickolas Test NA, Blood Gas Ventilator Setting NO, Blood Gas Inspired Oxygen NA 02/10/22 10:51: Glucometer 190 02/10/22 15:40: Sodium Level 134, Potassium Level 4.6, Chloride Level 104, Carbon Dioxide Level 18, Anion Gap 12, Blood Urea Nitrogen 36, Creatinine 2.66, Estimat Glomerular Filtration Rate 24, BUN/Creatinine Ratio 14, Glucose Level 242, Lactic Acid Level 2.92, Calcium Level 7.3 02/10/22 15:43: Glucometer 228 02/10/22 20:40: Glucometer 248 02/10/22 23:00: Sodium Level 134, Potassium Level 3.8, Chloride Level 102, Carbon Dioxide Level 18, Anion Gap 14, Blood Urea Nitrogen 40, Creatinine 2.59, Estimat Glomerular Filtration Rate 24, BUN/Creatinine Ratio 15, Glucose Level 293, Calcium Level 6.9 02/11/22 01:09: Glucometer 299 02/11/22 03:45: Sodium Level 135, Potassium Level 3.8, Chloride Level 100, Carbon Dioxide Level 21, Anion Gap 14, Blood Urea Nitrogen 41, Creatinine 2.44, Estimat Glomerular Filtration Rate 26, BUN/Creatinine Ratio 17, Glucose Level 288, Calcium Level 6.8, White Blood Count 13.7, Red Blood Count 2.69, Hemoglobin 8.4, Hematocrit 26, Mean Corpuscular Volume 96, Mean Corpuscular Hemoglobin 31, Mean Corpuscular Hemoglobin Concent 33, Red Cell Distribution Width 14.1, Platelet Count 184, Mean Platelet Volume 9.6, Immature Granulocyte % (Auto) 1, Neutrophils (%) (Auto) 94, Lymphocytes (%) (Auto) 0, Monocytes (%) (Auto) 5, Eosinophils (%) (Auto) 0, Basophils (%) (Auto) 0, Neutrophils # (Auto) 12.9, Lymphocytes # (Auto) 0.1, Monocytes # (Auto) 0.6, Eosinophils # (Auto) 0.0, Basophils # (Auto) 0.0, Immature Granulocyte # (Auto) 0.1, Lactic Acid Level 4.02, Corrected Calcium 8.0, Phosphorus Level 2.9, Magnesium Level 1.9, Total Bilirubin 0.3, Aspartate Amino Transf (AST/SGOT) 37, Alanine Aminotransferase (ALT/SGPT) 23, Alkaline Phosphatase 58, Total Protein 4.5, Albumin 2.5 02/11/22 03:50: Blood Gas Puncture Site LEFT RADIAL, Blood Gas Patient Temperature 37, Arterial Blood pH 7.41, Arterial Blood Partial Pressure CO2 36, Arterial Blood Partial Pressure O2 80, Arterial Blood HCO3 23, Arterial Blood Total CO2 24.0, Arterial Blood Oxygen Saturation 97, Arterial Blood Base Excess -1.1, Nickolas Test YES-POS, Blood Gas Ventilator Setting NO, Blood Gas Inspired Oxygen 2L 02/11/22 11:33: Glucometer 197 02/11/22 15:41: Glucometer 205 02/11/22 16:36: Sodium Level 138, Potassium Level 3.5, Chloride Level 99, Carbon Dioxide Level 25, Anion Gap 14, Blood Urea Nitrogen 47, Creatinine 2.19, Estimat Glomerular Filtration Rate 30, BUN/Creatinine Ratio 21, Glucose Level 207, Calcium Level 7.2 02/11/22 20:26: Glucometer 203 02/12/22 03:32: White Blood Count 6.1, Red Blood Count 4.09, Hemoglobin 12.5, Hematocrit 38, M dm Corpuscular Volume 93, Mean Corpuscular Hemoglobin 31, Mean Corpuscular Hemoglobin Concent 33, Red Cell Distribution Width 14.2, Platelet Count 114, Mean Platelet Volume 10.1, Immature Granulocyte % (Auto) 0, Neutrophils (%) (Auto) 94, Lymphocytes (%) (Auto) 1, Monocytes (%) (Auto) 5, Eosinophils (%) (Auto) 0, Basophils (%) (Auto) 0, Neutrophils # (Auto) 5.7, Lymphocytes # (Auto) 0.1, Monocytes # (Auto) 0.3, Eosinophils # (Auto) 0.0, Basophils # (Auto) 0.0, Immature Granulocyte # (Auto) 0.0, Percent Immature Platelet Fraction 2.3, Sodium Level 136, Potassium Level 3.6, Chloride Level 96, Carbon Dioxide Level 27, Anion Gap 13, Blood Urea Nitrogen 48, Creatinine 2.08, Estimat Glomerular Filtration Rate 32, BUN/Creatinine Ratio 23, Glucose Level 196, Calcium Level 7.0, Corrected Calcium 8.0, Phosphorus Level 1.7, Magnesium Level 1.9, Total Bilirubin 0.2, Aspartate Amino Transf (AST/SGOT) 23, Alanine Aminotransferase (ALT/SGPT) 23, Alkaline Phosphatase 52, Total Protein 4.6, Albumin 2.7 02/12/22 03:35: Blood Gas Puncture Site LEFT RADIAL, Blood Gas Patient Temperature 36.9, Arterial Blood pH 7.47, Arterial Blood Partial Pressure CO2 42, Arterial Blood Partial Pressure O2 77, Arterial Blood HCO3 31, Arterial Blood Total CO2 32.0, Arterial Blood Oxygen Saturation 97, Arterial Blood Base Excess 6.8, Nickolas Test YES-POS, Blood Gas Ventilator Setting NO, Blood Gas Inspired Oxygen NA 02/12/22 09:42: White Blood Count 10.7, Red Blood Count 2.91, Hemoglobin 8.8, Hematocrit 28, M dm Corpuscular Volume 95, Mean Corpuscular Hemoglobin 30, Mean Corpuscular Hemoglobin Concent 32, Red Cell Distribution Width 14.3, Platelet Count 169, Mean Platelet Volume 9.7, Immature Granulocyte % (Auto) 1, Neutrophils (%) (Auto) 92, Lymphocytes (%) (Auto) 2, Monocytes (%) (Auto) 5, Eosinophils (%) (Auto) 0, Basophils (%) (Auto) 0, Neutrophils # (Auto) 9.9, Lymphocytes # (Auto) 0.2, Monocytes # (Auto) 0.5, Eosinophils # (Auto) 0.0, Basophils # (Auto) 0.0, Immature Granulocyte # (Auto) 0.1 02/12/22 11:01: Glucometer 166 02/12/22 15:48: Glucometer 161 02/12/22 20:23: Glucometer 179 02/13/22 04:09: White Blood Count 10.4, Red Blood Count 2.76, Hemoglobin 8.5, Hematocrit 27, Me an Corpuscular Volume 97, Mean Corpuscular Hemoglobin 31, Mean Corpuscular Hemoglobin Concent 32, Red Cell Distribution Width 14.5, Platelet Count 180, Mean Platelet Volume 10.1, Immature Granulocyte % (Auto) 1, Neutrophils (%) (Auto) 91, Lymphocytes (%) (Auto) 2, Monocytes (%) (Auto) 7, Eosinophils (%) (Auto) 0, Basophils (%) (Auto) 0, Neutrophils # (Auto) 9.4, Lymphocytes # (Auto) 0.2, Monocytes # (Auto) 0.7, Eosinophils # (Auto) 0.0, Basophils # (Auto) 0.0, Immature Granulocyte # (Auto) 0.1, Sodium Level 138, Potassium Level 4.3, Chloride Level 97, Carbon Dioxide Level 29, Anion Gap 12, Blood Urea Nitrogen 56, Creatinine 1.94, Estimat Glomerular Filtration Rate 35, BUN/Creatinine Ratio 29, Glucose Level 161, Lactic Acid Level 1.53, Calcium Level 7.3, Corrected Calcium 8.2, Phosphorus Level 2.8, Magnesium Level 1.8, Total Bilirubin 0.2, Aspartate Amino Transf (AST/SGOT) 22, Alanine Aminotransferase (ALT/SGPT) 21, Alkaline Phosphatase 61, Total Protein 5.1, Albumin 2.9 02/13/22 10:36: Glucometer 171 02/13/22 16:11: Glucometer 214 02/13/22 19:40: Glucometer 152 02/14/22 05:54: Glucometer 138 02/14/22 06:25: White Blood Count 7.5, Red Blood Count 2.82, Hemoglobin 8.6, Hematocrit 27, Mean Corpuscular Volume 97, Mean Corpuscular Hemoglobin 31, Mean Corpuscular Hemoglobin Concent 32, Red Cell Distribution Width 14.5, Platelet Count 217, Mean Platelet Volume 10.2, Immature Granulocyte % (Auto) 4, Neutrophils (%) (Aut o) 81, Lymphocytes (%) (Auto) 4, Monocytes (%) (Auto) 11, Eosinophils (%) (Auto) 0, Basophils (%) (Auto) 0, Neutrophils # (Auto) 6.0, Lymphocytes # (Auto) 0.3, Monocytes # (Auto) 0.8, Eosinophils # (Auto) 0.0, Basophils # (Auto) 0.0, Immature Granulocyte # (Auto) 0.3, Sodium Level 141, Potassium Level 3.7, Chloride Level 100, Carbon Dioxide Level 28, Anion Gap 13, Blood Urea Nitrogen 60, Creatinine 1.83, Estimat Glomerular Filtration Rate 37, BUN/Creatinine Ratio 33, Glucose Level 140, Calcium Level 7.6, Corrected Calcium 8.3, Magnesium Level 1.8, Total Bilirubin 0.4, Aspartate Amino Transf (AST/SGOT) 20, Alanine Aminotransferase (ALT/SGPT) 23, Alkaline Phosphatase 59, Total Protein 5.3, Albumin 3.1 02/14/22 11:09: Glucometer 192 02/14/22 15:48: Glucometer 182 Discharge Home Medications: Active Scripts Active Loperamide (Loperamide HCl) 2 Mg Capsule 2 Mg PO Q3HR PRN 7 Days [Lorazepam] 0.5 MG Tablet 0.5 Mg PO Q4H PRN 7 Days Diltiazem 24Hr ER (Diltiazem HCl) 240 Mg Cap.er.24h 240 Mg PO DAILY 7 Days Eliquis (Apixaban) 2.5 Mg Tablet 2.5 Mg PO BID 14 Days Iprat-Albut 0.5-3(2.5) mg/3 ml (Ipratropium/Albuterol Sulfate) 0.5 Mg-3 Mg (2.5 Mg Base)/3 Ml Ampul.neb 3 Ml INH RTBID 7 Days Reported Flonase Allergy Relief (Fluticasone Propionate) 50 Mcg/Actuation Rock View.susp 1 Rock View NS DAILY PRN Doxepin HCl 25 Mg Capsule 25 Mg PO HS PRN Ventolin Hfa (Albuterol Sulfate) 90 Mcg Hfa.aer.ad 1 Puff INH Q4H PRN Furosemide 20 Mg Tablet 20 Mg PO DAILY PRN Levothyroxine Sodium 125 Mcg Tablet 125 Mcg PO DAILY Metoprolol Succinate 50 Mg Tab.er.24h 25 Mg PO BID TAKES OF A 50MG TABLET Atorvastatin Calcium 20 Mg Tablet 20 Mg PO HS Prednisone 10 Mg Tab 10 Mg PO DAILY Alprazolam 1 Mg Tablet 1 Mg PO HS Pantoprazole Sodium 40 Mg Tablet.dr 40 Mg PO DAILY Folic Acid 1 Mg Tablet 1 Mg PO DAILY Instructions to patient/family Please see electronic discharge instructions given to patient. Diagnosis/Problems Diagnosis/Problems (1) Hypovolemic shock CHELSY OG DO Feb 14, 2022 15:46
[2022-02-14 15:49] VITALS: BP 145/69
== END 2022-02-14 17:20 | DRG 871 ==
LOC: ICU 17:40 → 4TH 02-13 13:03
PROVIDERS: ADMIT Internal Medicine; ATTEND Internal Medicine
PROC: 02HV33Z Insertion of Infusion Device into Superior Vena Cava, Percutaneous Approach (ICD-10-PCS; principal; 2022-02-09)
DX: A41.9 Sepsis, unspecified organism (principal); J18.9 Pneumonia, unspecified organism; R57.1 Hypovolemic shock; E27.40 Unspecified adrenocortical insufficiency; N17.9 Acute kidney failure, unspecified; E23.0 Hypopituitarism; E87.20 Acidosis, unspecified; I48.20 Chronic atrial fibrillation, unspecified; J44.0 Chronic obstructive pulmonary disease with (acute) lower respiratory infection; J81.1 Chronic pulmonary edema; N18.4 Chronic kidney disease, stage 4 (severe); I48.91 Unspecified atrial fibrillation; E78.5 Hyperlipidemia, unspecified; M79.7 Fibromyalgia; E03.9 Hypothyroidism, unspecified; F41.9 Anxiety disorder, unspecified; Z86.03 Personal history of neoplasm of uncertain behavior; Z87.891 Personal history of nicotine dependence; I12.9 Hypertensive chronic kidney disease with stage 1 through stage 4 chronic kidney disease, or unspecified chronic kidney disease; G62.9 Polyneuropathy, unspecified; K21.9 Gastro-esophageal reflux disease without esophagitis; Z79.01 Long term (current) use of anticoagulants; I71.40 Abdominal aortic aneurysm, without rupture, unspecified; Z86.16 Personal history of COVID-19; E86.0 Dehydration; R19.7 Diarrhea, unspecified; R09.02 Hypoxemia; E05.90 Thyrotoxicosis, unspecified without thyrotoxic crisis or storm
CPT/HCPCS: 36415; 71045; 74176; 80048; 80053; 82805; 82947; 83605; 83735; 84100; 84145; 84439; 84443; 85007; 85025; 85027; 93005; 93306; 94640; 94664